=== PATIENT | male | born 1945 | race Caucasian/White ===

== ENCOUNTER 2020-02-12 07:00 | Outpatient (REF) | payer MEDICARE, SELFPAY ==
[2020-02-12 11:37] LABS: Estimated Average Glucose 108 mg/dL; Hemoglobin A1c % 5.4 %
[2020-02-12 11:41] LABS: Alanine Aminotransferase 19 U/L (0-40); Albumin Level 4.2 g/dL (3.5-5.0); Alkaline Phosphatase 66 U/L (39-117); Anion Gap 13 (12-20); Aspartate Amino Transferase 17 U/L (5-37); Bilirubin Total 0.4 mg/dL (0.0-1.0); Blood Urea Nitrogen 24 mg/dL (9-16); Calcium 8.8 mg/dL (8.4-10.2); Carbon Dioxide 25 mmol/L (22-29); Chloride 106 mmol/L (96-108); Cholesterol 184 mg/dL; Estimated Glomerular Filt Rate > 60; Glucose Fasting 106 mg/dL (60-99); HDL Cholesterol 49 mg/dL; LDL Cholesterol Calculated 112 mg/dl; Potassium 4.5 mmol/l (3.3-5.1); Sodium 139 mmol/L (135-145); Total Protein 6.6 g/dL (6.5-8.0); Triglycerides 117 mg/dL
== END 2020-02-12 07:01 | disposition home or self-care (01) ==
LOC: HO.HMGCLDS 07:00
PROVIDERS: PCP Internal Medicine; Visit Provider Internal Medicine
DX: E78.9 Disorder of lipoprotein metabolism, unspecified (principal); R73.09 Other abnormal glucose; I10 Essential (primary) hypertension
CPT/HCPCS: 80053; 80061; 83036

== ENCOUNTER 2020-11-19 09:23 | Emergency (ER) | payer MEDICARE, SELFPAY ==
[2020-11-19] VITALS (7 sets, daily range): BP systolic 146–162; BP diastolic 51–67; PULSE 51–57; RESP 14–18; TEMP 36.5–36.6; O2SAT 97–98; BMI 32.5
--- NOTE | 2020-11-19 | ECG_ITS ---
Test Reason : ABNORMAL EKG Blood Pressure : / mmHG Vent. Rate : 055 BPM Atrial Rate : 055 BPM P-R Int : 190 ms QRS Dur : 098 ms QT Int : 462 ms P-R-T Axes : 041 -32 031 degrees QTc Int : 441 ms Sinus bradycardia Left axis deviation Abnormal ECG When compared with ECG of 18-OCT-2014 13:04, No significant change was found Referred By: Generic ED Physician Electronically Signed By:BERNARDINO LIANG
--- NOTE | ~2020-11-19 | MR_ITS ---
EXAMINATION: MRI BRAIN WITHOUT CONTRAST CLINICAL INFORMATION: Dizziness. Blurry vision. COMPARISON: CT scan of the head 11/19/2020. Brain MRI 10/05/2008. TECHNIQUE: Multiplanar MR imaging of the brain was performed without contrast. FINDINGS: There are a few scattered nonspecific foci of T2 FLAIR signal hyperintensity within the periventricular white matter. No acute territorial infarct. No pathological magnetic susceptibility artifact. Intracranial vascular flow voids are maintained. There is no intracranial mass effect or midline shift. No abnormal extra-axial collection. Lateral and third ventricles are normal. No hydrocephalus. Midline structures including the cervicomedullary junction are normal. No acute bone marrow signal changes. No mastoid or middle ear effusion. Trivial mucosal thickening within the alveolar recesses of the maxillary sinuses. Otherwise no active paranasal sinus disease. Globes and orbits are symmetric. MR/MR head/brain wo con IMPRESSION: Unremarkable examination. No evidence of acute territorial infarct or hemorrhage.
--- NOTE | ~2020-11-19 | XR_ITS ---
EXAMINATION: XR CHEST CLINICAL INFORMATION: Chest pain COMPARISON: Previous chest x-ray September 2014 TECHNIQUE: Frontal view of the chest was obtained. FINDINGS: The cardiac and mediastinal contours are stable. The lung volumes are low. There is subsegmental atelectasis at the left lung base. The lungs are otherwise clear. There is no pleural effusion or pneumothorax. There are degenerative changes of the spine. XR/XR chest 1V IMPRESSION: Low lung volumes and subsegmental atelectasis at the left lung base.
--- NOTE | ~2020-11-19 | CT_ITS ---
EXAMINATION: CT HEAD WITHOUT CONTRAST CLINICAL INFORMATION: Dizziness. COMPARISON: None TECHNIQUE: Contiguous axial imaging was performed from the skull base to vertex without intravenous administration of contrast. This CT examination was performed using dose optimization techniques as appropriate, variously including the following: *Automated exposure control *Adjustment of mA and/or kV according to patient size (this includes techniques or standardized protocols for targeted exams where dose is matched to indication/reason for exam; i.e. extremities or head) *Use of iterative reconstruction technique DLP: 631 mGy-cm FINDINGS: There is no evidence of acute intracranial hemorrhage or territorial infarction. No abnormal mass effect or midline shift is seen. Waters to white matter differentiation is well preserved. No extra-axial fluid collections are identified. The ventricles are normal in size. There is no abnormal attenuation within the brain parenchyma. The osseous structures and soft tissues are normal. The mastoid air cells and visualized portions of the paranasal sinuses are well aerated. CT/CT head/brain wo con IMPRESSION: No acute intracranial process seen.
[2020-11-19 13:07] LABS: MANUAL DIFF FLAG NO
--- NOTE | 2020-11-19 13:07 | ED_ITS ---
HPI - Dizziness General Chief Complaint: Dizziness Stated Complaint: abormal ekg Time Seen by Provider: 11/19/20 09:40 Source: patient and family ( at bedside ) Mode of arrival: ambulatory Limitations: no limitations History of Present Illness HPI Narrative: 75-year-old male with a past medical history of hypertension, migraine headaches, prostate cancer in remission and head injury over [address] scan of brain which was normal per patient being followed by Dr. Clark who denies being on any blood thinners presenting to the ED with complaints of dizziness since Wednesday when he got out of bed too quickly. He reports the dizziness is worse when he lays down flat or when he stands up quickly. He reports he has associated nausea. He also reports blurry vision when the dizziness comes on. Patient reports he took some of his ex-'s meclizine which made his symptoms worse on Wednesday. Reports that he took his son's Dramamine on Wednesday and he felt mild improvement although did not taken any longer. He reports he did not take any medications today. Otherwise denies any recent falls or head injury, headaches at this time, changes of vision at this time, any episodes of vomiting, chest pain, shortness of breath, dyspnea on exertion, orthopnea, abdominal pain, dysuria, hematuria, black or bloody stools, palpitations or lower extremity edema or any other symptoms complaints or kwadwo rns at this time. MD elicited complaint: dizziness Onset (ago): day(s) (4 days) Timing: sudden onset and intermittent Severity: moderate Description: other (Feels like his whole body is upside down and his head on the floor) Context: change in body position History of similar symptoms: No Exacerbating factors: movement/ambulation, change in body position and position/lying down Relieving factors: nothing Associated symptoms: nausea and other (Blurry vision) Related Data Home Medications Medication Instructions Recorded Confirmed amitriptyline 10 mg tablet 10 mg PO BEDTIME 02/19/20 solifenacin 10 mg tablet 10 mg PO DAILY 02/19/20 Previous Rx's Medication Instructions Recorded ezetimibe 10 mg tablet 10 mg PO DAILY #90 tab 07/07/20 lisinopril 40 mg tablet 40 mg PO DAILY #90 tab 08/07/20 hydrochlorothiazide 12.5 mg PO DAILY #30 tab 11/19/20 Allergies Allergy/AdvReac Type Severity Reaction Status Date / Time sertraline AdvReac Unknown facial Verified 11/19/20 09:37 numbness simvastatin AdvReac Unknown sore Verified 11/19/20 09:37 muscles Review of Systems Review of Systems: Constitutional : No Fever, No Chills, No Night Sweats, No Fatigue, No Malaise ENT/Mouth : No Ear Pain, No Nasal Congestion, No Sinus Pain, No sore throat, No Rhinorrhea Eyes: No Eye Pain, No Swelling, No Redness, No Foreign Body, No Discharge, No Vision Changes Cardiovascular : No Chest Pain, No SOB, No Dyspnea on Exertion, No Orthopnea, No Palpitations Respiratory : No Cough, No Sputum, No Wheezing, No Dyspnea Gastrointestinal : Positive intermittent nausea with the blurry vision and dizziness, No Vomiting, No Diarrhea, No Constipation, No abdominal Pain, No Hematochezia, No Melena Genitourinary : No Dysuria, No Urinary Frequency, No Urinary Incontinence, No Urgency, No Flank Pain Musculoskeletal : No joint pain, No Myalgias Skin : No lacerations Neuro : Positive intermittent dizziness with blurry vision, No Focal weakness, no general weakness, No Numbness, No Paresthesias, No Loss of Consciousness, No Headache Yes all other systems are reviewed and are negative [facility] Past Medical History Attestation statement: The following information was validated with the patient. Surgical History H/O prostatectomy History of umbilical hernia repair Hx of cholecystectomy Family History Family History Father Skin cancer Lymphoma Mother No problems noted. Daughter Migraine Maternal Grandfather No problems noted. Maternal Grandmother No problems noted. Paternal Grandfather No problems noted. Paternal Grandmother No problems noted. Brother No problems noted. Son No problems noted. Son No problems noted. Social History Social History Patient Tobacco Use Status: Current someday Tobacco user Use of substances other than those prescribed or required for medical reasons: No Advance Directives: No Advance Directives Information Provided: Yes Physical Exam Vital Signs: Vital Signs: Last Vital Signs Temp 97.9 F 11/19/20 14:37 Pulse 55 11/19/20 16:16 Resp 18 11/19/20 16:16 BP 146/51 H 11/19/20 16:16 Pulse Ox 97 11/19/20 16:16 Body Mass Index 32.5 Vital signs have been reviewed as normal and appeared to be correct. Blood pressure normal. Heart rate normal. Respiration rate normal. Temperature normal. Oxygen saturation normal. Appearance: Alert. Oriented X3. No acute distress. Head: Normal external exam. Normocephalic. Atraumatic. Able to rotate head bilaterally. Eyes: PERRLA. EOMI. No nystagmus noted. Conjunctiva and sclera normal. Eyelids normal. Corneal reflex normal. ENT: EAC normal. TM's Normal. Hearing normal. Pharynx normal. Uvula midline. tongue midline. Moist mucous membranes. No trismus noted. No drooling noted. No muffled voice noted. No nystagmus noted. Neck: Normal inspection. Neck supple. FROM. No adenopathy. Trachea midline. Thyroid Normal. No meningeal signs. No neck mass noted. CVS: Normal heart rate and rhythm. Heart sound normal. No murmurs noted. Pulses normal throughout. Respiratory: No respiratory distress. Painless inspiration. Breath sounds normal. No wheezes/rales/rhonchi noted. Chest nontender. No accessory muscle usage noted or decreased air movement noted. Abdomen: Soft and nontender. Bowel sounds normal in all 4 quadrants. No distention noted. No organomegaly noted. No visible injury noted. Back: No CVA tenderness. Full range of motion noted. Skin: Skin warm and dry. Normal skin color. Normal skin turgor. No rashes/lesions/lacerations noted. Extremities: No lower extremity edema. Extremities exhibit normal range of motion. Extremities nontender. Able to shrug shoulders bilaterally and keep up against resistance. Neuro: Oriented X 3. No motor deficit. No sensory deficit. Reflexes normal. Moving all extremities. No focal motor deficits. Cranial nerves II-XI intact bilaterally. Facial strength normal. Normal cognition. Speech normal. Gait normal. Strength 5/5 throughout. No pronator drift. No tremor noted. No fasciculations noted. No rigidity noted. Muscle tone normal throughout. No asterixis noted. Fgpyro-pd-paee test normal. Heel to white test normal. Tandem gait normal. Does not sway with eyes open. Romberg test negative. Rapid alternating movement upper extremity normal. Rapid alternating movement lower extremity normal. Hand drop from overhead Misses face. NIHSS score 0. NIH Stroke Scale Internal: Initial- Upon Arrival Time: 12:00 Level of Consciousness: Alert Level of Consciousness Questions: Answers both questions correctly Level of Consciousness Commands: Performs both tasks correctly Best Gaze: Normal Visual: No visual loss Facial Palsy: Normal Motor Arm (Right): No drift Motor Arm (Left): No drift Motor Leg (Right): No drift Motor Leg (Left): No drift Limb Ataxia: Absent Sensory: Normal Best Language: No aphasia Dysarthia: Normal Extinction and Inattention: No abnormality Score: 0 Course Course Course Narrative: 12pm - 75-year-old male presenting to the ED with complaints of dizziness since Wednesday when he got out of bed too quickly. He reports the dizziness is worse when he lays down flat or when he stands up quickly. He reports he has associated nausea. He also reports blurry vision when the dizziness comes on. Patient not on any blood thinners. No recent head injury or falls. On exam patient is alert and oriented x3. Not in any acute distress. Patient has a normal neuro exam and normal steady gait. NIH SS score 0. Patient has non disabling symptoms therefore not a tPA candidate and symptoms started 4 days ago. CV RRR. Lungs clear to auscultation. Abdomen is soft and nontender. No lower extremity edema or calf tenderness is noted. Plan: Labs, chest x-ray, EKG, CT scan of brain, orthostatic vitals then re- evaluate. Reevaluation(s) Reevaluation #1: - labs reviewed and all within normal limits. UA within normal limits no evidence of UTI. EKG within normal limits no acute processes were noted. CT scan of brain within normal limits no acute processes were noted. Chest x-ray within normal limits no acute processes are noted. MRI of brain without contrast negative for stroke or any acute processes. Will DC home with a short course of hydrochlorothiazide 12.5 mg for vertigo and instructions follow-up with primary care provider. Patient and at bedside understand and agree to this plan. Time: 16:37 [facility] - Dizziness Medical Records Attestation: I reviewed the patient's medical records. Lab Data Attestation: I reviewed the patient's lab results. Result diagrams: 11/19/20 13:00 11/19/20 13:00 Labs: Lab Results 11/19/20 11/19/20 11/19/20 Range/Units 13:00 13:00 13:00 WBC 9.3 (4.8-10.8) X10*3/uL RBC 4.96 (4.60-5.80) X10*6/uL Hgb 14.5 (14.0-18.0) g/dl Hct 42.4 (42-52) % MCV 85.5 (80-98) fL MCH 29.2 (27.0-33.0) pg MCHC 34.2 (31.0-36.0) g/dl RDW 14.8 (11.0-16.0) % Plt Count 259 (160-400) X10*3/uL MPV 9.4 (9.4-12.4) fL Immature Gran % (Auto) 0.6 H (0.0-0.4) % Neut % (Auto) 63.0 (45-73) % Lymph % (Auto) 22.6 (20-40) % [place] % (Auto) 6.4 (2-11) % Eos % (Auto) 6.8 H (0-4) % Baso % (Auto) 0.6 (0-2) % Lymph # (Auto) 2.1 (1.2-4.9) X10*3/uL [place] # (Auto) 0.6 (0.1-1.2) X10*3/uL Eos # (Auto) 0.6 H (0.0-0.4) X10*3/uL Baso # (Auto) 0.1 (0.0-0.2) X10*3/uL Abs Immat Gran (auto) 0.06 H (0.00-0.03) X10*3/uL Absolute Neuts (auto) 5.9 (2.0-8.3) X10*3/uL Absolute Nucleated RBC 0.000 (0.0-0.012) X10*3/uL Nucleated RBC % (auto) 0.0 (0.0-0.2) /100WBC Sodium 141 (135-145) mmol/L Potassium 4.3 (3.3-5.1) mmol/L Chloride 108 (96-108) mmol/L Carbon Dioxide 24 (22-29) mmol/L Anion Gap 13 (12-20) BUN 16 (9-16) mg/dL Creatinine 0.95 (0.5-1.4) mg/dL Estim Creat Clear Calc 64.4 Estimated GFR > 60 Random Glucose 93 (60-115) mg/dL Calcium 9.1 (8.4-10.2) mg/dL Magnesium (1.6-2.6) mg/dL Total Bilirubin (0.0-1.0) mg/dL AST (5-37) U/L ALT (0-40) U/L Alkaline Phosphatase (39-117) U/L Troponin I High Sens < 3.5 (<3.5-35.0) ng/L B-Natriuretic Peptide (<100) pg/mL Total Protein (6.5-8.0) g/dL Albumin (3.5-5.0) g/dL Urine Color Urine Appearance Urine pH (5.0-8.0) Ur Specific [place] (1.005-1.025) Urine Protein (NEG-TRACE) MG/DL Urine Glucose (UA) (NEG) MG/DL Urine Ketones (NEG) MG/DL Urine Blood (NEG) Urine Nitrite (NEG) Ur Leukocyte Esterase (NEG) 11/19/20 11/19/20 11/19/20 Range/Units 13:00 13:00 14:03 WBC (4.8-10.8) X10*3/uL RBC (4.60-5.80) X10*6/uL Hgb (14.0-18.0) g/dl Hct (42-52) % MCV (80-98) fL MCH (27.0-33.0) pg MCHC (31.0-36.0) g/dl RDW (11.0-16.0) % Plt Count (160-400) X10*3/uL MPV (9.4-12.4) fL Immature Gran % (Auto) (0.0-0.4) % Neut % (Auto) (45-73) % Lymph % (Auto) (20-40) % [place] % (Auto) (2-11) % Eos % (Auto) (0-4) % Baso % (Auto) (0-2) % Lymph # (Auto) (1.2-4.9) X10*3/uL [place] # (Auto) (0.1-1.2) X10*3/uL Eos # (Auto) (0.0-0.4) X10*3/uL Baso # (Auto) (0.0-0.2) X10*3/uL Abs Immat Gran (auto) (0.00-0.03) X10*3/uL Absolute Neuts (auto) (2.0-8.3) X10*3/uL Absolute Nucleated RBC (0.0-0.012) X10*3/uL Nucleated RBC % (auto) (0.0-0.2) /100WBC Sodium 139 (135-145) mmol/L Potassium 4.7 (3.3-5.1) mmol/L Chloride 107 (96-108) mmol/L Carbon Dioxide 22 (22-29) mmol/L Anion Gap 15 (12-20) BUN 16 (9-16) mg/dL Creatinine 0.92 (0.5-1.4) mg/dL Estim Creat Clear Calc 66.5 Estimated GFR > 60 Random Glucose 94 (60-115) mg/dL Calcium 9.1 (8.4-10.2) mg/dL Magnesium 2.1 (1.6-2.6) mg/dL Total Bilirubin 0.4 (0.0-1.0) mg/dL AST 19 (5-37) U/L ALT 19 (0-40) U/L Alkaline Phosphatase 75 (39-117) U/L Troponin I High Sens (<3.5-35.0) ng/L B-Natriuretic Peptide 43 (<100) pg/mL Total Protein 7.3 (6.5-8.0) g/dL Albumin 4.5 (3.5-5.0) g/dL Urine Color STRAW Urine Appearance CLEAR Urine pH 6.0 (5.0-8.0) Ur Specific [place] <= 1.005 (1.005-1.025) Urine Protein NEG (NEG-TRACE) MG/DL Urine Glucose (UA) NEG (NEG) MG/DL Urine Ketones NEG (NEG) MG/DL Urine Blood NEG (NEG) Urine Nitrite NEG (NEG) Ur Leukocyte Esterase NEG (NEG) Imaging Data Chest x-ray: Attestation: I personally reviewed and interpreted this imaging study as follows: Radiologist's impression: FINDINGS: The cardiac and mediastinal contours are stable. The lung volumes are low. There is subsegmental atelectasis at the left lung base. The lungs are otherwise clear. There is no pleural effusion or pneumothorax. There are degenerative changes of the spine. XR/XR chest 1V IMPRESSION: Low lung volumes and subsegmental atelectasis at the left lung base. CT scan - head: Attestation: I personally reviewed and interpreted this imaging study as follows: Radiologist's impression: FINDINGS: There is no evidence of acute intracranial hemorrhage or territorial infarction. No abnormal mass effect or midline shift is seen. Waters to white matter differentiation is well preserved. No extra-axial fluid collections are identified. The ventricles are normal in size. There is no abnormal attenuation within the brain parenchyma. The osseous structures and soft tissues are normal. The mastoid air cells and visualized portions of the paranasal sinuses are well aerated. CT/CT head/brain wo con IMPRESSION: No acute intracranial process seen. MRI of brain: Attestation: I personally reviewed and interpreted this imaging study as follows: Radiologist's impression: FINDINGS: There is no evidence of acute intracranial hemorrhage or territorial infarction. No abnormal mass effect or midline shift is seen. Waters to white matter differentiation is well preserved. No extra-axial fluid collections are identified. The ventricles are normal in size. There is no abnormal attenuation within the brain parenchyma. The osseous structures and soft tissues are normal. The mastoid air cells and visualized portions of the paranasal sinuses are well aerated. CT/CT head/brain wo con IMPRESSION: No acute intracranial process seen. ECG Data Attestation: I personally reviewed and interpreted this ECG as follows: ECG interpretation date: 11/19/20 ECG interpretation time: 09:36 Interpretation: Sinus bradycardia with ventricular rate of 55 with left axis deviation no acute ischemic change noted. Similar when compared to prior EKG on 03/20/2015. Critical Care Time Critical Care Time Critical Care Time: Yes Total Critical Care Time: 60 Attestation: I personally attest to this time spent taking care of the patient Discharge Plan Discharge Clinical Impression: Benign paroxysmal positional vertigo Patient Disposition: Home, Self-Care Instructions: Benign Paroxysmal Positional Vertigo (ED) Prescriptions: New hydrochlorothiazide 12.5 mg tablet 12.5 mg PO DAILY Qty: 30 RF: 0 No Action ezetimibe 10 mg tablet 10 mg PO DAILY Qty: 90 RF: 0 lisinopril 40 mg tablet 40 mg PO DAILY Qty: 90 RF: 0 amitriptyline 10 mg tablet 10 mg PO BEDTIME RF: 0 solifenacin 10 mg tablet 10 mg PO DAILY RF: 0 Referrals: Jessica Clark MD [Primary Care Provider] - 2 days Print Language: Chinese
[2020-11-19 13:09] LABS: Basophils Absolute Auto 0.1 X10*3/uL (0.0-0.2); Basophils Percent Auto 0.6 % (0-2); Eosinophils Absolute Auto 0.6 X10*3/uL (0.0-0.4); Eosinophils Percent Auto 6.8 % (0-4); Hematocrit 42.4 % (42-52); Hemoglobin 14.5 g/dl (14.0-18.0); Imm Gran Abs Auto 0.06 X10*3/uL (0.00-0.03); Imm Gran Pct Auto 0.6 % (0.0-0.4); Lymphocytes Absolute Auto 2.1 X10*3/uL (1.2-4.9); Lymphocytes Percent Auto 22.6 % (20-40); Mean Corpuscular HGB Conc 34.2 g/dl (31.0-36.0); Mean Corpuscular Hemoglobin 29.2 pg (27.0-33.0); Mean Corpuscular Volume 85.5 fL (80-98); Mean Platelet Volume 9.4 fL (9.4-12.4); Monocytes Absolute Auto 0.6 X10*3/uL (0.1-1.2); Monocytes Percent Auto 6.4 % (2-11); Neutrophils Absolute Auto 5.9 X10*3/uL (2.0-8.3); Platelet Count 259 X10*3/uL (160-400); Red Blood Count 4.96 X10*6/uL (4.60-5.80); Red Cell Distribution Width 14.8 % (11.0-16.0); White Blood Count 9.3 X10*3/uL (4.8-10.8)
[2020-11-19 13:31] LABS: Anion Gap 13 (12-20); Blood Urea Nitrogen 16 mg/dL (9-16); Calcium 9.1 mg/dL (8.4-10.2); Carbon Dioxide 24 mmol/L (22-29); Chloride 108 mmol/L (96-108); Creatinine Clr Calc Pharmacy 64.4; Estimated Glomerular Filt Rate > 60; Glucose Random 93 mg/dL (60-115); Potassium 4.3 mmol/L (3.3-5.1); Sodium 141 mmol/L (135-145)
[2020-11-19 13:32] LABS: Alanine Aminotransferase 19 U/L (0-40); Albumin Level 4.5 g/dL (3.5-5.0); Alkaline Phosphatase 75 U/L (39-117); Anion Gap 15 (12-20); Aspartate Amino Transferase 19 U/L (5-37); Bilirubin Total 0.4 mg/dL (0.0-1.0); Blood Urea Nitrogen 16 mg/dL (9-16); Calcium 9.1 mg/dL (8.4-10.2); Carbon Dioxide 22 mmol/L (22-29); Chloride 107 mmol/L (96-108); Creatinine Clr Calc Pharmacy 66.5; Estimated Glomerular Filt Rate > 60; Glucose Random 94 mg/dL (60-115); Magnesium 2.1 mg/dL (1.6-2.6); Potassium 4.7 mmol/L (3.3-5.1); Sodium 139 mmol/L (135-145); Total Protein 7.3 g/dL (6.5-8.0)
[2020-11-19 13:40] LABS: B Type Natriuretic Peptide 43 pg/mL (<100); Troponin-I High Sensitivity < 3.5 ng/L (<3.5-35.0)
[2020-11-19 14:16] LABS: Glucose Urine UA NEG (NEG); Leukocyte Esterase Urine NEG (NEG); Nitrite Urine NEG (NEG); Specific Gravity - Urine <= 1.005 (1.005-1.025); Urine Blood NEG (NEG); Urine Ketones NEG (NEG); Urine Protein NEG (NEG-TRACE)
[2020-11-19 14:19] LABS: Appearance Urine CLEAR; Color Urine STRAW
--- NOTE | 2020-11-19 16:19 | PC.NURSE ---
Pt reports feeling less dizzy and lightheaded since arriving to the ed. Pt returned from MRI, results pending He states that he felt slightly dizzy when he got up from the MRI bed. No apparent distress noted. Pt resting quietly, at bedside.
== END 2020-11-19 17:10 | disposition home or self-care (01) ==
PROVIDERS: Physician Assistant Medical; Emergency Provider Emergency Medicine Emergency Medical Services; PCP Internal Medicine
DX: H81.10 Benign paroxysmal vertigo, unspecified ear (principal); I10 Essential (primary) hypertension; F17.210 Nicotine dependence, cigarettes, uncomplicated; Z85.46 Personal history of malignant neoplasm of prostate
CPT/HCPCS: 36415; 70450; 70551; 71045; 80048; 80053; 81003; 83735; 83880; 84484; 85025; 93005; 99284; 99291

== ENCOUNTER 2021-05-14 06:02 | Outpatient (REF) | payer MEDICARE, SELFPAY ==
[2021-05-14 11:54] LABS: Alanine Aminotransferase 19 U/L (0-40); Albumin Level 4.1 g/dL (3.5-5.0); Alkaline Phosphatase 65 U/L (39-117); Anion Gap 11 (12-20); Aspartate Amino Transferase 17 U/L (5-37); Bilirubin Total 0.4 mg/dL (0.0-1.0); Blood Urea Nitrogen 23 mg/dL (9-16); Calcium 9.2 mg/dL (8.4-10.2); Carbon Dioxide 28 mmol/L (22-29); Chloride 108 mmol/L (96-108); Estimated Glomerular Filt Rate > 60; Glucose Random 107 mg/dL (60-115); Potassium 4.6 mmol/L (3.3-5.1); Sodium 142 mmol/L (135-145); Total Protein 6.7 g/dL (6.5-8.0)
== END 2021-05-14 06:03 | disposition home or self-care (01) ==
LOC: HO.HMGCLDS 06:02
PROVIDERS: Visit Provider Internal Medicine
DX: E78.9 Disorder of lipoprotein metabolism, unspecified (principal); G43.909 Migraine, unspecified, not intractable, without status migrainosus; I10 Essential (primary) hypertension; N32.9 Bladder disorder, unspecified; E66.09 Other obesity due to excess calories
CPT/HCPCS: 36415; 80053

== ENCOUNTER 2021-09-09 09:47 | Outpatient (REF) | payer MEDICARE, SELFPAY ==
[2021-09-09 11:43] LABS: Alanine Aminotransferase 20 U/L (0-40); Albumin Level 4.1 g/dL (3.5-5.0); Alkaline Phosphatase 69 U/L (39-117); Anion Gap 10 (12-20); Aspartate Amino Transferase 16 U/L (5-37); Bilirubin Total 0.7 mg/dL (0.0-1.0); Blood Urea Nitrogen 23 mg/dL (9-16); Calcium 9.2 mg/dL (8.4-10.2); Carbon Dioxide 26 mmol/L (22-29); Chloride 109 mmol/L (96-108); Estimated Glomerular Filt Rate > 60; Glucose Random 111 mg/dL (60-115); Potassium 4.4 mmol/L (3.3-5.1); Sodium 141 mmol/L (135-145); Total Protein 6.6 g/dL (6.5-8.0)
[2021-09-11 00:52] LABS: LDL Cholesterol Direct 153 mg/dL (<100)
== END 2021-09-09 09:48 | disposition home or self-care (01) ==
LOC: HO.HMGCLDS 09:47
PROVIDERS: Visit Provider Internal Medicine
DX: E78.9 Disorder of lipoprotein metabolism, unspecified (principal); G43.909 Migraine, unspecified, not intractable, without status migrainosus; H91.93 Unspecified hearing loss, bilateral; I10 Essential (primary) hypertension; N32.9 Bladder disorder, unspecified; E66.09 Other obesity due to excess calories
CPT/HCPCS: 36415; 80053; 83721

== ENCOUNTER 2021-11-22 07:44 | Emergency (ER) | payer MEDICARE, SELFPAY ==
--- NOTE | ~2021-11-22 | XR_ITS ---
EXAMINATION: XR CHEST CLINICAL INFORMATION: Chest pain COMPARISON: Chest 11/19/2020 TECHNIQUE: Frontal view of the chest was obtained. FINDINGS: The lungs are hyperinflated with no acute pneumonic process seen. Heart size and pulmonary vascularity is normal. No gross bony abnormality seen. XR/XR chest 1V IMPRESSION: Hypoexpanded lungs without acute process.
--- NOTE | 2021-11-22 07:51 | ECG_ITS ---
Test Reason : cp Blood Pressure : / mmHG Vent. Rate : 065 BPM Atrial Rate : 065 BPM P-R Int : 192 ms QRS Dur : 104 ms QT Int : 440 ms P-R-T Axes : 037 -35 038 degrees QTc Int : 457 ms Normal sinus rhythm Left axis deviation Nonspecific ST abnormality Abnormal ECG When compared with ECG of 19-NOV-2020 09:36, Nonspecific T wave abnormality no longer evident in Anterior leads Referred By: Phyllis Mcdaniel Electronically Signed By:WALLACE RAMON MD
[2021-11-22 07:53] VITALS: BP 160/82; BP 172/67; PULSE 63; PULSE 70; RESP 16; TEMP 36.6; O2SAT 96; O2SAT 97; BMI 31.1
[2021-11-22 08:01] VITALS: BP 163/63; PULSE 62; RESP 16; O2SAT 96
[2021-11-22 08:18] LABS: MANUAL DIFF FLAG NO
[2021-11-22 08:21] LABS: Basophils Absolute Auto 0.1 X10*3/uL (0.0-0.2); Basophils Percent Auto 0.7 % (0-2); Eosinophils Absolute Auto 0.4 X10*3/uL (0.0-0.4); Eosinophils Percent Auto 4.6 % (0-4); Hematocrit 40.6 % (42.0-52.0); Hemoglobin 13.9 g/dl (14.0-18.0); Imm Gran Abs Auto 0.07 X10*3/uL (0.00-0.03); Imm Gran Pct Auto 0.9 % (0.0-0.4); Mean Corpuscular HGB Conc 34.2 g/dl (31.0-36.0); Mean Corpuscular Hemoglobin 29.6 pg (27.0-33.0); Mean Corpuscular Volume 86.4 fL (80.0-98.0); Mean Platelet Volume 9.4 fL (9.4-12.4); Monocytes Absolute Auto 0.7 X10*3/uL (0.1-1.2); Monocytes Percent Auto 8.4 % (2-11); Neutrophils Absolute Auto 4.9 x10*3/uL (2.0-8.3); Neutrophils Percent Auto 60.4 % (45-73); Platelet Count 291 X10*3/uL (160-400); Red Cell Distribution Width 14.7 % (11.0-16.0); White Blood Count 8.1 X10*3/uL (4.8-10.8)
[2021-11-22 08:27] LABS: INTERNATIONAL NORM RATIO 0.9 (0.9-1.1); Prothrombin Time 10.6 SEC (10.0-13.1)
[2021-11-22 08:34] LABS: D Dimer High Sensitivity < 150 NG/ML
[2021-11-22 08:38] LABS: Alanine Aminotransferase 18 U/L (0-40); Albumin Level 4.1 g/dL (3.5-5.0); Alkaline Phosphatase 66 U/L (39-117); Anion Gap 14 (12-20); Aspartate Amino Transferase 17 U/L (5-37); Bilirubin Total 0.6 mg/dL (0.0-1.0); Blood Urea Nitrogen 24 mg/dL (9-16); Calcium 8.9 mg/dL (8.4-10.2); Carbon Dioxide 24 mmol/L (22-29); Chloride 109 mmol/L (96-108); Creatinine Clr Calc Pharmacy 58.1; Estimated Glomerular Filt Rate > 60; Glucose Random 131 mg/dL (60-115); Potassium 4.6 mmol/L (3.3-5.1); Sodium 142 mmol/L (135-145); Total Protein 6.7 g/dL (6.5-8.0)
[2021-11-22 08:42] LABS: Troponin-I High Sensitivity 60.1 ng/L (<3.5-35.0)
[2021-11-22 09:10] LABS: IDNOW Serial# 16C4AD1C
--- NOTE | 2021-11-22 09:10 | ED_ITS ---
HPI - Chest Pain General Chief Complaint: Chest Pain Stated Complaint: heavy/chest discomfort Time Seen by Provider: 11/22/21 07:55 Source: patient Mode of arrival: EMS History of Present Illness HPI narrative: 76-year-old male with history of hypertension denies any diabetes states that for the past 3 days he has been having intermittent and transient chest pressure on exertion that is relieved by rest. He denies any associated dizziness, shortness of breath, nausea, diaphoresis and states that this morning he began having the same chest pressure that seemed to stay longer and again was not associated with any additional symptoms, EMS provided aspirin in route. Patient states is Watson subsided at this time. Related Data Home Medications Medication Instructions Recorded Confirmed solifenacin 10 mg tablet 10 mg PO DAILY 02/19/20 09/09/21 aspirin 81 mg tablet,delayed 81 mg PO DAILY 09/09/21 09/09/21 release (Adult Aspirin Regimen) omega-3 fatty acids-fish oil 360 1 cap PO DAILY 09/09/21 09/09/21 mg-1,200 mg capsule (Fish Oil) Previous Rx's Medication Instructions Recorded ezetimibe 10 mg tablet 10 mg PO DAILY #90 tabs 01/07/21 cyclobenzaprine 5 mg tablet 5 mg PO BEDTIME 30 days #30 tabs 05/13/21 amitriptyline 10 mg tablet 10 mg PO BEDTIME 90 days #90 tabs 06/30/21 lisinopril 40 mg tablet 40 mg PO DAILY 90 days #90 tabs 09/09/21 Allergies Allergy/AdvReac Type Severity Reaction Status Date / Time sertraline AdvReac Unknown facial Verified 11/22/21 07:59 numbness simvastatin AdvReac Unknown sore Verified 11/22/21 07:59 muscles Review of Systems Review of Systems: Pertinent positives and negatives as stated in HPI 10 point review of systems is otherwise negative. [facility] Past Medical History Source: nursing notes reviewed Surgical History H/O prostatectomy History of umbilical hernia repair Hx of cholecystectomy Family History Family History Father Skin cancer Lymphoma Mother No problems noted. Daughter Migraine Maternal Grandfather No problems noted. Maternal Grandmother No problems noted. Paternal Grandfather No problems noted. Paternal Grandmother No problems noted. Brother No problems noted. Son No problems noted. Son No problems noted. Social History Social History Housing: House Patient Tobacco Use Status: Current someday Tobacco user Tobacco use type: Cigar e-Cigarette/Vaping Use: Never Used Advance Directives: Yes Advance Directives Information Provided: Yes Advance Directives on File: No Current occupational status: retired Cognitive needs: No Hearing needs: No Vision needs: No Physical Exam Vital Signs: Vital Signs: Last Vital Signs Temp 98 F 11/22/21 07:53 Pulse 56 11/22/21 10:16 Resp 14 11/22/21 10:16 BP 136/57 L 11/22/21 10:16 Pulse Ox 97 11/22/21 10:16 O2 Del Method 11/22/21 10:16 BMI result Body Mass Index 31.7 VITAL SIGNS: Reviewed. GENERAL: Elevated BMI,Well developed, well nourished, in no acute distress. HEAD: Normocephalic/atraumatic EYES: PERRLA, EOMI EARS: Ext canals without abnormality OROPHARYNX: no oral lesions noted, posterior pharynx clear NECK: Supple, no adenopathy LUNGS: Normal breath sounds. No adventitious sounds or accessory muscle use. SpO2<96> CARDIOVASCULAR: Regular rate and rhythm without noted murmurs, no JVD or lower extremity edema. ABDOMEN: Soft, non-tender, non-distended with bowel sounds. MUSCULOSKELETAL: No tenderness, deformities, or effusions noted on gross ins pection. EXTREMITIES: No cyanosis, clubbing or edema. SKIN: Inspection of the skin reveals no rashes NEUROLOGIC: Alert and oriented x 4. Strength and sensation to light touch were grossly intact x 4. Course Course Course Narrative: 76-year-old male with history and clinical presentation concerning for unstable angina, he did receive aspirin, initial troponin was noted to be 60.1 and follow-up troponin within 1 hour is noted to be flat, there are no ST elevations on the EKG but patient has continued to have intermittent squeezing chest and discussed case with Cardiology. Reevaluation(s) Reevaluation #1: Troponin noted to be elevated at 60.1, repeat is being ordered as well as repeat EKG. Patient received 324 of aspirin already. Time: 09:12 Reevaluation #2: Dr Kelley to see patient. Recommends Hep, Tx to [facility] for cath. Time: 09:56 Reevaluation #3: Spoke with [facility]. Time: 10:27 Additional Reevaluation(s): 1045: I discussed the case with Dr. Mcclure who recommends telemetry floor as well as nitropaste, but patient is pain free at this time and will provide 0.4SL MDM - Chest Pain Lab Data Result diagrams: 11/22/21 08:10 11/22/21 08:10 Labs: Lab Results 11/22/21 11/22/21 11/22/21 Range/Units 08:10 08:10 08:10 WBC 8.1 (4.8-10.8) X10*3/uL RBC 4.70 (4.60-5.80) X10*6/uL Hgb 13.9 L (14.0-18.0) g/dl Hct 40.6 L (42.0-52.0) % MCV 86.4 (80.0-98.0) fL MCH 29.6 (27.0-33.0) pg MCHC 34.2 (31.0-36.0) g/dl RDW 14.7 (11.0-16.0) % Plt Count 291 (160-400) X10*3/uL MPV 9.4 (9.4-12.4) fL Immature Gran % (Auto) 0.9 H (0.0-0.4) % Neut % (Auto) 60.4 (45-73) % Lymph % (Auto) 25.0 (20-40) % [place] % (Auto) 8.4 (2-11) % Eos % (Auto) 4.6 H (0-4) % Baso % (Auto) 0.7 (0-2) % Lymph # (Auto) 2.0 (1.2-4.9) X10*3/uL [place] # (Auto) 0.7 (0.1-1.2) X10*3/uL Eos # (Auto) 0.4 (0.0-0.4) X10*3/uL Baso # (Auto) 0.1 (0.0-0.2) X10*3/uL Abs Immat Gran (auto) 0.07 H (0.00-0.03) X10*3/uL Absolute Neuts (auto) 4.9 (2.0-8.3) x10*3/uL Absolute Nucleated RBC 0.000 (0.0-0.012) X10*3/uL Nucleated RBC % (auto) 0.0 (0.0-0.2) /100WBC PT 10.6 (10.0-13.1) SEC INR 0.9 (0.9-1.1) APTT 28.0 (26.0-36.4) SEC D-Dimer High Sensitivty NG/ML Sodium 142 (135-145) mmol/L Potassium 4.6 (3.3-5.1) mmol/L Chloride 109 H (96-108) mmol/L Carbon Dioxide 24 (22-29) mmol/L Anion Gap 14 (12-20) BUN 24 H (9-16) mg/dL Creatinine 1.05 (0.5-1.4) mg/dL Estim Creat Clear Calc 58.1 Estimated GFR > 60 Random Glucose 131 H (60-115) mg/dL Calcium 8.9 (8.4-10.2) mg/dL Magnesium 2.0 (1.6-2.6) mg/dL Total Bilirubin 0.6 (0.0-1.0) mg/dL AST 17 (5-37) U/L ALT 18 (0-40) U/L Alkaline Phosphatase 66 (39-117) U/L Troponin I High Sens (<3.5-35.0) ng/L B-Natriuretic Peptide (<100) pg/mL Total Protein 6.7 (6.5-8.0) g/dL Albumin 4.1 (3.5-5.0) g/dL COVID-19 (VEE) (Negative) COVID-19 Clin Com 11/22/21 11/22/21 11/22/21 Range/Units 08:10 08:10 08:49 WBC (4.8-10.8) X10*3/uL RBC (4.60-5.80) X10*6/uL Hgb (14.0-18.0) g/dl Hct (42.0-52.0) % MCV (80.0-98.0) fL MCH (27.0-33.0) pg MCHC (31.0-36.0) g/dl RDW (11.0-16.0) % Plt Count (160-400) X10*3/uL MPV (9.4-12.4) fL Immature Gran % (Auto) (0.0-0.4) % Neut % (Auto) (45-73) % Lymph % (Auto) (20-40) % Mower % (Auto) (2-11) % Eos % (Auto) (0-4) % Baso % (Auto) (0-2) % Lymph # (Auto) (1.2-4.9) X10*3/uL Mower # (Auto) (0.1-1.2) X10*3/uL Eos # (Auto) (0.0-0.4) X10*3/uL Baso # (Auto) (0.0-0.2) X10*3/uL Abs Immat Gran (auto) (0.00-0.03) X10*3/uL Absolute Neuts (auto) (2.0-8.3) x10*3/uL Absolute Nucleated RBC (0.0-0.012) X10*3/uL Nucleated RBC % (auto) (0.0-0.2) /100WBC PT (10.0-13.1) SEC INR (0.9-1.1) APTT (26.0-36.4) SEC D-Dimer High Sensitivty < 150 NG/ML Sodium (135-145) mmol/L Potassium (3.3-5.1) mmol/L Chloride (96-108) mmol/L Carbon Dioxide (22-29) mmol/L Anion Gap (12-20) BUN (9-16) mg/dL Creatinine (0.5-1.4) mg/dL Estim Creat Clear Calc Estimated GFR Random Glucose (60-115) mg/dL Calcium (8.4-10.2) mg/dL Magnesium (1.6-2.6) mg/dL Total Bilirubin (0.0-1.0) mg/dL AST (5-37) U/L ALT (0-40) U/L Alkaline Phosphatase (39-117) U/L Troponin I High Sens 60.1 H (<3.5-35.0) ng/L B-Natriuretic Peptide (<100) pg/mL Total Protein (6.5-8.0) g/dL Albumin (3.5-5.0) g/dL COVID-19 (VEE) Negative (Negative) COVID-19 Clin Com See Note 11/22/21 Range/Units 09:19 WBC (4.8-10.8) X10*3/uL RBC (4.60-5.80) X10*6/uL Hgb (14.0-18.0) g/dl Hct (42.0-52.0) % MCV (80.0-98.0) fL MCH (27.0-33.0) pg MCHC (31.0-36.0) g/dl RDW (11.0-16.0) % Plt Count (160-400) X10*3/uL MPV (9.4-12.4) fL Immature Gran % (Auto) (0.0-0.4) % Neut % (Auto) (45-73) % Lymph % (Auto) (20-40) % Mower % (Auto) (2-11) % Eos % (Auto) (0-4) % Baso % (Auto) (0-2) % Lymph # (Auto) (1.2-4.9) X10*3/uL Mower # (Auto) (0.1-1.2) X10*3/uL Eos # (Auto) (0.0-0.4) X10*3/uL Baso # (Auto) (0.0-0.2) X10*3/uL Abs Immat Gran (auto) (0.00-0.03) X10*3/uL Absolute Neuts (auto) (2.0-8.3) x10*3/uL Absolute Nucleated RBC (0.0-0.012) X10*3/uL Nucleated RBC % (auto) (0.0-0.2) /100WBC PT (10.0-13.1) SEC INR (0.9-1.1) APTT (26.0-36.4) SEC D-Dimer High Sensitivty NG/ML Sodium (135-145) mmol/L Potassium (3.3-5.1) mmol/L Chloride (96-108) mmol/L Carbon Dioxide (22-29) mmol/L Anion Gap (12-20) BUN (9-16) mg/dL Creatinine (0.5-1.4) mg/dL Estim Creat Clear Calc Estimated GFR Random Glucose (60-115) mg/dL Calcium (8.4-10.2) mg/dL Magnesium (1.6-2.6) mg/dL Total Bilirubin (0.0-1.0) mg/dL AST (5-37) U/L ALT (0-40) U/L Alkaline Phosphatase (39-117) U/L Troponin I High Sens 59.4 H (<3.5-35.0) ng/L B-Natriuretic Peptide 44 (<100) pg/mL Total Protein (6.5-8.0) g/dL Albumin (3.5-5.0) g/dL COVID-19 (VEE) (Negative) COVID-19 Clin Com ECG Data ECG #1: Attestation: I personally reviewed and interpreted this ECG as follows: Prior ECG tracings: available for review Interpretation: Normal sinus rhythm, HR -65, no STEMI, NE /QRS /QTC are within limits. 0934: SB, HR-52, no STEMI, NE/QRS /QTC are within normal limits. Critical Care Time Critical Care Time Critical Care Time: Yes Total Critical Care Time: 30 Attestation: I personally attest to this time spent taking care of the patient. Discharge Plan Discharge Clinical Impression: Non-ST elevation MD (NSTEMI), Hypertension, essential Patient Disposition: [facility] Transfer Details: Cardiology, possible cath Prescriptions: No Action amitriptyline 10 mg tablet 10 mg PO BEDTIME 90 Days Qty: 90 0RF solifenacin 10 mg tablet 10 mg PO DAILY ezetimibe 10 mg tablet 10 mg PO DAILY Qty: 90 0RF cyclobenzaprine 5 mg tablet 5 mg PO BEDTIME 30 Days Qty: 30 0RF omega-3 fatty acids-fish oil [Fish Oil] 360-1,200 mg capsule 1 cap PO DAILY aspirin [Adult Aspirin Regimen] 81 mg tablet,delayed release (DR/EC) 81 mg PO DAILY lisinopril 40 mg tablet 40 mg PO DAILY 90 Days Qty: 90 1RF
[2021-11-22 09:11] LABS: COVID-19 Test Negative (Negative)
--- NOTE | 2021-11-22 09:12 | ECG_ITS ---
Test Reason : REPEAT Blood Pressure : / mmHG Vent. Rate : 052 BPM Atrial Rate : 052 BPM P-R Int : 198 ms QRS Dur : 102 ms QT Int : 478 ms P-R-T Axes : 035 -32 014 degrees QTc Int : 444 ms Sinus bradycardia Left axis deviation Abnormal ECG When compared with ECG of 19-NOV-2020 09:36, No significant change was found Referred By: Phyllis Mcdaniel Electronically Signed By:BERNARDINO LIAGN
[2021-11-22 09:44] LABS: Troponin-I High Sensitivity 59.4 ng/L (<3.5-35.0)
--- NOTE | 2021-11-22 10:11 | PM.CNCAR ---
History of Present Illness History of Present Illness Date of Service: 11/22/21 Chief complaint: heavy/chest discomfort Narrative: This is a cardiology consultation regarding chest pain and elevated troponins. Patient denies any history of coronary disease or myocardial infarction or cardiomyopathy or in fact any cardiac issues whatsoever in the past. He states that couple days ago, he was working on his car and at that time he was developing right-sided chest pain and also had right arm discomfort. Since that time, it has been often on. He is not getting any symptoms with walking but whenever he is doing anything more physical he is feeling symptoms. Then he also noticed discomfort in the substernal area where it felt like a pressure. That prompted him to come to the hospital. Troponins were checked and they were high. Subsequently, we have been asked to see him. Currently he is pain free. Resting in bed comfortably. Review of Systems Review of Systems: Yes all other systems are reviewed and are negative Constitutional: Constitutional: Reports as per HPI Eyes: Eyes: Reports as per HPI ENT: Reports as per HPI Cardiovascular: Cardiovascular: Reports as per HPI, Denies acrocyanosis, Denies cool extremities, Reports chest pain, Denies leg edema, Denies lightheadedness, Denies palpitations and Denies dyspnea Respiratory: Respiratory: Reports as per HPI, Reports no additional respiratory complaints and Denies dyspnea Gastrointestinal: Gastrointestinal: Reports as per HPI and Reports no additional gastrointestinal complaints Genitourinary: Genitourinary: Reports no additional male genitourinary complaints and Reports as per HPI Musculoskeletal: Musculoskeletal: Reports no additional musculoskeletal complaints and Reports as per HPI Integumentary/Breasts: Skin/Breast: Reports system reviewed and no additional complaints, except as docu Neurologic: Reports system reviewed and no additional complaints, except as documented and Reports as per HPI Psychiatric: Psychiatric: Reports no additional psychiatric complaints and Reports as per HPI Endocrine: Endocrine: Reports no additional endocrine complaints, Reports as per HPI and Denies palpitations Hematologic/Lymphatic: Hematologic/Lymphatic: Reports no additional hematologic/lymphatic complaints and Reports as per HPI Allergic/Immunologic: Allergic/Immunologic: Reports no additional allergic/immunologic complaints and Reports as per HPI [facility] Past Medical History Medical History (Updated 11/22/21 @ 11:09 by Percy Kelley MD) Hypertension, essential Lipid disorder Migraine headache Family History Family History Father Skin cancer Lymphoma Mother No problems noted. Daughter Migraine Maternal Grandfather No problems noted. Maternal Grandmother No problems noted. Paternal Grandfather No problems noted. Paternal Grandmother No problems noted. Brother No problems noted. Son No problems noted. Son No problems noted. Surgical History Surgical History H/O prostatectomy History of umbilical hernia repair Hx of cholecystectomy Social History Social History Housing: House Patient Tobacco Use Status: Current someday Tobacco user Tobacco use type: Cigar e-Cigarette/Vaping Use: Never Used Advance Directives: Yes Advance Directives Information Provided: Yes Advance Directives on File: No Current occupational status: retired Cognitive needs: No Hearing needs: No Vision needs: No Meds Allergies Allergy/AdvReac Type Severity Reaction Status Date / Time sertraline AdvReac Unknown facial Verified 11/22/21 07:59 numbness simvastatin AdvReac Unknown sore Verified 11/22/21 07:59 muscles Home Medications Medication Instructions Recorded Confirmed Last Taken Type solifenacin 10 mg tablet 10 mg PO DAILY 02/19/20 09/09/21 Unknown History aspirin 81 mg tablet,delayed 81 mg PO DAILY 09/09/21 09/09/21 Unknown History release (Adult Aspirin Regimen) omega-3 fatty acids-fish oil 360 1 cap PO DAILY 09/09/21 09/09/21 Unknown History mg-1,200 mg capsule (Fish Oil) Physical Exam Vital Signs: Vital Signs: Last Vital Signs Temp 98 F 11/22/21 07:53 Pulse 62 11/22/21 08:01 Resp 16 11/22/21 08:01 BP 163/63 H 11/22/21 08:01 Pulse Ox 96 11/22/21 08:01 O2 Del Method 11/22/21 08:01 BMI result Body Mass Index 31.1 Const: General: comfortable and no acute distress Orientation/consciousness: patient oriented x3 HEENT: Other: Unremarkable Head: Yes normal to inspection Neck: Neck: Yes normal visual inspection Chest: Chest palpation & inspection: normal inspection of the chest Resp: Auscultation: clear to auscultation bilaterally Cardio: Palpation: normal PMI Heart sounds: S1 normal heart sound present, S2 normal heart sound present, no gallops, no murmurs and no rubs GI: Palpation (GI): Soft to palpation Back/Spine/Pelvis: Other: unremarkable Skin: General skin exam: no rashes or lesions noted Neuro: General: patient oriented x3 Extrem: General: Yes normal to inspection Psych: Mental Status: mental status grossly normal Objective Labs and Meds Result diagrams: 11/22/21 08:10 11/22/21 08:10 Lab results: Laboratory Results - last 24 hr 11/22/21 11/22/21 11/22/21 08:10 08:10 08:10 WBC 8.1 RBC 4.70 Hgb 13.9 L Hct 40.6 L MCV 86.4 MCH 29.6 MCHC 34.2 RDW 14.7 Plt Count 291 MPV 9.4 Immature Gran % (Auto) 0.9 H Neut % (Auto) 60.4 Lymph % (Auto) 25.0 [place] % (Auto) 8.4 Eos % (Auto) 4.6 H Baso % (Auto) 0.7 Lymph # (Auto) 2.0 [place] # (Auto) 0.7 Eos # (Auto) 0.4 Baso # (Auto) 0.1 Abs Immat Gran (auto) 0.07 H Absolute Neuts (auto) 4.9 Absolute Nucleated RBC 0.000 Nucleated RBC % (auto) 0.0 PT 10.6 INR 0.9 APTT 28.0 D-Dimer High Sensitivty Sodium 142 Potassium 4.6 Chloride 109 H Carbon Dioxide 24 Anion Gap 14 BUN 24 H Creatinine 1.05 Estim Creat Clear Calc 58.1 Estimated GFR > 60 Random Glucose 131 H Calcium 8.9 Magnesium 2.0 Total Bilirubin 0.6 AST 17 ALT 18 Alkaline Phosphatase 66 Troponin I High Sens Total Protein 6.7 Albumin 4.1 COVID-19 (VEE) COVID-19 Clin Com 11/22/21 11/22/21 11/22/21 08:10 08:10 08:49 WBC RBC Hgb Hct MCV MCH MCHC RDW Plt Count MPV Immature Gran % (Auto) Neut % (Auto) Lymph % (Auto) [place] % (Auto) Eos % (Auto) Baso % (Auto) Lymph # (Auto) [place] # (Auto) Eos # (Auto) Baso # (Auto) Abs Immat Gran (auto) Absolute Neuts (auto) Absolute Nucleated RBC Nucleated RBC % (auto) PT INR APTT D-Dimer High Sensitivty < 150 Sodium Potassium Chloride Carbon Dioxide Anion Gap BUN Creatinine Estim Creat Clear Calc Estimated GFR Random Glucose Calcium Magnesium Total Bilirubin AST ALT Alkaline Phosphatase Troponin I High Sens 60.1 H Total Protein Albumin COVID-19 (VEE) Negative COVID-19 Clin Com See Note 11/22/21 09:19 WBC RBC Hgb Hct MCV MCH MCHC RDW Plt Count MPV Immature Gran % (Auto) Neut % (Auto) Lymph % (Auto) [place] % (Auto) Eos % (Auto) Baso % (Auto) Lymph # (Auto) [place] # (Auto) Eos # (Auto) Baso # (Auto) Abs Immat Gran (auto) Absolute Neuts (auto) Absolute Nucleated RBC Nucleated RBC % (auto) PT INR APTT D-Dimer High Sensitivty Sodium Potassium Chloride Carbon Dioxide Anion Gap BUN Creatinine Estim Creat Clear Calc Estimated GFR Random Glucose Calcium Magnesium Total Bilirubin AST ALT Alkaline Phosphatase Troponin I High Sens 59.4 H Total Protein Albumin COVID-19 (VEE) COVID-19 Clin Com ECG Interpretation: EKG with sinus bradycardia, 52/Min; leftward axis; nonspecific ST-T changes. Imaging Radiologist's impression: Impressions Chest X-Ray 11/22/21 08:35 IMPRESSION: Hypoexpanded lungs without acute process. Assessment and Plan (1) Non-ST elevation [place] (NSTEMI): Status: Acute Plan High sensitivity troponins are 60.1 followed by 59.4. Symptoms are concerning for non ST elevation myocardial infarction. Currently, he is pain free. Will treat as NSTEMI. IV heparin drip. Aspirin. As he already has sinus bradycardia, no need for beta-blockers. Otherwise pain free. Transfer to [facility] for cardiac catheterization. Discussed with ER physician. Procedures Date of Service Date of Service: 11/22/21
[2021-11-22 10:13] VITALS: BMI 31.7
[2021-11-22 10:16] VITALS: BP 136/57; PULSE 56; RESP 14; O2SAT 97
[2021-11-22 10:18] LABS: B Type Natriuretic Peptide 44 pg/mL (<100)
--- NOTE | 2021-11-22 10:26 | PC.NURSE ---
@1020 Jonas req a call to [facility] transfer line. I called right away and spoke to Sondra. Sondra reg to speak to the provider. Jonas picked up right away.
[2021-11-22] MEDS: Heparin Sodium,Porcine 5,000 UNIT/ML VIAL 4000 UNIT IVPUSH (10:52)
[2021-11-22] MEDS: Heparin Sodium,Porcine/1/2NS 25,000 UNIT/250 ML IV.SOLN 10 UNIT IVCONT (10:52)
[2021-11-22 10:55] VITALS: BP 135/56; PULSE 56
[2021-11-22] MEDS: Nitroglycerin 0.4 MG TAB.SUBL SUBLINGUAL (10:55)
[2021-11-22 11:15] LABS: Hematocrit 39.9 % (42.0-52.0); Hemoglobin 13.9 g/dl (14.0-18.0); Mean Corpuscular HGB Conc 34.8 g/dl (31.0-36.0); Mean Corpuscular Hemoglobin 29.9 pg (27.0-33.0); Mean Corpuscular Volume 85.8 fL (80.0-98.0); Mean Platelet Volume 9.2 fL (9.4-12.4); Platelet Count 297 X10*3/uL (160-400); Red Blood Count 4.65 X10*6/uL (4.60-5.80); Red Cell Distribution Width 14.6 % (11.0-16.0); White Blood Count 10.2 X10*3/uL (4.8-10.8)
[2021-11-22 11:22] LABS: Prothrombin Time 11.2 SEC (10.0-13.1)
[2021-11-22 11:44] LABS: PTT Heparin Drip > 200.0 SEC (53-77.9)
--- NOTE | 2021-11-22 12:15 | PC.NURSE ---
@ 1210 SPOKE TO GILL AT [facility] TRANSFER LINE AND WAS GIVEN A BED ASSIGNMENT [employer] [phone]. ACCEPTING PHYSICIAN IS KEVYN. NURSE TO NURSE [phone].
[2021-11-22 12:26] VITALS: BP 127/55; PULSE 60; RESP 14; O2SAT 96
--- NOTE | 2021-11-22 13:00 | PC.NURSE ---
@ 1252pm [facility] called for [facility] transport of this pt zaid answers and says she may have to pass this off and would get back to us with more info shortly @ 1259pm return call from zaid of [facility] saying that she was unable to pass this transport and that their [facility] crew should be available in about a half hour
== END 2021-11-22 13:53 | disposition short-term general hospital (02) ==
PROVIDERS: Emergency Provider Student in an Organized Health Care Education/Training Program; PCP Internal Medicine
DX: I21.4 Non-ST elevation (NSTEMI) myocardial infarction (principal); Z20.822 Contact with and (suspected) exposure to COVID-19; E78.9 Disorder of lipoprotein metabolism, unspecified; I10 Essential (primary) hypertension; F17.200 Nicotine dependence, unspecified, uncomplicated; E66.9 Obesity, unspecified; Z68.31 Body mass index [BMI] 31.0-31.9, adult
CPT/HCPCS: 36415; 71045; 80053; 83735; 83880; 84484; 85025; 85027; 85379; 85610; 85730; 87635; 93005; 96374; 99285

== ENCOUNTER 2022-04-14 09:35 | Outpatient (REF) | payer MEDICARE, SELFPAY ==
[2022-04-14 11:28] LABS: MANUAL DIFF FLAG NO
[2022-04-14 11:34] LABS: Basophils Absolute Auto 0.1 X10*3/uL (0.0-0.2); Basophils Percent Auto 0.5 % (0-2); Eosinophils Absolute Auto 0.5 X10*3/uL (0.0-0.4); Eosinophils Percent Auto 5.4 % (0-4); Hematocrit 42.3 % (42.0-52.0); Hemoglobin 14.2 g/dl (14.0-18.0); Imm Gran Abs Auto 0.03 X10*3/uL (0.00-0.03); Imm Gran Pct Auto 0.3 % (0.0-0.4); Lymphocytes Absolute Auto 2.1 X10*3/uL (1.2-4.9); Lymphocytes Percent Auto 21.9 % (20-40); Mean Corpuscular HGB Conc 33.6 g/dl (31.0-36.0); Mean Corpuscular Hemoglobin 29.2 pg (27.0-33.0); Mean Corpuscular Volume 86.9 fL (80.0-98.0); Monocytes Absolute Auto 0.9 X10*3/uL (0.1-1.2); Monocytes Percent Auto 8.9 % (2-11); Platelet Count 274 X10*3/uL (160-400); Red Blood Count 4.87 X10*6/uL (4.60-5.80); Red Cell Distribution Width 15.3 % (11.0-16.0); White Blood Count 9.5 X10*3/uL (4.8-10.8)
[2022-04-14 13:56] LABS: Alanine Aminotransferase 22 U/L (0-40); Albumin Level 4.4 g/dL (3.5-5.0); Alkaline Phosphatase 80 U/L (39-117); Anion Gap 13 (12-20); Aspartate Amino Transferase 20 U/L (5-37); Bilirubin Total 0.6 mg/dL (0.0-1.0); Blood Urea Nitrogen 19 mg/dL (9-16); Calcium 9.3 mg/dL (8.4-10.2); Carbon Dioxide 25 mmol/L (22-29); Chloride 106 mmol/L (96-108); Cholesterol 133 mg/dL; Estimated Glomerular Filt Rate > 60; Glucose Fasting 112 mg/dL (60-99); HDL Cholesterol 46 mg/dL; LDL Cholesterol Calculated 55 mg/dl; Potassium 4.4 mmol/L (3.3-5.1); Sodium 140 mmol/L (135-145); Total Protein 6.9 g/dL (6.5-8.0); Triglycerides 162 mg/dL
== END 2022-04-14 09:36 | disposition home or self-care (01) ==
LOC: HO.HMGCLDS 09:35
PROVIDERS: PCP Internal Medicine; Visit Provider Internal Medicine
DX: I10 Essential (primary) hypertension (principal); E78.9 Disorder of lipoprotein metabolism, unspecified; G43.909 Migraine, unspecified, not intractable, without status migrainosus; N32.9 Bladder disorder, unspecified; E66.09 Other obesity due to excess calories; H91.93 Unspecified hearing loss, bilateral; I25.10 Atherosclerotic heart disease of native coronary artery without angina pectoris; Z95.9 Presence of cardiac and vascular implant and graft, unspecified
CPT/HCPCS: 36415; 80053; 80061; 85025

== ENCOUNTER 2022-10-09 08:43 | Outpatient (REF) | payer MEDICARE, SELFPAY ==
[2022-10-09 11:24] LABS: MANUAL DIFF FLAG NO
[2022-10-09 11:39] LABS: Basophils Absolute Auto 0.1 X10*3/uL (0.0-0.2); Basophils Percent Auto 0.8 % (0-2); Eosinophils Absolute Auto 0.7 X10*3/uL (0.0-0.4); Eosinophils Percent Auto 7.7 % (0-4); Hemoglobin 13.3 g/dl (14.0-18.0); Imm Gran Abs Auto 0.04 X10*3/uL (0.00-0.03); Imm Gran Pct Auto 0.5 % (0.0-0.4); Lymphocytes Percent Auto 23.2 % (20-40); Mean Corpuscular HGB Conc 34.1 g/dl (31.0-36.0); Mean Corpuscular Hemoglobin 29.8 pg (27.0-33.0); Mean Corpuscular Volume 87.4 fL (80.0-98.0); Mean Platelet Volume 9.8 fL (9.4-12.4); Monocytes Absolute Auto 0.9 X10*3/uL (0.1-1.2); Monocytes Percent Auto 9.8 % (2-11); Platelet Count 248 X10*3/uL (160-400); Red Blood Count 4.46 X10*6/uL (4.60-5.80); Red Cell Distribution Width 15.5 % (11.0-16.0); White Blood Count 8.7 X10*3/uL (4.8-10.8)
[2022-10-09 11:51] LABS: Alanine Aminotransferase 14 U/L (0-40); Albumin Level 3.9 g/dL (3.5-5.0); Alkaline Phosphatase 75 U/L (39-117); Anion Gap 13 (12-20); Aspartate Amino Transferase 16 U/L (5-37); Bilirubin Total 0.4 mg/dL (0.0-1.0); Blood Urea Nitrogen 21 mg/dL (9-16); Calcium 9.5 mg/dL (8.4-10.2); Carbon Dioxide 23 mmol/L (22-29); Chloride 106 mmol/L (96-108); Estimated Glomerular Filt Rate 43; Glucose Random 115 mg/dL (60-115); Potassium 4.2 mmol/L (3.3-5.1); Sodium 138 mmol/L (135-145); Total Protein 6.7 g/dL (6.5-8.0)
== END 2022-10-09 08:44 | disposition home or self-care (01) ==
LOC: HO.HMGCLDS 08:43
PROVIDERS: PCP Internal Medicine; Visit Provider Internal Medicine
DX: E78.9 Disorder of lipoprotein metabolism, unspecified (principal); G43.909 Migraine, unspecified, not intractable, without status migrainosus; I10 Essential (primary) hypertension; I25.10 Atherosclerotic heart disease of native coronary artery without angina pectoris; N32.9 Bladder disorder, unspecified
CPT/HCPCS: 36415; 80053; 85025

== ENCOUNTER 2022-10-12 10:01 | Outpatient (REF) | payer MEDICARE, SELFPAY ==
[2022-10-12 11:39] LABS: Blood Urea Nitrogen 19 mg/dL (9-16); Estimated Glomerular Filt Rate 43
== END 2022-10-12 10:02 | disposition home or self-care (01) ==
LOC: HO.HMGCLDS 10:01
PROVIDERS: PCP Internal Medicine; Visit Provider Internal Medicine
DX: R79.89 Other specified abnormal findings of blood chemistry (principal)
CPT/HCPCS: 36415; 82565; 84520

== ENCOUNTER 2023-04-06 09:06 | Outpatient (AMB) | payer MEDICARE, OTHER, SELFPAY ==
[2023-04-06 09:08] VITALS: BP 120/60; PULSE 71; O2SAT 95; BMI 31.6
--- NOTE | 2023-04-06 09:08 | A.OFFPC_ITS ---
Vital Signs 04/06/23 09:08 Height 5 ft 5 in Weight 190 lb BMI 31.6 BP 120/60 Blood Pressure Location Lt brachial Position Sitting Pulse 71 Pulse Source Pulse Oximeter Pulse Oximetry (%) 95 Oxygen Delivery Method Room Air Intake Visit Reasons: LT Eye cataract~ Allergies sertraline Adverse Reaction (Unknown, Verified 04/06/23 09:11) facial numbness simvastatin Adverse Reaction (Unknown, Verified 04/06/23 09:11) sore muscles Medication List - Last Reconciled 04/06/23 by Jessica Clark MD amitriptyline 10 mg PO BEDTIME 90 days aspirin (Adult Aspirin Regimen) 81 mg PO DAILY lisinopril 20 mg PO DAILY omega-3 fatty acids-fish oil 360-1,200 mg (Fish Oil) 1 cap PO DAILY solifenacin 10 mg PO DAILY Tobacco use date assessed: 04/06/23 Fall risk assessment: No Falls in past year Last assessed Fall Risk: 04/06/23 Dental Screening Dental Screen Date: 04/06/23 Did you have a dental visit in the last 12 months?: No Did you have a dental problem in the last 6 months where you did not have access to dental care?: No Was dental information given to patient?: No HPI LT Eye cataract~ HPI Details Patient is a 77-year-old gentleman came in today for preop visit for cataract surgery left eye April 26 and right eye June 03 at [facility] by Dr. Bryan in [place] Patient is doing well he is in his usual state of health He does go to a [facility] for chronic nephropathy Last set of lab was in September his creatinine was 1.5, he will be having new set of lab today. Other than that patient is doing well His blood pressure is stable He is seeing urologist because he has a history of bladder cancer. Which is in remission. Patient is stable for cataract surgery [facility] Medical History Hypertension, essential Lipid disorder Migraine headache Surgical History S/P right coronary artery (RCA) stent placement H/O prostatectomy History of umbilical hernia repair Hx of cholecystectomy Family History Father Skin cancer Lymphoma Mother No problems noted. Daughter Migraine Maternal Grandfather No problems noted. Maternal Grandmother No problems noted. Paternal Grandfather No problems noted. Paternal Grandmother No problems noted. Brother No problems noted. Son No problems noted. Son No problems noted. Social History Housing: House Patient Tobacco Use Status: Former Tobacco user Tobacco use type: Cigar e-Cigarette/Vaping Use: Never Used Current occupational status: retired Cognitive needs: No Hearing needs: Yes Vision needs: Yes Questionnaire PHQ-9 Over the last 2 weeks, how often have you been bothered by any of the following problems? 1. Little interest or pleasure in doing things: not at all 2. Feeling down, depressed, or hopeless: not at all 3. Trouble falling or staying asleep, or sleeping too much: several days 4. Feeling tired or having little energy: not at all 5. Poor appetite or overeating: not at all 6. Feeling bad about yourself - or that you are a failure or have let yourself or your family down: not at all 7. Trouble concentrating on things, such as reading the newspaper or watching television: not at all 8. Moving or speaking so slowly that other people could have noticed. Or the opposite - being so fidgety or restless that you have been moving around a lot more than usual: not at all 9. Thoughts that you would be better off or of hurting yourself in some way: not at all Total score: 1 Depression Screening Interpretation: Negative Depression Screening Done: Yes 80768 - PHQ-9 Billing: Yes Source: Developed by Drs. Stu Hurt, Jaquelin Tse, Dhiraj Bar and colleagues, with an educational nilo from [employer]. Thrive Questionnaire Date Thrive assessed: 01/07/21 MAGY-7 AMB Questionnaire MAGY-7 Date MAGY - 7 assessed: 05/13/21 Source: Developed by Drs. Stu Hurt, Jaquelin Tse, Dhiraj Bar and colleagues, with an educational nilo from [employer]. Review of Systems Const Denies chills and Denies fever(s) ENT Denies epistaxis and Denies nasal discharge Card Denies chest pain Resp Denies chest congestion, Denies cough and Denies hemoptysis GI Denies diarrhea and Denies nausea Skin/Breast Denies rash Neuro Reports no additional complaints Psych Reports no additional complaints Endo Reports no additional complaints Physical exam (Primary Care) Vital Signs: Last Vital Signs Pulse 71 04/06/23 09:08 BP 120/60 04/06/23 09:08 Pulse Ox 95 04/06/23 09:08 Oxygen Delivery Method Room Air 04/06/23 09:08 BMI result Body Mass Index 31.6 Tobacco/Smoking Status: Tobacco use Status Tobacco use date assessed 04/06/23 04/06/23 09:17 Patient Tobacco Use Status Former Tobacco user 04/06/23 09:17 Tobacco use type Cigar 04/06/23 09:17 e-Cigarette/Vaping Use Never Used 04/06/23 09:17 Depression Screening Interpretation: Negative Thrive Assessment: Date of Thrive Assessment Date Thrive assessed 01/07/21 04/06/23 09:17 Const General: cooperative, comfortable and no acute distress Orientation/consciousness: patient oriented x3 HENMT Head: Yes normocephalic Eyes General: appearance normal, both eyes and all related structures Neck Neck: Yes supple Resp Effort & Inspection: normal respiratory effort, no cough and no stridor Cardio Rhythm: regular rhythm Heart sounds: S1 normal heart sound present and S2 normal heart sound present Skin General skin exam: turgor normal Neuro General: patient oriented x3, tone normal and moves all extremities Extrem Right lower extremity: no edema Left lower extremity: no edema Assessment and Plan Assessment & Plan (1) Pre-op evaluation: Code(s): Z01.818 - Encounter for other preprocedural examination (2) Cataract: Code(s): H26.9 - Unspecified cataract Qualifiers: Cataract type: other Laterality: bilateral Qualified Code(s): H26.8 - Other specified cataract (3) Nephropathy: Code(s): N28.9 - Disorder of kidney and ureter, unspecified (4) Elevated serum creatinine: Code(s): R79.89 - Other specified abnormal findings of blood chemistry (5) Hypertension, essential: Code(s): I10 - Essential (primary) hypertension (6) Lipid disorder: Code(s): E78.9 - Disorder of lipoprotein metabolism, unspecified (7) Obesity due to excess calories: Code(s): E66.09 - Other obesity due to excess calories Qualifiers: Body mass index: BMI 31.0-31.9 Obesity classification: adult class 1 (BMI 30 - 34.9) Serious obesity comorbidity presence: with serious comorbidity Qualified Code(s): E66.09 - Other obesity due to excess calories; Z68.31 - Body mass index [BMI] 31.0-31.9, adult (8) History of bladder cancer: Code(s): Z85.51 - Personal history of malignant neoplasm of bladder Plan Patient is a 77-year-old gentleman came in today for preop visit for cataract surgery left eye April 26 and right eye June 03 at [facility] by Dr. Bryan in [place] Patient is doing well he is in his usual state of health He does go to a [facility] demonstr[facility] for chronic nephropathy Last set of lab was in September his creatinine was 1.5, he will be having new set of lab today. Other than that patient is doing well His blood pressure is stable He is seeing urologist because he has a history of bladder cancer. Which is in remission. his BMI is elevated, patient is trying to lose weight Patient is stable for cataract surgery Orders: Orders Complete Blood Count Auto Diff Today E66.09 - Other obesity due to excess calories, E78.9 - Disorder of lipoprotein metabolism, unspecified, H26.9 - Unspecified cataract, I10 - Essential (primary) hypertension, N28.9 - Disorder of kidney and ureter, unspecified, R79.89 - Other specified abnormal findings of blood chemistry, Z01.818 - Encounter for other preprocedural examination, Z85.51 - Personal history of malignant neoplasm of bladder Comprehensive Met. Panel Today E66.09 - Other obesity due to excess calories, E78.9 - Disorder of lipoprotein metabolism, unspecified, H26.9 - Unspecified cataract, I10 - Essential (primary) hypertension, N28.9 - Disorder of kidney and ureter, unspecified, R79.89 - Other specified abnormal findings of blood chemistry, Z01.818 - Encounter for other preprocedural examination, Z85.51 - Personal history of malignant neoplasm of bladder Coding Level of Care Code Est Pt Level 4 (70721) Diagnoses Pre-op evaluation Z.818 Other cataract of both eyes H26.8 Cataract type: other Laterality: bilateral Nephropathy N28.9 Elevated serum creatinine R79.89 Hypertension, essential I10 Lipid disorder E78.9 Class 1 obesity due to excess calories with serious comorbidity and body mass index (BMI) of 31.0 to 31.9 in adult E66.09; Z68.31 Body mass index: BMI 31.0-31.9 Obesity classification: adult class 1 (BMI 30 - 34.9) Serious obesity comorbidity presence: with serious comorbidity History of bladder cancer Z85.51
== END 2023-04-06 12:37 | disposition home or self-care (01) ==
PROVIDERS: PCP Internal Medicine; Visit Provider Internal Medicine
DX: Z01.818 Encounter for other preprocedural examination (principal); H26.8 Other specified cataract; N28.9 Disorder of kidney and ureter, unspecified; R79.89 Other specified abnormal findings of blood chemistry; I10 Essential (primary) hypertension; E78.9 Disorder of lipoprotein metabolism, unspecified; E66.09 Other obesity due to excess calories; Z68.31 Body mass index [BMI] 31.0-31.9, adult; Z85.51 Personal history of malignant neoplasm of bladder
CPT/HCPCS: 99214

== ENCOUNTER 2023-04-06 09:38 | Outpatient (REF) | payer MEDICARE, OTHER, SELFPAY ==
[2023-04-06 11:19] LABS: MANUAL DIFF FLAG NO
[2023-04-06 11:20] LABS: Basophils Absolute Auto 0.1 X10*3/uL (0.0-0.2); Basophils Percent Auto 0.7 % (0-2); Eosinophils Percent Auto 10.1 % (0-4); Hemoglobin 13.9 g/dl (14.0-18.0); Imm Gran Abs Auto 0.04 X10*3/uL (0.00-0.03); Imm Gran Pct Auto 0.4 % (0.0-0.4); Lymphocytes Percent Auto 31.1 % (20-40); Mean Corpuscular HGB Conc 33.9 g/dl (31.0-36.0); Mean Corpuscular Hemoglobin 29.3 pg (27.0-33.0); Mean Corpuscular Volume 86.3 fL (80.0-98.0); Mean Platelet Volume 9.7 fL (9.4-12.4); Monocytes Absolute Auto 0.8 X10*3/uL (0.1-1.2); Monocytes Percent Auto 8.5 % (2-11); Neutrophils Absolute Auto 4.7 x10*3/uL (2.0-8.3); Neutrophils Percent Auto 49.2 % (45-73); Platelet Count 317 X10*3/uL (160-400); Red Blood Count 4.75 X10*6/uL (4.60-5.80); White Blood Count 9.6 X10*3/uL (4.8-10.8)
[2023-04-06 12:08] LABS: Alanine Aminotransferase 13 U/L (0-40); Albumin Level 4.1 g/dL (3.5-5.0); Alkaline Phosphatase 86 U/L (39-117); Anion Gap 12 (12-20); Aspartate Amino Transferase 15 U/L (5-37); Bilirubin Total 0.4 mg/dL (0.0-1.0); Blood Urea Nitrogen 23 mg/dL (9-16); Calcium 9.1 mg/dL (8.4-10.2); Carbon Dioxide 26 mmol/L (22-29); Chloride 105 mmol/L (96-108); Estimated Glomerular Filt Rate > 60; Glucose Random 109 mg/dL (60-115); Potassium 4.1 mmol/L (3.3-5.1); Sodium 139 mmol/L (135-145); Total Protein 6.3 g/dL (6.5-8.0)
== END 2023-04-06 09:39 | disposition home or self-care (01) ==
LOC: HO.HMGCLDS 09:38
PROVIDERS: PCP Internal Medicine; Visit Provider Internal Medicine
DX: Z01.818 Encounter for other preprocedural examination (principal); H26.9 Unspecified cataract; N28.9 Disorder of kidney and ureter, unspecified; R79.89 Other specified abnormal findings of blood chemistry; I10 Essential (primary) hypertension; E78.9 Disorder of lipoprotein metabolism, unspecified; E66.09 Other obesity due to excess calories; Z85.51 Personal history of malignant neoplasm of bladder
CPT/HCPCS: 36415; 80053; 85025

== ENCOUNTER 2023-07-08 08:44 | Outpatient (AMB) | payer MEDICARE, OTHER, SELFPAY ==
--- NOTE | 2023-07-08 08:42 | A.OFFPC_ITS ---
Intake Visit Reasons: Medication Rq follow up [phone] Intake Note: [phone] Allergies sertraline Adverse Reaction (Unknown, Verified 07/08/23 08:43) facial numbness simvastatin Adverse Reaction (Unknown, Verified 07/08/23 08:43) sore muscles Medication List - Last Reconciled 07/08/23 by Jessica Clark MD amitriptyline 10 mg PO BEDTIME 90 days aspirin (Adult Aspirin Regimen) 81 mg PO DAILY lisinopril 20 mg PO DAILY omega-3 fatty acids-fish oil 360-1,200 mg (Fish Oil) 1 cap PO DAILY solifenacin 10 mg PO DAILY Tobacco use date assessed: 07/08/23 Last assessed Fall Risk: 07/08/23 Dental Screening Dental Screen Date: 07/08/23 Did you have a dental visit in the last 12 months?: No Did you have a dental problem in the last 6 months where you did not have access to dental care?: No Was dental information given to patient?: Patient declined HPI Medication Rq follow up [phone] HPI Details Patient is 78-year-old gentleman with history of bladder cancer doing well Blood pressure is controlled, he is taking lisinopril 20 mg Readings are around 120 systolic patient is monitoring it at home. Migraine headaches are stable with amitriptyline 10 mg patient is requesting a refill, sent Labs were done in March reviewed again New set of lab order placed to be done before next visit early October. Patient have a history of coronary artery disease, there is no chest pain no shortness of breath no swelling of ankles His BMI is elevated patient is trying to lose weight. PENDING SALE TO [facility] Medical History Hypertension, essential Lipid disorder Migraine headache Surgical History S/P right coronary artery (RCA) stent placement H/O prostatectomy History of umbilical hernia repair Hx of cholecystectomy Family History Father Skin cancer Lymphoma Mother No problems noted. Daughter Migraine Maternal Grandfather No problems noted. Maternal Grandmother No problems noted. Paternal Grandfather No problems noted. Paternal Grandmother No problems noted. Brother No problems noted. Son No problems noted. Son No problems noted. Social History Housing: House Patient Tobacco Use Status: Former Tobacco user Tobacco use type: Cigar e-Cigarette/Vaping Use: Never Used Current occupational status: retired Cognitive needs: No Hearing needs: Yes Vision needs: Yes Questionnaire Thrive Questionnaire Date Thrive assessed: 01/07/21 AUDIT C Alcohol Use Questionnaire (AUDIT-C) 1. How often do you have a drink containing alcohol?: Never 3. How often do you have six or more drinks on one occasion?: Never Total Score: 0 MAGY-7 AMB Questionnaire MAGY-7 Date MAGY - 7 assessed: 05/13/21 Source: Developed by Drs. Stu Hurt, Jaquelin Tse, Dhiraj Bar and colleagues, with an educational nilo from [employer]. Review of Systems Const Denies chills and Denies fever(s) ENT Denies epistaxis and Denies nasal discharge Card Denies chest pain Resp Denies chest congestion, Denies cough and Denies hemoptysis GI Denies diarrhea and Denies nausea Skin/Breast Denies rash Neuro Reports no additional complaints Psych Reports no additional complaints Endo Reports no additional complaints Physical exam (Primary Care) Tobacco/Smoking Status: Tobacco use Status Tobacco use date assessed 07/08/23 07/08/23 08:44 Patient Tobacco Use Status Former Tobacco user 07/08/23 08:44 Tobacco use type Cigar 07/08/23 08:44 e-Cigarette/Vaping Use Never Used 07/08/23 08:44 Thrive Assessment: Date of Thrive Assessment Date Thrive assessed 01/07/21 07/08/23 08:44 Telehealth Telehealth Location of provider rendering services: practice address Location of patient: address on file Patient Identification confirmed using: Name, : Yes Telehealth method: voice only Patient verbally consented to treatment: Yes Patient verbally consented to billing insurance company: Yes Patient informed of any privacy concerns related to visit: Yes Assessment and Plan Assessment & Plan (1) Hypertension, essential: Code(s): I10 - Essential (primary) hypertension (2) Migraine headache: Code(s): G43.909 - Migraine, unspecified, not intractable, without status migrainosus Qualifiers: Intractability: intractable Migraine type: unspecified Status migrainosus presence: without status migrainosus Qualified Code(s): G43.919 - Migraine, unspecified, intractable, without status migrainosus (3) Lipid disorder: Code(s): E78.9 - Disorder of lipoprotein metabolism, unspecified (4) Cervicalgia: Code(s): M54.2 - Cervicalgia (5) Coronary artery disease: Code(s): I25.10 - Atherosclerotic heart disease of [place] coronary artery without angina pectoris Qualifiers: Associated angina: without angina Coronary Disease-Associated Artery/Lesion type: [place] artery [place] vs. transplanted heart: [place] heart Qualified Code(s): I25.10 - Atherosclerotic heart disease of [place] coronary artery without angina pectoris (6) Nephropathy: Code(s): N28.9 - Disorder of kidney and ureter, unspecified (7) History of bladder cancer: Code(s): Z85.51 - Personal history of malignant neoplasm of bladder Plan Patient is 78-year-old gentleman with history of bladder cancer doing well Blood pressure is controlled, he is taking lisinopril 20 mg Readings are around 120 systolic patient is monitoring it at home. Migraine headaches are stable with amitriptyline 10 mg patient is requesting a refill, sent Labs were done in March reviewed again New set of lab order placed to be done before next visit early October. Patient have a history of coronary artery disease, there is no chest pain no shortness of breath no swelling of ankles His BMI is elevated patient is trying to lose weight. His creatinine leveled does fluctuate, last time it was within normal range Neck pain is stable Orders: Orders Complete Blood Count Auto Diff Today E78.9 - Disorder of lipoprotein metabolism, unspecified, G43.909 - Migraine, unspecified, not intractable, without status migrainosus, I10 - Essential (primary) hypertension, I25.10 - Atherosclerotic heart disease of [place] coronary artery without angina pectoris, M54.2 - Cervicalgia, N28.9 - Disorder of kidney and ureter, unspecified, Z85.51 - Personal history of malignant neoplasm of bladder LDL Cholesterol Direct Today E78.9 - Disorder of lipoprotein metabolism, unspecified, G43.909 - Migraine, unspecified, not intractable, without status migrainosus, I10 - Essential (primary) hypertension, I25.10 - Atherosclerotic heart disease of [place] coronary artery without angina pectoris, M54.2 - Cervicalgia, N28.9 - Disorder of kidney and ureter, unspecified, Z85.51 - Personal history of malignant neoplasm of bladder Prostate Specific Antigen Today E78.9 - Disorder of lipoprotein metabolism, unspecified, G43.909 - Migraine, unspecified, not intractable, without status migrainosus, I10 - Essential (primary) hypertension, I25.10 - Atherosclerotic heart disease of [place] coronary artery without angina pectoris, M54.2 - Cervicalgia, N28.9 - Disorder of kidney and ureter, unspecified, Z85.51 - Personal history of malignant neoplasm of bladder Comprehensive Met. Panel Today E78.9 - Disorder of lipoprotein metabolism, unspecified, G43.909 - Migraine, unspecified, not intractable, without status migrainosus, I10 - Essential (primary) hypertension, I25.10 - Atherosclerotic heart disease of [place] coronary artery without angina pectoris, M54.2 - Cervicalgia, N28.9 - Disorder of kidney and ureter, unspecified, Z85.51 - Personal history of malignant neoplasm of bladder Medications: Refilled amitriptyline 10 mg PO BEDTIME 90 tabs 0RF 90 days Coding Level of Care Code Tele Est Pt Level 3 (59806) Diagnoses Hypertension, essential I10 Intractable migraine without status migrainosus, unspecified migraine type G43.919 Intractability: intractable Migraine type: unspecified Status migrainosus presence: without status migrainosus Lipid disorder E78.9 Cervicalgia M54.2 Coronary artery disease involving [place] coronary artery of [place] heart without angina pectoris I25.10 Associated angina: without angina Coronary Disease-Associated Artery/Lesion type: [place] artery [place] vs. transplanted heart: [place] heart Nephropathy N28.9 History of bladder cancer Z85.51 Time Spent (min) 20
== END 2023-07-08 15:13 | disposition home or self-care (01) ==
LOC: HO.HMGC 08:44
PROVIDERS: PCP Internal Medicine; Visit Provider Internal Medicine
DX: I10 Essential (primary) hypertension (principal); G43.919 Migraine, unspecified, intractable, without status migrainosus; E78.9 Disorder of lipoprotein metabolism, unspecified; M54.2 Cervicalgia; I25.10 Atherosclerotic heart disease of native coronary artery without angina pectoris; N28.9 Disorder of kidney and ureter, unspecified; Z85.51 Personal history of malignant neoplasm of bladder
CPT/HCPCS: 99442

== ENCOUNTER 2023-12-17 13:30 | Outpatient (AMB) | payer MEDICARE, OTHER, SELFPAY ==
[2023-12-17 13:31] VITALS: BP 130/60; PULSE 71; O2SAT 96; BMI 31.9
--- NOTE | 2023-12-17 13:31 | MHC.PC.OV ---
Vital Signs 12/17/23 13:31 Height 5 ft 5 in Weight 192 lb BMI 31.9 BP 130/60 Blood Pressure Location Lt brachial Position Sitting Pulse 71 Pulse Source Pulse Oximeter Pulse Oximetry (%) 96 Oxygen Delivery Method Room Air Intake Visit Reasons: Urgent care f/u Rib fracture Allergies sertraline Adverse Reaction (Unknown, Verified 12/17/23 13:31) facial numbness simvastatin Adverse Reaction (Unknown, Verified 12/17/23 13:31) sore muscles Medication List - Last Reconciled 12/17/23 by Jessica Clark MD amitriptyline 10 mg PO BEDTIME 90 days aspirin (Adult Aspirin Regimen) 81 mg PO DAILY atorvastatin 40 mg PO DAILY lisinopril 20 mg PO DAILY omega-3 fatty acids-fish oil 360-1,200 mg (Fish Oil) 1 cap PO DAILY prednisolone 5 mg PO DAILY solifenacin 10 mg PO DAILY Tobacco use date assessed: 12/17/23 Fall risk assessment: No Falls in past year Last assessed Fall Risk: 12/17/23 Dental Screening Dental Screen Date: 12/17/23 Did you have a dental visit in the last 12 months?: No Did you have a dental problem in the last 6 months where you did not have access to dental care?: No Was dental information given to patient?: No HPI Urgent care f/u Rib fracture HPI Details Patient is 78-year-old gentleman came in today to be evaluated for rib fracture and abnormality seen in neck Patient presented to urgent Care on of this month with a chief complaint of pain right sided chest for the past 2 weeks. He verbalize that pain is worse when he is laying down He had an injury on 28 of November due to heavy lifting Pain was sharp ache and worsened with movement X-ray of chest showed Nondisplaced fracture in the anterior 6 rib There is mass effect on the trachea causing deviation towards the right Soft tissue thickening along the right paratracheal stripe CT scan could be obtained for further evaluation Patient came in today for follow-up on that Patient has seen design cell engineer after that who has already ordered CT scan with contrast Today on examination I feel a lump close to his thyroid gland left side I have ordered some labs for him and gave him a printout When he will go for his kidney functions before CT scan patient is to have the labs I ordered as well Further management after the report Patient is asymptomatic, there is no problem swallowing or talking And right-sided rib pain is getting better [facility] Medical History Hypertension, essential Lipid disorder Migraine headache Surgical History S/P right coronary artery (RCA) stent placement H/O prostatectomy History of umbilical hernia repair Hx of cholecystectomy Family History Father Skin cancer Lymphoma Mother No problems noted. Daughter Migraine Maternal Grandfather No problems noted. Maternal Grandmother No problems noted. Paternal Grandfather No problems noted. Paternal Grandmother No problems noted. Brother No problems noted. Son No problems noted. Son No problems noted. Social History Housing: House Patient Tobacco Use Status: Former Tobacco user Tobacco use type: Cigar e-Cigarette/Vaping Use: Never Used service: No Current occupational status: retired Cognitive needs: No Hearing needs: Yes Vision needs: Yes Questionnaire PHQ-9 Over the last 2 weeks, how often have you been bothered by any of the following problems? 1. Little interest or pleasure in doing things: not at all 2. Feeling down, depressed, or hopeless: not at all 3. Trouble falling or staying asleep, or sleeping too much: several days 4. Feeling tired or having little energy: not at all 5. Poor appetite or overeating: not at all 6. Feeling bad about yourself - or that you are a failure or have let yourself or your family down: not at all 7. Trouble concentrating on things, such as reading the newspaper or watching television: not at all 8. Moving or speaking so slowly that other people could have noticed. Or the opposite - being so fidgety or restless that you have been moving around a lot more than usual: not at all 9. Thoughts that you would be better off or of hurting yourself in some way: not at all Total score: 1 Depression Screening Interpretation: Negative Depression Screening Done: Yes 47828 - PHQ-9 Billing: Yes Source: Developed by Drs. Stu Hurt, Jaquelin BDhiraj Navas and colleagues, with an educational nilo from [employer]. Thrive Questionnaire Date Thrive assessed: 12/17/23 I am a: Patient What is your living situation today?: I have a steady place to live Within the past 12 months, did the food you bought not last and you didn't have the money to get more?: Never true Within the past 12 months, did you worry whether your food would run out before you got money to buy more?: Never true Do you have trouble paying for medicines?: No Do you have trouble getting transportation to medical appointments?: No Do you have trouble paying your heating and electricity bill?: No Do you have trouble taking care of your child, family member or friend?: No Do you have trouble with day-to-day activities such as bathing, preparing meals, shopping, managing finances, etc.?: No Are you currently unemployed and looking for a job?: No Are you interested in more education?: No Please select the resources that you would like help with: None Currently or been in a relationship where the following occur: No concerns reported THRIVE Score: 0 AUDIT C Alcohol Use Questionnaire (AUDIT-C) 1. How often do you have a drink containing alcohol?: Never 3. How often do you have six or more drinks on one occasion?: Never Total Score: 0 Score Reviewed/Action Taken: Yes MAGY-7 AMB Questionnaire MAGY-7 Date MAGY - 7 assessed: 12/17/23 Feeling nervous, anxious, or on edge: 0 = Not at all Not being able to stop or control worryin = Not at all Worrying too much about different things: 0 = Not at all Trouble relaxin = Not at all Being so restless that it is hard to sit still: 0 = Not at all Becoming easily annoyed or irritable: 0 = Not at all Feeling afraid as if something awful might happen: 0 = Not at all Total MAGY-7 score (0-4 normal; 5-9 mild; 10-14 moderate; 15-21 severe): 0 Source: Developed by Drs. Stu Hurt, Dhiraj Pereira and colleagues, with an educational nilo from [employer]. MAGY-7 Assessment Billing MAGY-7 Assessment Tool: MAGY-7 Assessment 96899 Review of Systems Const Denies chills and Denies fever(s) ENT Denies epistaxis and Denies nasal discharge Resp Denies chest congestion, Denies cough and Denies hemoptysis GI Denies diarrhea and Denies nausea Skin/Breast Denies rash Neuro Reports no additional complaints Psych Reports no additional complaints Endo Reports no additional complaints Physical exam (Primary Care) Vital Signs: Last Vital Signs Pulse 71 12/17/23 13:31 BP 130/60 12/17/23 13:31 Pulse Ox 96 12/17/23 13:31 Oxygen Delivery Method Room Air 12/17/23 13:31 BMI result Body Mass Index 31.9 Tobacco/Smoking Status: Tobacco use Status Tobacco use date assessed 12/17/23 12/17/23 13:34 Patient Tobacco Use Status Former Tobacco user 12/17/23 13:34 Tobacco use type Cigar 12/17/23 13:34 e-Cigarette/Vaping Use Never Used 12/17/23 13:34 PHQ-9: PHQ-9 Score PHQ-9: Total score 1 12/17/23 13:34 Depression Screening Interpretation: Negative Thrive Assessment: Date of Thrive Assessment Date Thrive assessed 12/17/23 12/17/23 13:34 Currently or been in a relationship where the following occur: No concerns reported Const General: cooperative, comfortable and no acute distress Orientation/consciousness: patient oriented x3 HENNC Head: Yes normocephalic Head images: 1. Soft lump felt nontender size of Pea on left side neck, neck is supple Eyes General: appearance normal, both eyes and all related structures Neck Neck: Yes supple Resp Effort & Inspection: normal respiratory effort, no cough and no stridor Cardio Rhythm: regular rhythm Heart sounds: S1 normal heart sound present and S2 normal heart sound present Skin General skin exam: turgor normal Neuro General: patient oriented x3, tone normal and moves all extremities Extrem Right lower extremity: no edema Left lower extremity: no edema Assessment and Plan Assessment & Plan (1) Neck mass: Code(s): R22.1 - Localized swelling, mass and lump, neck (2) Right rib fracture: Code(s): S22.31XA - Fracture of one rib, right side, initial encounter for closed fracture Qualifiers: Encounter type: subsequent encounter Rib fracture type: single rib Fracture healing: with routine healing Fracture type: closed Qualified Code(s): S22.31XD - Fracture of one rib, right side, subsequent encounter for fracture with routine healing Plan Patient is 78-year-old gentleman came in today to be evaluated for rib fracture and abnormality seen in neck Patient presented to urgent Care on of this month with a chief complaint of pain right sided chest for the past 2 weeks. He verbalize that pain is worse when he is laying down He had an injury on 28 of November due to heavy lifting Pain was sharp ache and worsened with movement X-ray of chest showed Nondisplaced fracture in the anterior 6 rib There is mass effect on the trachea causing deviation towards the right Soft tissue thickening along the right paratracheal stripe CT scan could be obtained for further evaluation Patient came in today for follow-up on that Patient has seen design cell engineer after that who has already ordered CT scan with contrast Today on examination I feel a lump close to his thyroid gland left side I have ordered some labs for him and gave him a printout When he will go for his kidney functions before CT scan patient is to have the labs I ordered as well Further management after the report Patient is asymptomatic, there is no problem swallowing or talking And right-sided rib pain is getting better Orders: Orders Comprehensive Met. Panel Today R22.1 - Localized swelling, mass and lump, neck Complete Blood Count Auto Diff Today R22.1 - Localized swelling, mass and lump, neck TSH reflex Free T4 Today R22.1 - Localized swelling, mass and lump, neck Coding Level of Care Code Est Pt Level 4 (47814) Diagnoses Neck mass R22.1 Closed fracture of one rib of right side with routine healing, subsequent encounter S22.31XD Encounter type: subsequent encounter Rib fracture type: single rib Fracture healing: with routine healing Fracture type: closed Additional Codes MAGY-7 Assessment Billing - MAGY-7 Assessment Tool: MAGY-7 Assessment [id number] ([id number])
== END 2023-12-17 14:00 | disposition home or self-care (01) ==
PROVIDERS: PCP Internal Medicine; Visit Provider Internal Medicine
DX: R22.1 Localized swelling, mass and lump, neck (principal); S22.31XA Fracture of one rib, right side, initial encounter for closed fracture
CPT/HCPCS: 99214

== ENCOUNTER 2024-01-06 09:07 | Outpatient (REF) | payer MEDICARE, OTHER, SELFPAY ==
[2024-01-06 13:24] LABS: MANUAL DIFF FLAG NO
[2024-01-06 13:53] LABS: Alanine Aminotransferase 20 U/L (0-40); Albumin Level 3.9 g/dL (3.5-5.0); Alkaline Phosphatase 93 U/L (39-117); Anion Gap 13 (12-20); Aspartate Amino Transferase 18 U/L (5-37); Bilirubin Total 0.5 mg/dL (0.0-1.0); Blood Urea Nitrogen 18 mg/dL (9-16); Calcium 9.2 mg/dL (8.4-10.2); Carbon Dioxide 24 mmol/L (22-29); Chloride 108 mmol/L (96-108); Estimated Glomerular Filt Rate > 60; Glucose Random 120 mg/dL (60-115); Potassium 4.4 mmol/L (3.3-5.1); Sodium 141 mmol/L (135-145); Total Protein 6.5 g/dL (6.5-8.0)
[2024-01-06 14:00] LABS: Basophils Absolute Auto 0.1 X10*3/uL (0.0-0.2); Basophils Percent Auto 0.9 % (0-2); Eosinophils Absolute Auto 0.9 X10*3/uL (0.0-0.4); Hematocrit 40.9 % (42.0-52.0); Hemoglobin 13.8 g/dl (14.0-18.0); Imm Gran Abs Auto 0.04 X10*3/uL (0.00-0.03); Imm Gran Pct Auto 0.5 % (0.0-0.4); Lymphocytes Absolute Auto 2.3 X10*3/uL (1.2-4.9); Lymphocytes Percent Auto 27.3 % (20-40); Mean Corpuscular HGB Conc 33.7 g/dl (31.0-36.0); Mean Corpuscular Hemoglobin 28.8 pg (27.0-33.0); Mean Corpuscular Volume 85.4 fL (80.0-98.0); Mean Platelet Volume 9.4 fL (9.4-12.4); Monocytes Absolute Auto 0.7 X10*3/uL (0.1-1.2); Monocytes Percent Auto 7.7 % (2-11); Neutrophils Absolute Auto 4.5 x10*3/uL (2.0-8.3); Neutrophils Percent Auto 52.6 % (45-73); Platelet Count 293 X10*3/uL (160-400); Red Blood Count 4.79 X10*6/uL (4.60-5.80); Red Cell Distribution Width 15.4 % (11.0-16.0); TSH reflex Free T4 3.92 uIU/mL (0.32-4.0); White Blood Count 8.5 X10*3/uL (4.8-10.8)
== END 2024-01-06 09:08 | disposition home or self-care (01) ==
LOC: HO.HMGCLDS 09:07
PROVIDERS: Internal Medicine; PCP Internal Medicine; Visit Provider Internal Medicine
DX: R22.1 Localized swelling, mass and lump, neck (principal)
CPT/HCPCS: 36415; 80053; 84443; 85025

== ENCOUNTER 2024-01-13 08:46 | Outpatient (AMB) | payer MEDICARE, OTHER, SELFPAY ==
--- NOTE | 2024-01-13 08:43 | MHC.PC.OV ---
Intake Visit Reasons: Ct chest scan Allergies sertraline Adverse Reaction (Unknown, Verified 01/13/24 08:44) facial numbness simvastatin Adverse Reaction (Unknown, Verified 01/13/24 08:44) sore muscles Medication List - Last Reconciled 01/13/24 by Jessica Clark MD amitriptyline 10 mg PO BEDTIME 90 days aspirin (Adult Aspirin Regimen) 81 mg PO DAILY atorvastatin 40 mg PO DAILY lisinopril 20 mg PO DAILY omega-3 fatty acids-fish oil 360-1,200 mg (Fish Oil) 1 cap PO DAILY prednisolone 5 mg PO DAILY solifenacin 10 mg PO DAILY Tobacco use date assessed: 12/17/23 Dental Screening Dental Screen Date: 12/17/[address] chest scan HPI Details Patient had repeat CT chest, which showed small granuloma and healing rib fracture part of trachea was seen and that came back normal how ever the lump i felt was almost in the middle of neck right side i am ordering US soft tissue of neck to further evaluate that explained to patient and he agree [facility] Medical History Hypertension, essential Lipid disorder Migraine headache Surgical History S/P right coronary artery (RCA) stent placement H/O prostatectomy History of umbilical hernia repair Hx of cholecystectomy Family History Father Skin cancer Lymphoma Mother No problems noted. Daughter Migraine Maternal Grandfather No problems noted. Maternal Grandmother No problems noted. Paternal Grandfather No problems noted. Paternal Grandmother No problems noted. Brother No problems noted. Son No problems noted. Son No problems noted. Social History Housing: House Patient Tobacco Use Status: Former Tobacco user Tobacco use type: Cigar e-Cigarette/Vaping Use: Never Used service: No Current occupational status: retired Cognitive needs: No Hearing needs: Yes Vision needs: Yes Questionnaire Thrive Questionnaire Date Thrive assessed: 12/17/23 MAGY-7 AMB Questionnaire MAGY-7 Date MAGY - 7 assessed: 12/17/23 Source: Developed by Drs. Stu Hurt, Jaquelin Dhiraj De La Cruz and colleagues, with an educational nilo from [employer]. Review of Systems Const Denies chills and Denies fever(s) ENT Denies epistaxis and Denies nasal discharge Resp Denies chest congestion and Denies hemoptysis GI Denies diarrhea and Denies nausea Skin/Breast Denies rash Neuro Reports no additional complaints Psych Reports no additional complaints Endo Reports no additional complaints Physical exam (Primary Care) Tobacco/Smoking Status: Tobacco use Status Tobacco use date assessed 12/17/23 01/13/24 08:43 Patient Tobacco Use Status Former Tobacco user 01/13/24 08:43 Tobacco use type Cigar 01/13/24 08:43 e-Cigarette/Vaping Use Never Used 01/13/24 08:43 Thrive Assessment: Date of Thrive Assessment Date Thrive assessed 12/17/23 01/13/24 08:43 Telehealth Telehealth Telehealth Platform: [employer] Location of provider rendering services: practice address Location of patient: address on file Patient Identification confirmed using: Name, : Yes Telehealth method: voice only Patient verbally consented to treatment: Yes Patient verbally consented to billing insurance company: Yes Patient informed of any privacy concerns related to visit: Yes Minutes spent on Phone/Video with Pt.: 12 Assessment and Plan Assessment & Plan (1) Neck mass: Code(s): R22.1 - Localized swelling, mass and lump, neck Plan Patient had repeat CT chest, which showed small granuloma and healing rib fracture part of trachea was seen and that came back normal how ever the lump i felt was almost in the middle of neck right side i am ordering US soft tissue of neck to further evaluate that explained to patient and he agree Orders: Orders US soft tiss head and/or neck Today R22.1 - Localized swelling, mass and lump, neck Coding Level of Care Code Tele Est Pt Level 3 (86583) Diagnoses Neck mass R22.1
== END 2024-01-13 13:37 | disposition home or self-care (01) ==
LOC: HO.HMCC 08:46
PROVIDERS: PCP Internal Medicine; Visit Provider Internal Medicine
DX: R22.1 Localized swelling, mass and lump, neck (principal)

== ENCOUNTER → 2024-01-13 08:46 | Outpatient (BNVA) | payer MEDICARE, OTHER, SELFPAY | PROVIDERS: PCP Internal Medicine; Visit Provider Internal Medicine ==

== ENCOUNTER → 2024-01-18 15:09 | Outpatient (BNVA) | payer MEDICARE, OTHER, SELFPAY | PROVIDERS: PCP Internal Medicine; Visit Provider Internal Medicine ==

== ENCOUNTER 2024-01-20 13:48 | Outpatient (REF) | payer MEDICARE, OTHER, SELFPAY ==
--- NOTE | ~2024-01-20 | US_ITS ---
EXAMINATION: US SOFT TISSUE HEAD/NECK CLINICAL INFORMATION: Localized swelling, mass or lump, neck. Soft lump felt, nontender, size of a pea on left side of neck. Patient unable to palpate lump. COMPARISON: None available. TECHNIQUE: Linear transducer grayscale and color Doppler examination of the left neck, all zones. FINDINGS: Patient was unable to indicate precise area of concern. No bulky adenopathy or fluid collection identified in the general area of concern in the left neck. Radiologist was not in attendance. Images were later provided for interpretation. US/US soft tiss head and/or neck IMPRESSION: No bulky adenopathy or fluid collection identified in the area general area of concern in the left neck. Please note that per history provided, patient was unable to palpate lump and therefore only generalized ultrasound of the left neck was performed. Decisions regarding further imaging, treatment or biopsy should be based on the clinical exam, as not all abnormalities are detectable on ultrasound studies. Electronically signed by: Yelitza Mendoza MD 02/14/2024 11:04 AM EDT
== END 2024-01-20 13:49 | disposition home or self-care (01) ==
LOC: HO.HMGCX 13:48
PROVIDERS: PCP Internal Medicine; Visit Provider Internal Medicine
DX: R22.1 Localized swelling, mass and lump, neck (principal)
CPT/HCPCS: 76536

== ENCOUNTER 2024-05-17 08:38 | Outpatient (REF) | payer MEDICARE, OTHER, SELFPAY ==
[2024-05-17 10:48] LABS: MANUAL DIFF FLAG NO
[2024-05-17 10:52] LABS: Basophils Absolute Auto 0.1 X10*3/uL (0.0-0.2); Basophils Percent Auto 0.6 % (0-2); Eosinophils Absolute Auto 0.7 X10*3/uL (0.0-0.4); Eosinophils Percent Auto 8.7 % (0-4); Hematocrit 38.7 % (42.0-52.0); Hemoglobin 13.6 g/dl (14.0-18.0); Imm Gran Abs Auto 0.04 X10*3/uL (0.00-0.03); Imm Gran Pct Auto 0.5 % (0.0-0.4); Lymphocytes Absolute Auto 2.4 X10*3/uL (1.2-4.9); Lymphocytes Percent Auto 28.3 % (20-40); Mean Corpuscular HGB Conc 35.1 g/dl (31.0-36.0); Mean Corpuscular Hemoglobin 29.6 pg (27.0-33.0); Mean Corpuscular Volume 84.3 fL (80.0-98.0); Mean Platelet Volume 9.6 fL (9.4-12.4); Monocytes Absolute Auto 0.7 X10*3/uL (0.1-1.2); Monocytes Percent Auto 8.6 % (2-11); Neutrophils Absolute Auto 4.6 x10*3/uL (2.0-8.3); Neutrophils Percent Auto 53.3 % (45-73); Platelet Count 286 X10*3/uL (160-400); Red Blood Count 4.59 X10*6/uL (4.60-5.80); Red Cell Distribution Width 14.7 % (11.0-16.0); White Blood Count 8.5 X10*3/uL (4.8-10.8)
[2024-05-17 11:46] LABS: Alanine Aminotransferase 21 U/L (0-40); Albumin Level 4.1 g/dL (3.5-5.0); Alkaline Phosphatase 89 U/L (39-117); Anion Gap 11 (12-20); Aspartate Amino Transferase 26 U/L (5-37); Bilirubin Total 0.5 mg/dL (0.0-1.0); Blood Urea Nitrogen 24 mg/dL (9-16); Calcium 9.5 mg/dL (8.4-10.2); Carbon Dioxide 29 mmol/L (22-29); Chloride 103 mmol/L (96-108); Estimated Glomerular Filt Rate > 60; Glucose Random 140 mg/dL (60-115); Potassium 3.9 mmol/L (3.3-5.1); Sodium 139 mmol/L (135-145); Total Protein 7.1 g/dL (6.5-8.0)
[2024-05-17 11:55] LABS: Ferritin 300 ng/mL (20-250)
[2024-05-17 12:01] LABS: Vitamin B12 197 pg/mL (200-900)
[2024-05-18 18:28] LABS: LDL Cholesterol Direct 88 mg/dL (<100)
[2024-05-21 15:49] LABS: Vitamin D 25-OH, D2 <4 ng/mL; Vitamin D 25-OH, D3 20 ng/mL; Vitamin D 25-OH, Total 20 ng/mL (30-100)
== END 2024-05-17 08:39 | disposition home or self-care (01) ==
LOC: HO.HMGCLDS 08:38
PROVIDERS: PCP Internal Medicine; Visit Provider Internal Medicine
DX: I10 Essential (primary) hypertension (principal); E78.9 Disorder of lipoprotein metabolism, unspecified; G43.919 Migraine, unspecified, intractable, without status migrainosus; I25.10 Atherosclerotic heart disease of native coronary artery without angina pectoris; H91.93 Unspecified hearing loss, bilateral; E66.09 Other obesity due to excess calories; Z68.31 Body mass index [BMI] 31.0-31.9, adult; N28.9 Disorder of kidney and ureter, unspecified; D63.8 Anemia in other chronic diseases classified elsewhere; Z79.899 Other long term (current) drug therapy
CPT/HCPCS: 36415; 80053; 82306; 82607; 82728; 83721; 84443; 85025; 96127; 99212

== ENCOUNTER 2024-05-17 08:38 | Outpatient (AMB) | payer MEDICARE, OTHER, SELFPAY ==
[2024-05-17 08:40] VITALS: BP 136/68; PULSE 74; O2SAT 92; BMI 33.0
--- NOTE | 2024-05-17 08:40 | A.OFFPC_ITS ---
Vital Signs 05/17/24 08:40 Height 5 ft 5 in Weight 198 lb 4 oz BMI 33.0 BP 136/68 Blood Pressure Location Lt brachial Position Sitting Pulse 74 Pulse Source Pulse Oximeter Pulse Oximetry (%) 92 Oxygen Delivery Method Room Air Intake Visit Reasons: Medication follow up Allergies sertraline Adverse Reaction (Unknown, Verified 05/17/24 08:40) facial numbness simvastatin Adverse Reaction (Unknown, Verified 05/17/24 08:40) sore muscles Medication List - Last Reconciled 05/17/24 by Jessica Clark MD amitriptyline 10 mg PO BEDTIME 90 days aspirin (Adult Aspirin Regimen) 81 mg PO DAILY atorvastatin 40 mg PO DAILY lisinopril 20 mg PO DAILY omega-3 fatty acids-fish oil 360-1,200 mg (Fish Oil) 1 cap PO DAILY solifenacin 10 mg PO DAILY Tobacco use date assessed: 05/17/24 Fall risk assessment: 1 Fall in past year Last assessed Fall Risk: 05/17/24 Dental Screening Dental Screen Date: 05/17/24 Did you have a dental visit in the last 12 months?: No Did you have a dental problem in the last 6 months where you did not have access to dental care?: No Was dental information given to patient?: No HPI Medication follow up HPI Details - The patient is an 79-year-old male, pr esenting for regular follow-up appointment - Essential Hypertension: Previously man aged with medication. Blood pressure at cardiology visit in March was 157 systolic, leading to a prescription adjustment. Current medication includes Lisinopril 20 mg and Hydrochlorothiazide. - Hyperlipidemia: Monitoring and managem ent include Atorvastatin 40 mg. Recent cardiology report indicated adequate cholesterol control. - Anemia: Slight anemia noted, requires updated laboratory evaluation. Blood work planned for today since the last labs were completed in December. - History of stent placement: Patient roblero s coronary artery stents placed two years ago. Continued follow-up with cardiology scheduled for September. - migraine headaches stable Medications - Atorvastatin 40 mg for hyperlipidemia - Lisinopril 20 mg for hypertension - Hydrochlorothiazide for hypertension - Amitriptyline for migraine prevention Diagnostic results - Labs: Anemia noted in previous lab wor k, new labs ordered today. - Tests: Previous cardiology monitoring showed increased systolic blood pressure at last visit. Habematolel of Care - Extension Service Supervisor[facility] every six months, next appointment in September. - Urologist: Dr. Chavarria, no recent issues reported. - Mechanical Engineering Officer: Kidney care consultation with records from August, next follow-up in July with [facility]. Patient Instructions - Complete laboratory tests today. - Schedule an Medicare wellness visit in 6 months - Continue current medications as prescr ibed. - Follow up with cardiology and nephrolo gy as scheduled. - Stay warm and take care of your health during the cold weather. Review of Systems - General: Reports well-being, denies an y acute problems. - Cardiovascular: Denies current hyperte nsion issues; reports previous high blood pressure readings. - Musculoskeletal: Denies swelling, curr ent comfort in shoulders. neurological: No headaches no dizziness ear nose throat: No sore throat no hearing difficulty no ear pain gastrointestinal: No nausea vomiting or diarrhea endocrine: No polyuria polydipsia no heat intolerance genitourinary: No dysuria skin: No new complaints Physical Exam general: No acute distress HEENT: No acute findings neck: Supple respiratory system: Able to talk in full sentences, no audible wheeze no stridor cardiovascular: S1-S2, blood pressure 136 systolic gastrointestinal: No pain extremities: No new findings DIRECTOR OF GRANTS: Alert awake oriented x3 motor sensory intact skin: Normal turgor, no swelling PFSH Medical History Hypertension, essential Lipid disorder Migraine headache Surgical History S/P right coronary artery (RCA) stent placement H/O prostatectomy History of umbilical hernia repair Hx of cholecystectomy Family History Father Skin cancer Lymphoma Mother No problems noted. Daughter Migraine Maternal Grandfather No problems noted. Maternal Grandmother No problems noted. Paternal Grandfather No problems noted. Paternal Grandmother No problems noted. Brother No problems noted. Son No problems noted. Son No problems noted. Social History Housing: House Patient Tobacco Use Status: Former Tobacco user Tobacco use type: Cigar e-Cigarette/Vaping Use: Never Used service: No Current occupational status: retired Cognitive needs: No Hearing needs: Yes Vision needs: Yes Questionnaire PHQ-9 Over the last 2 weeks, how often have you been bothered by any of the following problems? 1. Little interest or pleasure in doing things: not at all 2. Feeling down, depressed, or hopeless: not at all 3. Trouble falling or staying asleep, or sleeping too much: several days 4. Feeling tired or having little energy: not at all 5. Poor appetite or overeating: several days 6. Feeling bad about yourself - or that you are a failure or have let yourself or your family down: not at all 7. Trouble concentrating on things, such as reading the newspaper or watching television: not at all 8. Moving or speaking so slowly that other people could have noticed. Or the opposite - being so fidgety or restless that you have been moving around a lot more than usual: not at all 9. Thoughts that you would be better off or of hurting yourself in some way: not at all Total score: 2 Depression Screening Interpretation: Negative Depression Screening Done: Yes 05241 - PHQ-9 Billing: Yes Source: Developed by Drs. Stu Hurt, Jaquelin Tse, Dhiraj Bar and colleagues, with an educational nilo from [employer]. Thrive Questionnaire Date Thrive assessed: 05/17/24 I am a: Patient What is your living situation today?: I have a steady place to live Within the past 12 months, did the food you bought not last and you didn't have the money to get more?: Never true Within the past 12 months, did you worry whether your food would run out before you got money to buy more?: Never true Do you have trouble paying for medicines?: No Do you have trouble getting transportation to medical appointments?: No Do you have trouble paying your heating and electricity bill?: No Do you have trouble taking care of your child, family member or friend?: No Do you have trouble with day-to-day activities such as bathing, preparing meals, shopping, managing finances, etc.?: No Are you currently unemployed and looking for a job?: No Are you interested in more education?: No Please select the resources that you would like help with: None Currently or been in a relationship where the following occur: I choose not to answer THRIVE Score: 0 AUDIT C Alcohol Use Questionnaire (AUDIT-C) 1. How often do you have a drink containing alcohol?: Never 3. How often do you have six or more drinks on one occasion?: Never Total Score: 0 Score Reviewed/Action Taken: Yes MAGY-7 AMB Questionnaire MAGY-7 Date MAGY - 7 assessed: 05/17/24 Feeling nervous, anxious, or on edge: 0 = Not at all Not being able to stop or control worryin = Not at all Worrying too much about different things: 0 = Not at all Trouble relaxin = Not at all Being so restless that it is hard to sit still: 0 = Not at all Becoming easily annoyed or irritable: 0 = Not at all Feeling afraid as if something awful might happen: 0 = Not at all Total MAGY-7 score (0-4 normal; 5-9 mild; 10-14 moderate; 15-21 severe): 0 Source: Developed by Drs. Stu Hurt, Jaquelin Tse, Dhiraj Bar and colleagues, with an educational nilo from [employer]. MAGY-7 Assessment Billing MAGY-7 Assessment Tool: MAGY-7 Assessment 33296 Physical exam (Primary Care) Vital Signs: Last Vital Signs Pulse 74 05/17/24 08:40 BP 136/68 05/17/24 08:40 Pulse Ox 92 05/17/24 08:40 Oxygen Delivery Method Room Air 05/17/24 08:40 BMI result Body Mass Index 33.0 Tobacco/Smoking Status: Tobacco use Status Tobacco use date assessed 05/17/24 05/17/24 08:42 Patient Tobacco Use Status Former Tobacco user 05/17/24 08:42 Tobacco use type Cigar 05/17/24 08:42 e-Cigarette/Vaping Use Never Used 05/17/24 08:42 PHQ-9: PHQ-9 Score PHQ-9: Total score 2 05/17/24 13:03 Depression Screening Interpretation: Negative Thrive Assessment: Date of Thrive Assessment Date Thrive assessed 05/17/24 05/17/24 08:42 Currently or been in a relationship where the following occur: I choose not to answer Coding Level of Care Code Est Pt Level 4 (04478) Complex EM visit Add On G2211 Diagnoses Hypertension, essential I10 Lipid disorder E78.9 Intractable migraine without status migrainosus, unspecified migraine type G43.919 Intractability: intractable Migraine type: unspecified Status migrainosus presence: without status migrainosus Coronary artery disease involving [place] coronary artery of [place] heart without angina pectoris I25.10 Associated angina: without angina Coronary Disease-Associated Artery/Lesion type: [place] artery [place] vs. transplanted heart: tan[place]ross heart Hearing difficulty of both ears H91.93 Class 1 obesity due to excess calories with serious comorbidity and body mass index (BMI) of 31.0 to 31.9 in adult E66.09; Z68.31 Body mass index: BMI 31.0-31.9 Obesity classification: adult class 1 (BMI 30 - 34.9) Serious obesity comorbidity presence: with serious comorbidity Nephropathy N28.9 Anemia of chronic disease D63.8 Additional Codes MAGY-7 Assessment Billing - MAGY-7 Assessment Tool: MAGY-7 Assessment 56395 ([id number]) PHQ-9 - 16947 - PHQ-9 Billing: Yes ([id number]) Assessment & Plan Assessment & Plan (1) Hypertension, essential: Code(s): I10 - Essential (primary) hypertension Category: Medical (2) Lipid disorder: Code(s): E78.9 - Disorder of lipoprotein metabolism, unspecified Category: Medical (3) Migraine headache: Code(s): G43.909 - Migraine, unspecified, not intractable, without status migrainosus Category: Medical Qualifiers: Intractability: intractable Migraine type: unspecified Status migrainosus presence: without status migrainosus Qualified Code(s): G43.919 - Migraine, unspecified, intractable, without status migrainosus (4) Coronary artery disease: Code(s): I25.10 - Atherosclerotic heart disease of [place] coronary artery without angina pectoris Category: Medical Qualifiers: Associated angina: without angina Coronary Disease-Associated Artery/Lesion type: [place] artery [place] vs. transplanted heart: [place]ross heart Qualified Code(s): I25.10 - Atherosclerotic heart disease of [place] coronary artery without angina pectoris (5) Hearing difficulty of both ears: Code(s): H91.93 - Unspecified hearing loss, bilateral Category: Medical (6) Obesity due to excess calories: Code(s): E66.09 - Other obesity due to excess calories Category: Medical Qualifiers: Body mass index: BMI 31.0-31.9 Obesity classification: adult class 1 (BMI 30 - 34.9) Serious obesity comorbidity presence: with serious comorbidity Qualified Code(s): E66.09 - Other obesity due to excess calories; Z68.31 - Body mass index [BMI] 31.0-31.9, adult (7) Nephropathy: Code(s): N28.9 - Disorder of kidney and ureter, unspecified Category: Medical (8) Anemia of chronic disease: Code(s): D63.8 - Anemia in other chronic diseases classified elsewhere Category: Medical Plan - The patient is an 79-year-old male, presenting for an annual physical exam - Essential Hypertension: Previously managed with medication. Blood pressure at cardiology visit in March was 157 systolic, leading to a prescription adjustment. Current medication includes Lisinopril 20 mg and Hydrochlorothiazide. - Hyperlipidemia: Monitoring and management include Atorvastatin 40 mg. Recent cardiology report indicated adequate cholesterol control. - Anemia: Slight anemia noted, requires updated laboratory evaluation. Blood work planned for today since the last labs were completed in December. - History of stent placement: Patient has coronary artery stents placed two years ago. Continued follow-up with cardiology scheduled for September. - migraine headaches stable Medications - Atorvastatin 40 mg for hyperlipidemia - Lisinopril 20 mg for hypertension - Hydrochlorothiazide for hypertension - Amitriptyline for migraine prevention Diagnostic results - Labs: Anemia noted in previous lab work, new labs ordered today. - Tests: Previous cardiology monitoring showed increased systolic blood pressure at last visit. Habematolel of Care - Extension Service Supervisor: [facility], routine follow-up every six months, next appointment in September. - Urologist: Dr. Chavarria, no recent issues reported. - Mechanical Engineering Officer: Kidney care consultation with records from August, next follow-up in July with [facility]. Patient Instructions - Complete laboratory tests today. - Schedule an annual physical exam for next year . - Continue current medications as prescribed. - Follow up with cardiology and nephrology as scheduled. - Stay warm and take care of your health during the cold weather. Orders: Orders Complete Blood Count Auto Diff Today D63.8 - Anemia in other chronic diseases classified elsewhere, E66.09 - Other obesity due to excess calories, E78.9 - Disorder of lipoprotein metabolism, unspecified, G43.919 - Migraine, unspecified, intractable, without status migrainosus, H91.93 - Unspecified hearing loss, bilateral, I10 - Essential (primary) hypertension, I25.10 - Atherosclerotic heart disease of tan[place] coronary artery without angina pectoris, N28.9 - Disorder of kidney and ureter, unspecified, Z68.31 - Body mass index [BMI] 31.0-31.9, adult Ferritin Today D63.8 - Anemia in other chronic diseases classified elsewhere, E66.09 - Other obesity due to excess calories, E78.9 - Disorder of lipoprotein metabolism, unspecified, G43.919 - Migraine, unspecified, intractable, without status migrainosus, H91.93 - Unspecified hearing loss, bilateral, I10 - Essential (primary) hypertension, I25.10 - Atherosclerotic heart disease of [place] coronary artery without angina pectoris, N28.9 - Disorder of kidney and ureter, unspecified, Z68.31 - Body mass index [BMI] 31.0-31.9, adult Vitamin B12 Today D63.8 - Anemia in other chronic diseases classified elsewhere, E66.09 - Other obesity due to excess calories, E78.9 - Disorder of lipoprotein metabolism, unspecified, G43.919 - Migraine, unspecified, intractable, without status migrainosus, H91.93 - Unspecified hearing loss, bilateral, I10 - Essential (primary) hypertension, I25.10 - Atherosclerotic heart disease of [place] coronary artery without angina pectoris, N28.9 - Disorder of kidney and ureter, unspecified, Z68.31 - Body mass index [BMI] 31.0- 31.9, adult TSH reflex Free T4 Today D63.8 - Anemia in other chronic diseases classified elsewhere, E66.09 - Other obesity due to excess calories, E78.9 - Disorder of lipoprotein metabolism, unspecified, G43.919 - Migraine, unspecified, intractabl e, without status migrainosus, H91.93 - Unspecified hearing loss, bilateral, I10 - Essential (primary) hypertension, I25.10 - Atherosclerotic heart disease of [place] coronary artery without angina pectoris, N28.9 - Disorder of kidney and ureter, unspecified, Z68.31 - Body mass index [BMI] 31.0-31.9, adult Comprehensive Met. Panel Today D63.8 - Anemia in other chronic diseases classified elsewhere, E66.09 - Other obesity due to excess calories, E78.9 - Disorder of lipoprotein metabolism, unspecified, G43.919 - Migraine, unspecified, intractable, without status migrainosus, H91.93 - Unspecified hearing loss, bilateral, I10 - Essential (primary) hypertension, I25.10 - Atherosclerotic heart disease of [place] coronary artery without angina pectoris, N28.9 - Disorder of kidney and ureter, unspecified, Z68.31 - Body mass index [BMI] 31.0-31.9, adult LDL Cholesterol Direct Today D63.8 - Anemia in other chronic diseases classified elsewhere, E66.09 - Other obesity due to excess calories, E78.9 - Disorder of lipoprotein metabolism, unspecified, G43.919 - Migraine, unspecified, intractable, without status migrainosus, H91.93 - Unspecified hearing loss, bilateral, I10 - Essential (primary) hypertension, I25.10 - Atherosclerotic heart disease of [place] coronary artery without angina pectoris, N28.9 - Disorder of kidney and ureter, unspecified, Z68.31 - Body mass index [BMI] 31.0-31.9, adult Vitamin D 25-OH (D2 and D3) Today D63.8 - Anemia in other chronic diseases classified elsewhere, E66.09 - Other obesity due to excess calories, E78.9 - Disorder of lipoprotein metabolism, unspecified, G43.919 - Migraine, unspecified, intractable, without status migrainosus, H91.93 - Unspecified hearing loss, bilateral, I10 - Essential (primary) hypertension, I25.10 - Atherosclerotic heart disease of [place] coronary artery without angina pectoris, N28.9 - Disorder of kidney and ureter, unspecified, Z68.31 - Body mass index [BMI] 31.0-31.9, adult
--- OUTSIDE RECORDS SUMMARY | 2024-05-17 08:55 | XMS_ITS | Encounter Summary ---
Author Organization [facility] Address [address] [place] [address] Phone Care Team Providers Care Poultry Farmer Meat Name Role Phone Jessica Calrk MD Primary Care Provider [phone] Encounter Details Date Type Department Care Team (Late st Contact Info) Description 10/21/2022 Documentation Only [facility] [address] [place] [address] Jessica Clark MD [address] [place] [address] Social History Tobacco Use Types Packs/Day Years Used Date Smoking Tobacco: Never Assessed Sex and Gender Information Value Date Recorded Sex Assigned at Not on file Legal Sex Male 10:07 AM EDT Gender Identity Not on file Sexual Orientation Not on file documented as of this encounter Plan of Treatment Upcoming Encounters Date Type Department Care Team (Late st Contact Info) Description 08/09/2024 10:00 AM EDT Office Visit [facility] [address] [place] [address] Viraj Rogers MD [address] [place] [address] [place] [address] documented as of this encounter Visit Diagnoses Not on filedocumented in this encounter Care Teams Poultry Farmer Meat Relationship Specialty Start Date End Date Jessica Clark MD [address] [place] [address] PCP - General Internal Medicine 10/21/22 documented as of this encounter
--- OUTSIDE RECORDS SUMMARY | 2024-05-17 08:55 | XMS_ITS | Clinical Summary ---
Author Organization [facility], Address [address] [place] [address] Phone Care Team Providers Care Glass Forming Crew Member Name Role Phone Jessica Clark MD Primary Care Provider [phone] Allergies No known active allergies Medications amitriptyline (ELAVIL) 10 MG tablet TAKE 1 TABLET BY MOUTH AT BEDTIME FOR 90 DAYS 01/05/2023 Active atorvastatin (LIPITOR) 40 MG tablet Take 40 mg by mouth 1 (one) time each day 01/25/2023 Active lisinopril 20 MG tablet Take 20 mg by mouth 1 (one) time each day 12/15/2022 Active nitroglycerin (NITROSTAT) 0.[address] 0.4 mg under the tongue 11/25/2021 Active rosuvastatin (CRESTOR) 40 MG tablet Take 40 mg by mouth 1 (one) time each day in the evening 01/04/2023 Active solifenacin (VESICARE) 10 MG tablet Take 10 mg by mouth 1 (one) time each day 02/02/2023 Active ticagrelor (BRILINTA) 90 MG tablet Take 90 mg by mouth 08/05/2022 Active Active Problems Problem Noted Date Diagnosed Date Coronary arteriosclerosis 11/28/20222022 Hyperlipidemia 11/28/2022 11/28/2022 Hypertensive disorder 11/28/2022 11/28/2022 Stage 3b chronic kidney disease 11/28/2022 Encounters Date Type Department Care Team Description 04/12/2024 9:30 AM EST Office Visit [facility], [address] [place] [address] Viraj Rogers MD Stage 3b chronic kidney disease (HCC) (Primary Dx) from Last 3 Months Social History Tobacco Use Types Packs/Day Years Used Date Smoking Tobacco: Unknown Sex and Gender Information Value Date Recorded Sex Assigned at Not on file Legal Sex Male 10:07 AM EDT Gender Identity Not on file Sexual Orientation Not on file Last Filed Vital Signs Vital Sign Reading Time Taken Comments Blood Pressure 122/52 11/28/2022 7:44 AM EDT Pulse - - Temperature - - Respiratory Rate - - Oxygen Saturation - - Inhaled Oxygen Concentration - - Weight 84.7 kg (186 lb 12.8 oz) 11/28/2022 7:44 AM EDT Height - - Body Mass Index - - Plan of Treatment Upcoming Encounters Date Type Department Care Team (Late st Contact Info) Description 08/09/2024 10:00 AM EDT Office Visit [facility] [address] [place] [id number] Viraj Rogers MD [address] [place] [address] [place] [address] Health Maintenance Due Date Last Done Comments Pneumococcal Vaccine: 65+ Ye ars (1 of 2 - PCV) 1949 Influenza Vaccine (#1) 2023 Hepatitis B Vaccine Aged Out No longe r eligible based on patient's age to complete this topic Insurance MEDICARE [facility] [place] [address] Care Teams Glass Forming Crew Member Relationship Specialty Start Date End Date Jessica Clark MD [address] [place] [address] PCP - General Internal Medicine 10/21/22
--- OUTSIDE RECORDS SUMMARY | 2024-05-17 08:55 | XMS_ITS | Clinical Summary ---
Author Organization [facility] Address [address] [place] [address] Care Team Providers Care Jig Mill Operator Name Role Phone Unavailable Primary Care Provider Unavailabl e Source Comments PLEASE NOTE, if this patient is a minor, it may be UNLAWFUL to discuss sensitive information that is contained in these records (such as FAMILY PLANNING, MENTAL HEALTH or SUBSTANCE ABUSE) with the minor patient's parent or other person without the patient's specific authorization.[facility] Immunizations Name Administration Dates Next Due Moderna COVID-19 Vaccine, re d cap blue label, 12+ Primary Series 08/07/2020,07/10/2020 Social History Tobacco Use Types Packs/Day Years Used Date Smoking Tobacco: Never Assessed Social Connections Answer Date Recorded Social Connections and Isolation 0 07/10/2020 Financial Resource Strain Answer Date R ecorded Financial Resource Strain 0 2020 Stress Answer Date Recorded Stress 0 07/10/2020 Physical Activity Answer Date Recorded Physical Activity 0 07/10/2020 Food Insecurity Answer Date Recorded Food 0 07/10/2020 Transportation Needs Answer Date Record ed Transportation 0 07/10/2020 Housing Stability Answer Date Recorded Housing 0 07/10/2020 Safety and Environment Answer Date Wayne rded Safety 0 07/10/2020 Utilities Answer Date Recorded Utilities 0 07/10/2020 Employment Answer Date Recorded Employment 0 07/10/2020 Sex and Gender Information Value Date Recorded Sex Assigned at Not on file Legal Sex Male 10:05 AM PDT Gender Identity Not on file Sexual Orientation Not on file Plan of Treatment Health Maintenance Due Date Last Done Comments Tobacco Screening 1945 Advanced Care Planning 1945 Hypertension Screening (#1) 1961 Medicare Annual Wellness Visit 1961 Imm-DTaP/Tdap/Td (1 - Tdap) 1962 Imm-Zoster, Recombinant (1 of 2) 1993 Falls Prevention 2008 Imm-Pneumococcal 65+ (1 of 1 - PCV) 2008 Alcohol and Drug Screen 04/26/2023 Depression Annual Screen 04/26/2023 [id number] (2023- season) 2023//2 021, 07/10/2020 Imm-Influenza (#1) 2023 Insurance [place]ARE - [place]
--- OUTSIDE RECORDS SUMMARY | 2024-05-17 08:55 | XMS_ITS | Encounter Summary ---
Author Organization [facility] Address [address] [place] [address] Phone Care Team Providers Care Rfid Manager Name Role Phone Jessica Clark MD Primary Care Provider [phone] Encounter Details Date Type Department Care Team (Late st Contact Info) Description 10/22/2022 Documentation Only [facility] [address] [place] [address] Jessica Clark MD [address] [place] [address] Social History Tobacco Use Types Packs/Day Years [...] Visit [facility] [address] [place] [address] Viraj Rogers MD [address] [place] [address] [place] [address] documented as of this encounter Visit Diagnoses Not on filedocumented in this encounter Care Teams Rfid Manager Relationship Specialty Start Date End Date Jessica Clark MD [address] [place] [address] PCP - General Internal Medicine 10/21/22 documented as of this encounter
--- OUTSIDE RECORDS SUMMARY | 2024-05-17 08:55 | XMS_ITS | Encounter Summary ---
Author Organization [facility] Address [address] [place] [address] Phone Care Team Providers Care Pole Peeling Machine Operator Helper Name Role Phone Jessica Clark MD Primary Care Provider Encounter Details Date Type Department Care Team (Late st Contact Info) Description 12/28/2023 Documentation Only [facility] [address] [place] [address] Tere Shearer [address] [place] [id number] Social History Tobacco Use Types Packs/Day Years [...] Visit [facility] [address] [place] [address] Viraj Rogers MD [address] [place] [address] [place] [address] documented as of this encounter Visit Diagnoses Not on filedocumented in this encounter Care Teams Pole Peeling Machine Operator Helper Relationship Specialty Start Date End Date Jessica Clark MD 1963 [place], [place] [id number] PCP - General Internal Medicine 10/21/22 documented as of this encounter
== END 2024-05-17 09:08 | disposition home or self-care (01) ==
PROVIDERS: PCP Internal Medicine; Visit Provider Internal Medicine
DX: I10 Essential (primary) hypertension (principal); E78.9 Disorder of lipoprotein metabolism, unspecified; G43.919 Migraine, unspecified, intractable, without status migrainosus; I25.10 Atherosclerotic heart disease of native coronary artery without angina pectoris; H91.93 Unspecified hearing loss, bilateral; E66.09 Other obesity due to excess calories; Z68.31 Body mass index [BMI] 31.0-31.9, adult; N28.9 Disorder of kidney and ureter, unspecified; D63.8 Anemia in other chronic diseases classified elsewhere

== ENCOUNTER 2025-01-03 11:40 | Outpatient (AMB) | payer MEDICARE, OTHER, SELFPAY ==
--- NOTE | 2025-01-03 11:44 | AM.OFFVISMDC ---
Intake Vital Signs 01/03/25 11:46 Height 5 ft 5 in Weight 194 lb BMI 32.3 BP 122/70 Blood Pressure Location Lt brachial Position Sitting Pulse 71 Pulse Source Pulse Oximeter Pulse Oximetry (%) 97 Intake Visit Reasons: AWV G0438 Accompanied by: Spouse Allergies sertraline Adverse Reaction (Unknown, Verified 01/03/25 11:46) facial numbness simvastatin Adverse Reaction (Unknown, Verified 01/03/25 11:46) sore muscles Medication List - Last Reconciled 01/03/25 by Jessica Clark MD amitriptyline 10 mg PO BEDTIME 90 days aspirin (Adult Aspirin Regimen) 81 mg PO DAILY atorvastatin 40 mg PO DAILY cyanocobalamin (vitamin B-12) 1,000 mcg PO DAILY 90 days cyanocobalamin (vitamin B-12) 1,000 mcg PO DAILY 90 days hydrochlorothiazide 25 mg PO DAILY lisinopril 20 mg PO DAILY omega-3 fatty acids-fish oil 360-1,200 mg (Fish Oil) 1 cap PO DAILY solifenacin 10 mg PO DAILY Do you need a note to return to daycare/school/sports/work: No HPI AWV G0438 HPI Details History The patient is an 79-year-old male presenting with follow-up and monitoring of existing medical conditions. Hypertension: - Currently managed with lisinopril and hydrochlorothiazide. Managed by Nephrology Hyperlipidemia: - Currently managed with atorvastatin 40 mg. - Last seen by implementation engineer in September of this year, managed by Cardiology. Bladder dysfunction: - Managed with Vesicare. - No recent exacerbations or urinary issues reported. Patient is established with Urology Headaches: - History of headaches following a head injury, managed with amitriptyline; still taking medication. - No recent changes or cessation in medication reported. Headaches are stable Medical History: - obesity - Hypertension - Hyperlipidemia - Bladder dysfunction - Headaches Surgical History: - Cataract surgery and lens implant Medications: - Amitriptyline for headaches - Atorvastatin 40 mg for hyperlipidemia - Vitamin B12 supplementation - Hydrochlorothiazide for hypertension - Lisinopril for hypertension - Vesicare for bladder dysfunction Social History: - Reports being active and continues to drive - Reports mother's history of dementia - Father lived to [facility], with minimal issues Problem List - Essential Hypertension - Hyperlipidemia - Bladder dysfunction - History of headaches - nephropathy - history of NSTEMI - obesity - elevated iron - B12 deficiency [place] of Care - Kidney doctor follow-up in March - Aquatics Assistant Department Head seen in September 2021 Patient Instructions - Proceed with the recommended laboratory tests - Consider scheduling and receiving tetanus, flu, pneumonia, and shingles vaccines - Follow-up on vitamin B12 levels as needed - Monitor blood pressure regularly - Attend upcoming medical appointments as scheduled Telemedicine in 2 weeks to go over labs, Medicare wellness in 1 year Review of Systems General: No fever no chills neurological: No headaches no dizziness ear nose throat: No sore throat no hearing difficulty no ear pain cardiovascular: No syncope, no chest pain, no palpitations gastrointestinal: No nausea vomiting or diarrhea skin: No new complaints Physical Exam general: No acute distress HEENT: No acute findings neck: Supple respiratory system: Able to talk in full sentences, no audible wheeze no stridor cardiovascular: S1-S2 RRR gastrointestinal: No pain extremities: No new findings SEATING AND MOBILITY TECHNOLOGIST: Alert awake oriented x3 motor intact, able to get up without touching anything from chair, balance intact tandem pass skin: Normal turgor HPI Comments History of Present Illness Details AWV Medical/social history reviewed Past medical history reviewed [place] of care / care team list updated Surgical/ hospitalization history reviewed Current medications including OTC and supplements reviewed Family history reviewed Tobacco controlled form updated Alcohol use form updated Illicit drug use in social history reviewed Current diagnosis of depression ?screening updated Appropriate PHQ 2/PHQ-9 completed . Vital signs reviewed Alcohol tobacco drug use reviewed and discussed . MMSE completed . ? Fall risk: ?Assessed Fall history: ?None Have you had any falls with injury in the past year?? No Have you had 2 or more falls in the past year?? No Fall risk assessment completed Home safety discussed with the patient Functional ability assessed and discussed and documented Activities of daily living reviewed and appropriate actions taken . HRA filled out by the patient and reviewed by provider and scanned . Appropriate written screening schedule established . Any health advise needed provided . Advance care planning discussed with the patient , necessary paperwork filled Examination IPPE/AWE: Balance intact Romberg intact Tandem walk failed walk-in turn intact rise from sit to stand intact . ?Hearing ?whisper test failed . Medication list reviewed, patient is stable on medications All other providers patient is seeing discussed and noted . [facility] Medical History Hypertension, essential Lipid disorder Migraine headache Surgical History S/P right coronary artery (RCA) stent placement H/O prostatectomy History of umbilical hernia repair Hx of cholecystectomy Family History Father Skin cancer Lymphoma Mother No problems noted. Daughter Migraine Maternal Grandfather No problems noted. Maternal Grandmother No problems noted. Paternal Grandfather No problems noted. Paternal Grandmother No problems noted. Brother No problems noted. Son No problems noted. Son No problems noted. Social History Housing: House Patient Tobacco Use Status: Former Tobacco user Tobacco use type: Cigar e-Cigarette/Vaping Use: Never Used service: No Current occupational status: retired Cognitive needs: No Hearing needs: Yes Vision needs: Yes Questionnaire Medicare Wellness Checkup What is your age?: 78 or older What gender do you identify with?: male During the past 4 weeks, how much have you been bothered by emotional problems such as feeling anxious, depressed, irritable, sad or downhearted, and blue?: not at all During the past 4 weeks, has your physical & emotional health limited your social activities with family, friends, neighbors, or groups?: not at all During the past 4 weeks, how much bodily pain have you generally had?: very mild pain During the past 4 weeks, was someone available to help you if you needed & wanted help?: no, not at all During the past 4 weeks, what was the hardest physical activity you could do for at least 2 minutes?: heavy Can you get to places out of walking distance without help? (For eg., can you travel alone on buses, taxis or drive your car?): Yes Can you go shopping for groceries or clothes without someone's help?: Yes Can you prepare your own meals?: Yes Can you do your housework without help?: Yes Because of any health problems, do you need the help of another person with your personal care needs such as eating, bathing, dressing or getting around the house?: No Can you handle your own money without help?: Yes During the past 4 weeks, how would you rate your health in general?: very good During the past 4 weeks how have things been going for you?: pretty well Are you having difficulties driving your car?: no Do you always fasten your seat belt when you are in a car?: no During past 4 weeks, have you been bothered by the following: never: Falling or dizzy when standing up, Sexual problems?, Trouble eating well?, Teeth or denture problems? and Problems using the telephone? and seldom: Tiredness or fatigue? Have you fallen 2 or more times in the past year?: No Are you afraid of falling?: No Are you a smoker?: no During the past 4 weeks, how many drinks of wine, beer, or other alcoholic beverages did you have?: no alcohol at all Do you exercise for about 20 minutes 3 or more times a week?: yes, some of the time Have you been given information to help with the following?: no: Hazards in your house that might hurt you? and no: Keeping track of your medications? How often do you have trouble taking medicines the way you have been told to take them?: I always take medicine as prescribed How confident are you that you can control & manage most of your health problems?: very confident What is your race?: White Mini Mental State Exam (MMSE) Orientation What is the (year) (season) (date) (day) (month)?: year, season, date, day and month Where are we (state) (county) (town or city) (hospital) (floor)?: state, county, town or city, hospital/clinic and floor Score Score: 10 Activity of Daily Living Bathing - sponge bath, tub bath or shower: receives no assistance (gets in/out by self, if usual bathing means Dressing - getting clothes from closets & drawers, including inner/outer garments & fasteners.: gets clothes & gets completely dressed without help Toileting - going to the 'toilet room' for urine/bowel elimination & cleaning self/arranging clothes: goes to toilet room, cleans self, arranges clothes without help Transfer: moves in & out of bed and chair without help (may use support object) Continence: controls urination/bowel movements completely by self Feeding: feeds self without help Total Score: 0 Information obtained from: patient Using telephone: independent Traveling: independent Shopping: independent Preparing meals: needs assistance Housework: independent Taking medicine: independent Managing money: independent PHQ-9 Over the last 2 weeks, how often have you been bothered by any of the following problems? 1. Little interest or pleasure in doing things: not at all 2. Feeling down, depressed, or hopeless: not at all 3. Trouble falling or staying asleep, or sleeping too much: several days 4. Feeling tired or having little energy: several days 5. Poor appetite or overeating: not at all 6. Feeling bad about yourself - or that you are a failure or have let yourself or your family down: not at all 7. Trouble concentrating on things, such as reading the newspaper or watching television: not at all 8. Moving or speaking so slowly that other people could have noticed. Or the opposite - being so fidgety or restless that you have been moving around a lot more than usual: not at all 9. Thoughts that you would be better off or of hurting yourself in some way: not at all Total score: 2 Depression Screening Interpretation: Negative Depression Screening Done: Yes 60478 - PHQ-9 Billing: Yes Source: Developed by Drs. Stu Hurt, Jaquelin Tse, Dhiraj Bar and colleagues, with an educational nilo from [employer]. Physical Exam Vital Signs: Last Vital Signs Pulse 71 01/03/25 11:46 BP 122/70 01/03/25 11:46 Pulse Ox 97 01/03/25 11:46 BMI result Body Mass Index 32.3 Assessment & Plan Assessment & Plan (1) Medicare annual wellness visit, initial: Code(s): Z00.00 - Encounter for general adult medical examination without abnormal findings (2) Hypertension, essential: Code(s): I10 - Essential (primary) hypertension (3) Coronary artery disease: Code(s): I25.10 - Atherosclerotic heart disease of [place] coronary artery without angina pectoris Qualifiers: Associated angina: without angina Coronary Disease-Associated Artery/Lesion type: [place] artery [place] vs. transplanted heart: [place] heart Qualified Code(s): I25.10 - Atherosclerotic heart disease of [place] coronary artery without angina pectoris (4) Lipid disorder: Code(s): E78.9 - Disorder of lipoprotein metabolism, unspecified (5) Obesity due to excess calories: Code(s): E66.09 - Other obesity due to excess calories Qualifiers: Body mass index: BMI 31.0-31.9 Obesity classification: adult class 1 (BMI 30 - 34.9) Serious obesity comorbidity presence: with serious comorbidity Qualified Code(s): E66.09 - Other obesity due to excess calories; Z68.31 - Body mass index [BMI] 31.0-31.9, adult (6) Nephropathy: Code(s): N28.9 - Disorder of kidney and ureter, unspecified (7) Anemia of chronic disease: Code(s): D63.8 - Anemia in other chronic diseases classified elsewhere (8) Migraine headache: Code(s): G43.909 - Migraine, unspecified, not intractable, without status migrainosus Qualifiers: Intractability: intractable Migraine type: unspecified Status migrainosus presence: without status migrainosus Qualified Code(s): G43.919 - Migraine, unspecified, intractable, without status migrainosus (9) Elevated ferritin: Code(s): R79.89 - Other specified abnormal findings of blood chemistry (10) B12 deficiency: Code(s): E53.8 - Deficiency of other specified B group vitamins Plan History The patient is an 79-year-old male presenting with follow-up and monitoring of existing medical conditions. Hypertension: - Currently managed with lisinopril and hydrochlorothiazide. Managed by Nephrology Hyperlipidemia: - Currently managed with atorvastatin 40 mg. - Last seen by implementation engineer in September of this year, managed by Cardiology. Bladder dysfunction: - Managed with [facility]icare. - No recent exacerbations or urinary issues reported. Patient is established with Urology Headaches: - History of headaches following a head injury, managed with amitriptyline; still taking medication. - No recent changes or cessation in medication reported. Headaches are stable Medical History: - obesity - Hypertension - Hyperlipidemia - Bladder dysfunction - Headaches Surgical History: - Cataract surgery and lens implant Medications: - Amitriptyline for headaches - Atorvastatin 40 mg for hyperlipidemia - Vitamin B12 supplementation - Hydrochlorothiazide for hypertension - Lisinopril for hypertension - Vesicare for bladder dysfunction Social History: - Reports being active and continues to drive - Reports mother's history of dementia - Father lived to [facility], with minimal issues Problem List - Essential Hypertension - Hyperlipidemia - Bladder dysfunction - History of headaches - nephropathy - history of NSTEMI - obesity - elevated iron - B12 deficiency [place] of Care - Kidney doctor follow-up in March - Aquatics Assistant Department Head seen in September 2021 Patient Instructions - Proceed with the recommended laboratory tests - Consider scheduling and receiving tetanus, flu, pneumonia, and shingles vaccines - Follow-up on vitamin B12 levels as needed - Monitor blood pressure regularly - Attend upcoming medical appointments as scheduled Telemedicine in 2 weeks to go over labs, Medicare wellness in 1 year Orders: Orders Comprehensive Met. Panel Today D63.8 - Anemia in other chronic diseases classified elsewhere, E66.09 - Other obesity due to excess calories, E78.9 - Disorder of lipoprotein metabolism, unspecified, G43.919 - Migraine, unspecified, intractable, without status migrainosus, I10 - Essential (primary) hypertension, I25.10 - Atherosclerotic heart disease of [place] coronary artery without angina pectoris, N28.9 - Disorder of kidney and ureter, unspecified, Z68.31 - Body mass index [BMI] 31.0-31.9, adult Ferritin Today D63.8 - Anemia in other chronic diseases classified elsewhere, E66.09 - Other obesity due to excess calories, E78.9 - Disorder of lipoprotein metabolism, unspecified, G43.919 - Migraine, unspecified, intractable, without status migrainosus, I10 - Essential (primary) hypertension, I25.10 - Atherosclerotic heart disease of [place] coronary artery without angina pectoris, N28.9 - Disorder of kidney and ureter, unspecified, Z68.31 - Body mass index [BMI] 31.0-31.9, adult Vitamin B12 Today D63.8 - Anemia in other chronic diseases classified elsewhere, E66.09 - Other obesity due to excess calories, E78.9 - Disorder of lipoprotein metabolism, unspecified, G43.919 - Migraine, unspecified, intractable, without status migrainosus, I10 - Essential (primary) hypertension, I25.10 - Atherosclerotic heart disease of [place] coronary artery without angina pectoris, N28.9 - Disorder of kidney and ureter, unspecified, Z68.31 - Body mass index [BMI] 31.0-31.9, adult Hemoglobin A1c Today D63.8 - Anemia in other chronic diseases classified elsewhere, E66.09 - Other obesity due to excess calories, E78.9 - Disorder of lipoprotein metabolism, unspecified, G43.919 - Migraine, unspecified, intractable, without status migrainosus, I10 - Essential (primary) hypertension, I25.10 - Atherosclerotic heart disease of [place] coronary artery without angina pectoris, N28.9 - Disorder of kidney and ureter, unspecified, Z68.31 - Body mass index [BMI] 31.0-31.9, adult Complete Blood Count Auto Diff Today D63.8 - Anemia in other chronic diseases classified elsewhere, E66.09 - Other obesity due to excess calories, E78.9 - Disorder of lipoprotein metabolism, unspecified, G43.919 - Migraine, unspecified, intractable, without status migrainosus, I10 - Essential (primary) hypertension, I25.10 - Atherosclerotic heart disease of [place] coronary artery without angina pectoris, N28.9 - Disorder of kidney and ureter, unspecified, Z68.31 - Body mass index [BMI] 31.0-31.9, adult LDL Cholesterol Direct Today D63.8 - Anemia in other chronic diseases classified elsewhere, E66.09 - Other obesity due to excess calories, E78.9 - Disorder of lipoprotein metabolism, unspecified, G43.919 - Migraine, unspecified, intractable, without status migrainosus, I10 - Essential (primary) hypertension, I25.10 - Atherosclerotic heart disease of [place] coronary artery without angina pectoris, N28.9 - Disorder of kidney and ureter, unspecified, Z68.31 - Body mass index [BMI] 31.0-31.9, adult Vitamin D 25-OH (D2 and D3) Today D63.8 - Anemia in other chronic diseases classified elsewhere, E66.09 - Other obesity due to excess calories, E78.9 - Disorder of lipoprotein metabolism, unspecified, G43.919 - Migraine, unspecified, intractable, without status migrainosus, I10 - Essential (primary) hypertension, I25.10 - Atherosclerotic heart disease of [place] coronary artery without angina pectoris, N28.9 - Disorder of kidney and ureter, unspecified, Z68.31 - Body mass index [BMI] 31.0-31.9, adult TSH reflex Free T4 Today D63.8 - Anemia in other chronic diseases classified elsewhere, E66.09 - Other obesity due to excess calories, E78.9 - Disorder of lipoprotein metabolism, unspecified, G43.919 - Migraine, unspecified, intractable, without status migrainosus, I10 - Essential (primary) hypertension, I25.10 - Atherosclerotic heart disease of [place] coronary artery without angina pectoris, N28.9 - Disorder of kidney and ureter, unspecified, Z68.31 - Body mass index [BMI] 31.0-31.9, adult Quality Reporting (2019) Depression/Bipolar (159/160/161/177) PHQ-9: Total score: 2 Coding Level of Care Code Medicare First (G0438) Est Pt Level 4 (77050) Diagnoses Medicare annual wellness visit, initial Z00.00 Hypertension, essential I10 Coronary artery disease involving [place] coronary artery of [place] heart without angina pectoris I25.10 Associated angina: without angina Coronary Disease-Associated Artery/Lesion type: [place] artery [place] vs. transplanted heart: [place] heart Lipid disorder E78.9 Class 1 obesity due to excess calories with serious comorbidity and body mass index (BMI) of 31.0 to 31.9 in adult E66.09; Z68.31 Body mass index: BMI 31.0-31.9 Obesity classification: adult class 1 (BMI 30 - 34.9) Serious obesity comorbidity presence: with serious comorbidity Nephropathy N28.9 Anemia of chronic disease D63.8 Intractable migraine without status migrainosus, unspecified migraine type G43.919 Intractability: intractable Migraine type: unspecified Status migrainosus presence: without status migrainosus Elevated ferritin R79.89 B12 deficiency E53.8 CPT Codes Advance Care Planning - Time spent: 16-45 minutes ([id number]) Additional Codes PHQ-9 - 45036 - PHQ-9 Billing: Yes ([id number]) Advance Care Planning Advance Care Planning discussion: Completed/Scanned Forms completed: Health Care Proxy and MOLST Time spent: 16-45 minutes
[2025-01-03 11:46] VITALS: BP 122/70; PULSE 71; O2SAT 97; BMI 32.3
--- OUTSIDE RECORDS SUMMARY | 2025-01-03 14:53 | XMS_ITS | Clinical Summary ---
Author Organization [facility] Address [address] [place] [address] Care Team Providers Care Route Vending Machine Servicer Name Role Phone Unavailable Primary Care Provider Unavailabl e Source Comments PLEASE NOTE, if this patient is a minor, it may be UNLAWFUL to discuss sensitive information that is contained in these records (such as FAMILY PLANNING, MENTAL HEALTH or SUBSTANCE ABUSE) with the minor patient's parent or other person without the patient's specific authorization.[facility] Immunizations Immunization Administration Dates Next Due Moderna COVID-19 Vaccine, [...] Visit 1963 Imm-DTaP/Tdap/Td (1 - Tdap) 1962 Imm-Pneumococcal 50+ (1 of 1 - PCV) 1993 Imm-Zoster, Recombinant (1 of 2) 1993 Falls Prevention 2008 Imm-RSV (adult) (1 - 1-dose 75+ series) 2018 Alcohol and Drug Screen 04/26/2024 Depression Annual Screen 04/26/2024 [id number] (3 2024- season) 2024 04/14/2 021, 07/10/2020 Imm-Influenza (#1) 2024 [place] - [place]
--- OUTSIDE RECORDS SUMMARY | 2025-01-03 14:53 | XMS_ITS | Encounter Summary ---
Author Organization [facility] Address [address] [place] [address] Phone Care Team Providers Care Director Television Name Role Phone Jessica Clark MD Primary Care Provider [phone] Encounter Details Date Type Department Care Team (Late st Contact Info) Description 12/28/2023 Documentation Only [facility] [address] [place] [address] Tere Shearer [address] [place] [phone] Social History Tobacco Use Types Packs/Day Years Used Date Smoking Tobacco: Unknown Sex and Gender Information Value Date Recorded Sex Assigned at Not on file Legal Sex Male 10:07 AM EDT Gender Identity Not on file Sexual Orientation Not on file documented as of this encounter Plan of Treatment Upcoming Encounters Date Type Department Care Team (Late st Contact Info) Description 2025 9:10 AM EST Office Visit [facility] [address] [place] [address] Viraj Rogers MD [address] [place] [address] [place] [address] documented as of this encounter Visit Diagnoses Not on filedocumented in this encounter Care Teams Director Television Relationship Specialty Start Date End Date Jessica Clark MD [address] [place], [place] [id number] PCP - General Internal Medicine 10/21/22 documented as of this encounter
--- OUTSIDE RECORDS SUMMARY | 2025-01-03 14:53 | XMS_ITS | Encounter Summary ---
Author Organization [facility] Address [address] [place] [address] Phone Care Team Providers Care Head Of Business Development Name Role Phone Jessica Clark MD Primary Care Provider [phone] Encounter Details Date Type Department Care Team (Late st Contact Info) Description 10/21/2022 Documentation Only [facility] [address] [place] [address] Jessica Clark MD [address] [place] [address] Social History Tobacco Use Types Packs/Day Years [...] Visit [facility] [address] [place] [address] Viraj Rogers MD [address] [place] [address] [place] [address] documented as of this encounter Visit Diagnoses Not on filedocumented in this encounter Care Teams Head Of Business Development Relationship Specialty Start Date End Date Jessica Clark MD [address] [place] [address] PCP - General Internal Medicine 10/21/22 documented as of this encounter
--- OUTSIDE RECORDS SUMMARY | 2025-01-03 14:53 | XMS_ITS | Clinical Summary ---
Author Organization [facility] Address [address] [place] [place] [address] Phone Care Team Providers Care Telepathist Name Role Phone Jessica Clark MD Primary Care Provider [phone] Allergies No known active allergies Medications amitriptyline [...] Encounters Date Type Department Care Team Description 12/06/2024 9:00 AM EDT Office Visit [facility], [address] [place] [address] Viraj Rogers MD Stage 3b chronic kidney [...] Visit [facility], [address] [place] [address] Viraj Rogers MD [address] [place] [address] [place] [address] Health Maintenance Due Date Last Done Comments Pneumococcal Vaccine: 50+ Ye ars (1 of 2 - PCV) 1964 Influenza Vaccine (#1) 2024 Hepatitis B Vaccine Aged Out No longe r eligible based on patient's age to complete this topic Procedures Procedure Name Priority Date/Time Associated Diagnosis Comments ALBUMIN Routine 12/12/2024 1:40 PM EDT PHOSPHATE ( PHOSPHORUS) Routine 12/12/2024 1:40 PM EDT URINE ALBUMIN / CREATININE RATIO Routine 12/12/2024 1:40 PM EDT BASIC METABOLIC PANEL Routine 12/12/2024 1:40 PM EDT CBC Routine 12/12/2024 1:40 PM EDT URINALYSIS WITH MICROSCOPIC Routine 12/12/2024 1:40 PM EDT MICROSCOPIC EXAMINATION - DO NOT USE Routine 12/12/2024 1:40 PM EDT from Last 3 Months Results * Microscopic Examination (12/12/2024 1:40 PM EDT) WBC, Urine 0-5 0 - 5 /hpf [facility] RBC, Urine 0-2 0 - 2 /hpf [facility] Squamous Epithelial, Urine 0-10 0 - 10 /hpf [facility] Casts None seen None seen /lpf [facility] Bacteria, Urine None seen None seen/Few [facility] 12/12/2024 1:40 PM EDT 12/12/2024 Viraj Rogers MD LAB MICROBIOLOGY - GENERAL OR DERABLES Final Result [facility] [address] [place] [phone] * Urine Albumin / Creatinine Ratio (12/12/2024 1:40 PM EDT) Creatinine, Ur 294.6 Not Estab. mg/dL [facility] Albumin, Urine 13.9 Not Estab. ug/mL [facility] Albumin/Creatin ine Ratio 5 0 - 29 mg/g creat [facility] Comment: Normal: 0 - 29 Moderately increased: 30 - 300 Severely increased: >300 12/12/2024 1:40 PM EDT 12/12/2024 Viraj Rogers MD LAB URINE ORDERABLES Final Re sult [facility] [address] [place] [address] * (ABNORMAL) Urinalysis with microscopic (12/12/2024 1:40 PM EDT) Specific [place], Urine 1.026 1.005 - 1.030 [facility] pH Urine 5.5 5.0 - 7.5 [facility] Color, Urine Yellow Yellow [facility] Appearance Urine Clear Clear [facility] [phone] WBC Esterase Urine Negative Negative [facility] [phone] Protein, Ur Trace Negative/Tra ce [facility] Glucose, Ur Negative Negative [facility] [phone] Ketones, Urine Trace(A) Negative [facility] [phone] Blood Urine Negative Negative [facility] Bilirubin Urine Negative Negative [facility] Urobilinogen Urine 1.0 0.2 - 1.0 mg/dL [facility] Nitrite, Urine Negative Negative [facility] Microscopic Examination Comment [facility] Comment:Microscopic follows if indicated. Other Microsc. Observations See below: [facility] Comment:Microscopic was justin cated and was performed. 12/12/2024 1:40 PM EDT 12/12/2024 us Viraj Rogers MD LAB URINE ORDERABLES Final Re sult [facility] [address] [place] [address] * CBC (12/12/2024 1:40 PM EDT) WBC 10.6 3.4 - 10.8 x10E3/uL [facility] RBC 4.55 4.14 - 5.80 x10E6/uL [facility] Hemoglobin 13.6 13.0 - 17.7 g/dL [facility] Hematocrit 40.9 37.5 - 51.0 % [facility] MCV 90 79 - 97 fL [facility] MCH 29.9 26.6 - 33.0 pg [facility] MCHC 33.3 31.5 - 35.7 g/dL [facility] RDW 13.9 11.6 - 15.4 % [facility] Platelets 301 150 - 450 x10E3/uL [facility] 12/12/2024 1:40 PM EDT 12/12/2024 Viraj Rogers MD LAB BLOOD ORDERABLES Final Re sult [facility] [address] [place] [address] * (ABNORMAL) Phosphorus (12/12/2024 1:40 PM EDT) Phosphorus 2.4(L) 2.8 - 4.1 mg/dL [facility] 12/12/2024 1:40 PM EDT 12/12/2024 Viraj Rogers MD LAB BLOOD ORDERABLES Final Re sult [facility] [address] [place] [address] * Albumin (12/12/2024 1:40 PM EDT) Albumin 4.1 3.7 - 4.7 g/dL [facility] 12/12/2024 1:40 PM EDT 12/12/2024 Viraj Rogers MD LAB BLOOD ORDERABLES [facility] [address] [place] [address] * (ABNORMAL) Basic Metabolic Panel (12/12/2024 1:40 PM EDT) Glucose 165(H) 70 - 99 mg/dL [facility] BUN 18 8 - 27 mg/dL [facility] Creatinine 1.09 0.76 - 1.27 mg/dL [facility] eGFR CKD-EPI CR 2020 68 >59 mL/min/1.7 3 [facility] BUN/Creatinine Ratio 17 10 - 24 [facility] Sodium 139 134 - 144 mmol/L [facility] Potassium 3.4(L) 3.5 - 5.2 mmol/L [facility] Chloride 100 96 - 106 mmol/L [facility] Bicarbonate (CO2) 21 20 - 29 mmol/L [facility] Calcium 9.0 8.6 - 10.2 mg/dL [facility] 12/12/2024 1:40 PM EDT 12/12/2024 Viraj Rogers MD LAB BLOOD ORDERABLES Final Re [facility]ult [facility] [address] [place] [address] from Last 3 Months Insurance [place] [address] Care Teams Telepathist Relationship Specialty Start Date End Date Jessica Clark MD [facility] [place] [address] PCP - General Internal Medicine 10/21/22
--- OUTSIDE RECORDS SUMMARY | 2025-01-03 14:53 | XMS_ITS | Encounter Summary ---
Author Organization [facility] Address [address] [place] [address] Phone Care Team Providers Care M1A1 Tank Crewman Name Role Phone Jessica Clark MD Primary Care Provider [phone] Encounter Details Date Type Department Care Team (Late st Contact Info) Description 10/22/2022 Documentation Only [facility] [address] [place] [address] Jessica Clark MD [address] [place] [address] Social History Tobacco Use Types Packs/Day Years [...] Visit [facility] [address] [address] Viraj Rogers MD [address] [place] [address] [place] [address] documented as of this encounter Visit Diagnoses Not on filedocumented in this encounter Care Teams M1A1 Tank Crewman Relationship Specialty Start Date End Date Jessica Clark MD [address] [place] [address] PCP - General Internal Medicine 10/21/22 documented as of this encounter
== END 2025-01-03 12:17 | disposition home or self-care (01) ==
LOC: HO.HMCC 11:41
PROVIDERS: PCP Internal Medicine; Visit Provider Internal Medicine
DX: Z00.00 Encounter for general adult medical examination without abnormal findings (principal); I10 Essential (primary) hypertension; I25.10 Atherosclerotic heart disease of native coronary artery without angina pectoris; E66.09 Other obesity due to excess calories; Z68.31 Body mass index [BMI] 31.0-31.9, adult; E78.9 Disorder of lipoprotein metabolism, unspecified; N28.9 Disorder of kidney and ureter, unspecified; D63.8 Anemia in other chronic diseases classified elsewhere; G43.919 Migraine, unspecified, intractable, without status migrainosus; R79.89 Other specified abnormal findings of blood chemistry; E53.8 Deficiency of other specified B group vitamins

== ENCOUNTER → 2025-01-03 11:40 | Outpatient (BNVA) | payer MEDICARE, OTHER, SELFPAY | PROVIDERS: PCP Internal Medicine; Visit Provider Internal Medicine | DX: Z00.00 Encounter for general adult medical examination without abnormal findings (principal); I25.10 Atherosclerotic heart disease of native coronary artery without angina pectoris; E66.09 Other obesity due to excess calories; E66.811 Obesity, class 1; I10 Essential (primary) hypertension; E78.5 Hyperlipidemia, unspecified; N28.9 Disorder of kidney and ureter, unspecified; G43.919 Migraine, unspecified, intractable, without status migrainosus; R79.89 Other specified abnormal findings of blood chemistry; E53.8 Deficiency of other specified B group vitamins; Z68.31 Body mass index [BMI] 31.0-31.9, adult | CPT/HCPCS: 96127; 99212 ==

== ENCOUNTER 2025-01-04 08:52 | Outpatient (REF) | payer MEDICARE, OTHER, SELFPAY ==
--- OUTSIDE RECORDS SUMMARY | 2025-01-04 10:01 | XMS_ITS | Clinical Summary ---
Author Organization [facility] Address [address] [place] [address] Care Team Providers Care Land Surveying Party Chief Name Role Phone Unavailable Primary Care Provider [...] Drug Screen 04/26/2024 Depression Annual Screen 04/26/2024 [id number] (3 2024- season) 2024 04/14/2 021, 07/10/2020 Imm-Influenza (#1) 2024 Insurance [place]ARE - [place]
--- OUTSIDE RECORDS SUMMARY | 2025-01-04 10:01 | XMS_ITS | Encounter Summary ---
Author Organization [facility] Address [address] [place] [address] Phone Care Team Providers Care Cold Patcher Name Role Phone Jessica Clark MD Primary Care Provider [phone] Encounter Details Date Type Department Care Team (Late st Contact Info) Description 10/21/2022 Documentation Only [facility] [address] [place] [address] Jessica Clark MD [address] [place] [address] Social History Tobacco Use Types Packs/Day Years [...] Visit [facility] [address] [place] [address] Viraj Rogers MD [address] [place] [address] [place] [address] documented as of this encounter Visit Diagnoses Not on filedocumented in this encounter Care Teams Cold Patcher Relationship Specialty Start Date End Date Jessica Clark MD [address] [place] [address] PCP - General Internal Medicine 10/21/22 documented as of this encounter
--- OUTSIDE RECORDS SUMMARY | 2025-01-04 10:01 | XMS_ITS | Encounter Summary ---
Author Organization [facility] Address [address] [place] [address] Phone Care Team Providers Care Roustabout Head Name Role Phone Jessica Clark MD Primary Care Provider [phone] Encounter Details Date Type Department Care Team (Late st Contact Info) Description 10/22/2022 Documentation Only [facility] [address] [place] [address] Jessica Clark MD [address] [place] [address] Social History Tobacco Use Types Packs/Day Years [...] [facility] [address] [place] [address] Viraj Rogers MD [address] [place] [address] [place] [address] documented as of this encounter Visit Diagnoses Not on filedocumented in this encounter Care Teams Roustabout Head Relationship Specialty Start Date End Date Jessica Clark MD [address] [place] [address] PCP - General Internal Medicine 10/21/22 documented as of this encounter
--- OUTSIDE RECORDS SUMMARY | 2025-01-04 10:01 | XMS_ITS | Clinical Summary ---
Author Organization [facility] Address [address] [place] [address] Phone Care Team Providers Care Car Tracer Name Role Phone Jessica Clark MD Primary Care Provider Allergies No known active allergies Medications amitriptyline [...] Visit [facility] [place], [address] [place] [address] Viraj Rogers MD Stage 3b chronic kidney [...] Visit [facility] [place], [address] [address] Viraj Rogers MD [address] [place] [address] [place] [address] Health Maintenance Due Date Last Done Comments [...] Urine 0-5 0 - 5 /hpf [facility] RBC, Urine 0-2 0 - 2 /hpf [facility] Squamous Epithelial, Urine 0-10 0 - 10 /hpf [facility] Casts None seen None seen /lpf [facility] Bacteria, Urine None seen None seen/Few [facility] 12/12/2024 1:40 PM EDT 12/12/2024 Viraj Rogers MD LAB MICROBIOLOGY - GENERAL OR DERABLES Final Result [facility] [address] [place] [address] * Urine Albumin / Creatinine Ratio (12/12/2024 1:40 PM EDT) Creatinine, Ur 294.6 Not Estab. mg/dL [facility] Albumin, Urine 13.9 Not Estab. ug/mL [facility] Albumin/Creatin ine Ratio 5 0 - 29 mg/g creat [facility] Comment: Normal: 0 - 29 Moderately increased: 30 - 300 Severely increased: >300 12/12/2024 1:40 PM EDT 12/12/2024 Viraj Rogers MD LAB URINE ORDERABLES Final Re sult [facility] [address] [place] [address] * (ABNORMAL) Urinalysis with microscopic (12/12/2024 1:40 PM EDT) Specific [place], Urine 1.026 1.005 - 1.030 [facility] pH Urine 5.5 5.0 - 7.5 [facility] [phone] Color, Urine Yellow Yellow [facility] Appearance Urine Clear Clear [facility] WBC Esterase Urine Negative Negative [facility] Protein, Ur Trace Negative/Tra ce [facility] Glucose, Ur Negative Negative [facility] Ketones, Urine Trace(A) Negative [facility] Blood Urine Negative Negative [facility] Bilirubin Urine Negative Negative [facility] Urobilinogen Urine 1.0 0.2 - 1.0 mg/dL [facility] Nitrite, Urine Negative Negative [facility] Microscopic Examination Comment [facility] Comment:Microscopic follows if indicated. Other Microsc. Observations See below: [facility] [phone] Comment:Microscopic was justin cated and was performed. 12/12/2024 1:40 PM EDT 12/12/2024 us Viraj Rogers MD LAB URINE ORDERABLES Final Re sult [facility] [address] [place] [address] * CBC (12/12/2024 1:40 PM EDT) WBC 10.6 3.4 - 10.8 x10E3/uL [facility] RBC 4.55 4.14 - 5.80 x10E6/uL [facility] Hemoglobin 13.6 13.0 - 17.7 g/dL [facility] Hematocrit 40.9 37.5 - 51.0 % [facility] MCV 90 79 - 97 fL [facility] MCH 29.9 26.6 - 33.0 pg [facility] MCHC 33.3 31.5 - 35.7 g/dL [facility] RDW 13.9 11.6 - 15.4 % [facility] Platelets 301 150 - 450 x10E3/uL [facility] 12/12/2024 1:40 PM EDT 12/12/2024 Viraj Rogers MD LAB BLOOD ORDERABLES Final Re sult [facility] [address] [place] [address] * (ABNORMAL) Phosphorus (12/12/2024 1:40 PM EDT) Phosphorus 2.4(L) 2.8 - 4.1 mg/dL [facility] 12/12/2024 1:40 PM EDT 12/12/2024 Viraj Rogers MD LAB BLOOD ORDERABLES Final Re sult [facility] [address] [place] [address] * Albumin (12/12/2024 1:40 PM EDT) Albumin 4.1 3.7 - 4.7 g/dL [facility] 12/12/2024 1:40 PM EDT 12/12/2024 Viraj Rogers MD LAB BLOOD ORDERABLES [facility] [address] [place] [address] * (ABNORMAL) Basic Metabolic Panel (12/12/2024 1:40 PM EDT) Glucose 165(H) 70 - 99 mg/dL [facility] BUN 18 8 - 27 mg/dL [facility] Creatinine 1.09 0.76 - 1.27 mg/dL [facility] eGFR CKD-EPI CR 2020 68 >59 mL/min/1.7 3 [facility] BUN/Creatinine Ratio 17 10 - 24 [facility] Sodium 139 134 - 144 mmol/L [facility] Potassium 3.4(L) 3.5 - 5.2 mmol/L [facility] Chloride 100 96 - 106 mmol/L [facility] Bicarbonate (CO2) 21 20 - 29 mmol/L [facility] Calcium 9.0 8.6 - 10.2 mg/dL [facility] 12/12/2024 1:40 PM EDT 12/12/2024 Viraj Rogers MD LAB BLOOD ORDERABLES Final Re sult [facility] [address] [place] [address] from Last 3 Months Insurance Medicare [facility] [place] [address] Care Teams Car Tracer Relationship Specialty Start Date End Date Jessica Clark MD [facility] [address] PCP - General Internal Medicine 10/21/22
--- OUTSIDE RECORDS SUMMARY | 2025-01-04 10:02 | XMS_ITS | Encounter Summary ---
Author Organization [facility] Address [address] [place] [address] Phone Care Team Providers Care Commercial Sheet Metal Foreman Name Role Phone Jessica Clark MD Primary Care Provider [phone] Encounter Details Date Type Department Care Team (Late st Contact Info) Description 12/28/2023 Documentation Only [facility] [address] [place] [address] Tere Shearer [address] [place] [phone] Social History Tobacco Use Types Packs/Day Years [...] Visit [facility] [address] [place] [address] Viraj Rogers MD [address] [place] [address] [place] [address] documented as of this encounter Visit Diagnoses Not on filedocumented in this encounter Care Teams Commercial Sheet Metal Foreman Relationship Specialty Start Date End Date Jessica Clark MD [address] [place], [place] [id number] PCP - General Internal Medicine 10/21/22 documented as of this encounter
[2025-01-04 10:09] LABS: MANUAL DIFF FLAG NO
[2025-01-04 10:10] LABS: Hematocrit 39.8 % (42.0-52.0); Hemoglobin 13.5 g/dl (14.0-18.0); Imm Gran Abs Auto 0.02 X10*3/uL (0.00-0.03); Imm Gran Pct Auto 0.2 % (0.0-0.4); Lymphocytes Absolute Auto 2.3 X10*3/uL (1.2-4.9); Mean Corpuscular HGB Conc 33.9 g/dl (31.0-36.0); Mean Corpuscular Hemoglobin 29.2 pg (27.0-33.0); Mean Corpuscular Volume 86.1 fL (80.0-98.0); NRBC Abs Auto 0.000 X10*3/uL (0.0-0.012); NRBC Pct Auto 0.0 /100WBC (0.0-0.2); Platelet Count 300 X10*3/uL (160-400); Red Blood Count 4.62 X10*6/uL (4.60-5.80); White Blood Count 8.0 X10*3/uL (4.8-10.8)
[2025-01-04 10:24] LABS: Hemoglobin A1C 172.4526 umol/L; Total Hemoglobin (HGBA1C) 3464.3338 umol/L
[2025-01-04 11:49] LABS: Alanine Aminotransferase 22 U/L (0-40); Albumin Level 4.2 g/dL (3.5-5.0); Alkaline Phosphatase 82 U/L (39-117); Anion Gap 14 (12-20); Aspartate Amino Transferase 21 U/L (5-37); Blood Urea Nitrogen 22 mg/dL (9-16); Calcium 8.9 mg/dL (8.4-10.2); Carbon Dioxide 28 mmol/L (22-29); Chloride 103 mmol/L (96-108); Estimated Glomerular Filt Rate > 60; Potassium 4.1 mmol/L (3.3-5.1); Sodium 141 mmol/L (135-145); Total Protein 6.5 g/dL (6.5-8.0)
[2025-01-04 12:08] LABS: Ferritin 253 ng/mL (20-250)
[2025-01-04 12:09] LABS: Vitamin B12 720 pg/mL (200-900)
[2025-01-09 16:34] LABS: Vitamin D 25-OH, D2 <4 ng/mL; Vitamin D 25-OH, D3 20 ng/mL; Vitamin D 25-OH, Total 20 ng/mL (30-100)
== END 2025-01-04 08:53 | disposition home or self-care (01) ==
LOC: HO.HMGCLDS 08:52
PROVIDERS: PCP Internal Medicine; Visit Provider Internal Medicine
DX: I10 Essential (primary) hypertension (principal); I25.10 Atherosclerotic heart disease of native coronary artery without angina pectoris; E78.9 Disorder of lipoprotein metabolism, unspecified; E66.09 Other obesity due to excess calories; Z68.31 Body mass index [BMI] 31.0-31.9, adult; N28.9 Disorder of kidney and ureter, unspecified; D63.8 Anemia in other chronic diseases classified elsewhere; G43.919 Migraine, unspecified, intractable, without status migrainosus; Z13.1 Encounter for screening for diabetes mellitus
CPT/HCPCS: 36415; 80053; 82306; 82607; 82728; 83036; 83721; 84443; 85025

== ENCOUNTER 2025-01-18 08:45 | Outpatient (AMB) | payer MEDICARE, OTHER, SELFPAY ==
--- NOTE | 2025-01-18 09:13 | A.OFFPC_ITS ---
Intake Visit Reasons: 2 weeks f/up Allergies sertraline Adverse Reaction (Unknown, Verified 01/03/25 11:46) facial numbness simvastatin Adverse Reaction (Unknown, Verified 01/03/25 11:46) sore muscles Medication List - Last Reconciled 01/18/25 by Jessica Clark MD amitriptyline 10 mg PO BEDTIME 90 days aspirin (Adult Aspirin Regimen) 81 mg PO DAILY atorvastatin 40 mg PO DAILY cyanocobalamin (vitamin B-12) 1,000 mcg PO DAILY 90 days cyanocobalamin (vitamin B-12) 1,000 mcg PO DAILY 90 days hydrochlorothiazide 25 mg PO DAILY lisinopril 20 mg PO DAILY omega-3 fatty acids-fish oil 360-1,200 mg (Fish Oil) 1 cap PO DAILY solifenacin 10 mg PO DAILY Tobacco use date assessed: 05/17/24 Dental Screening Dental Screen Date: 05/17/24 HPI 2 weeks f/up HPI Details History of Present Illness The patient is an 79-year-old male presenting with changes in diabetic status, vitamin D deficiency, and anemia. Diabetes: - Recently diagnosed as diabetic with a hemoglobin A1c level that has reached 6.7%. - Previously considered prediabetic. - No significant lifestyle changes repor jose that might have influenced the reduction in sugar levels. - Acknowledgment from the patient of con suming high sugar foods such as candy. Vitamin D Deficiency: - Vitamin D levels remain low. - The patient is aware of the deficiency and currently seems mistaken about taking a vitamin B12 supplement for it. Anemia: - Patient is slightly anemic with stable hemoglobin values of 13.5, which is below the standard normal range of 14 and above. - Past and current iron levels: previous ly recorded as 300 and currently at 253, indicating improvement. Social History: - Patient reported dietary habits that i nclude frequent consumption of candy and other high-sugar foods. - Patient acknowledged a need to modify diet autonomously and expressed intent to reduce candy intake. Diagnostic Results: - Labs: - Hemoglobin A1c: 6.7% (indicati ve of diabetes). - Iron: Previously 300, currently 253 (i ndicating improvement). - Hemoglobin: 13.5 (slightly anemic). - Vitamin D: Low (specific value not pro vided). - Other tests (kidney function, electrol ytes, blood count): Within normal limits. Problem List - Type 2 Diabetes Mellitus - Vitamin D Deficiency - Anemia Patient Instructions - Control blood sugar levels by modifyin g diet, particularly reducing intake of candy, white flour products, rice, and other high-sugar foods. - Increase fruit and vegetable consumpti on and prefer white meats over red meats. - Begin taking vitamin D supplements as prescribed. - Follow up with the next lab test in ab out four months for reevaluation. - Consider consulting with a dietitian o r nurse navigator for dietary guidance, although the patient expressed a preference for self-management. Review of Systems. - General: No fever no chills - Neurological: No headaches no dizziness - Ear nose throat: No sore throat no hearing difficulty no ear pain - Cardiovascular: No syncope, no chest pain, no palpitations - Gastrointestinal: No nausea vomiting or diarrhea PFSH Medical History Hypertension, essential Lipid disorder Migraine headache Surgical History S/P right coronary artery (RCA) stent placement H/O prostatectomy History of umbilical hernia repair Hx of cholecystectomy Family History Father Skin cancer Lymphoma Mother No problems noted. Daughter Migraine Maternal Grandfather No problems noted. Maternal Grandmother No problems noted. Paternal Grandfather No problems noted. Paternal Grandmother No problems noted. Brother No problems noted. Son No problems noted. Son No problems noted. Social History Housing: House Patient Tobacco Use Status: Former Tobacco user Tobacco use type: Cigar e-Cigarette/Vaping Use: Never Used service: No Current occupational status: retired Cognitive needs: No Hearing needs: Yes Vision needs: Yes Questionnaire Thrive Questionnaire Date Thrive assessed: 05/17/24 I am a: Patient What is your living situation today?: I have a steady place to live Within the past 12 months, did the food you bought not last and you didn't have the money to get more?: Never true Within the past 12 months, did you worry whether your food would run out before you got money to buy more?: Never true Do you have trouble paying for medicines?: No Do you have trouble getting transportation to medical appointments?: No Do you have trouble paying your heating and electricity bill?: No Do you have trouble taking care of your child, family member or friend?: No Do you have trouble with day-to-day activities such as bathing, preparing meals, shopping, managing finances, etc.?: No Are you currently unemployed and looking for a job?: No Are you interested in more education?: No Please select the resources that you would like help with: None Currently or been in a relationship where the following occur: I choose not to answer THRIVE Score: 0 MAGY-7 AMB Questionnaire MAGY-7 Date MAGY - 7 assessed: 05/17/24 Source: Developed by Drs. Stu Hurt, Jaquelin Tse, Dhiraj Bar and colleagues, with an educational nilo from [employer]. Physical exam (Primary Care) Tobacco/Smoking Status: Tobacco use Status Tobacco use date assessed 05/17/24 01/18/25 09:13 Patient Tobacco Use Status Former Tobacco user 01/18/25 09:13 Tobacco use type Cigar 01/18/25 09:13 e-Cigarette/Vaping Use Never Used 01/18/25 09:13 Thrive Assessment: Date of Thrive Assessment Date Thrive assessed 05/17/24 01/18/25 09:13 Currently or been in a relationship where the following occur: I choose not to answer Telehealth Telehealth Telehealth Platform: [facility] Location of provider rendering services: practice address Location of patient: address on file Patient Identification confirmed using: Name, : Yes Telehealth method: video (attempted) Patient verbally consented to treatment: Yes Patient verbally consented to billing insurance company: Yes Patient informed of any privacy concerns related to visit: Yes Minutes spent on Phone/Video with Pt.: 14 Coding Level of Care Code Tele Est Pt Level 3 (51794) Diagnoses Diet-controlled diabetes mellitus E11.9 B12 deficiency E53.8 Vitamin D deficiency E55.9 Assessment & Plan Assessment & Plan (1) Diet-controlled diabetes mellitus: Code(s): E11.9 - Type 2 diabetes mellitus without complications Category: Medical (2) B12 deficiency: Code(s): E53.8 - Deficiency of other specified B group vitamins Category: Medical (3) Vitamin D deficiency: Code(s): E55.9 - Vitamin D deficiency, unspecified Category: Medical Plan History of Present Illness The patient is an 79-year-old male presenting with changes in diabetic status, vitamin D deficiency, and anemia. Diabetes: - Recently diagnosed as diabetic with a hemoglobin A1c level that has reached 6.7%. - Previously considered prediabetic. - No significant lifestyle changes reported that might have influenced the reduction in sugar levels. - Acknowledgment from the patient of consuming high sugar foods such as candy. Vitamin D Deficiency: - Vitamin D levels remain low. - The patient is aware of the deficiency and currently seems mistaken about taking a vitamin B12 supplement for it. Anemia: - Patient is slightly anemic with stable hemoglobin values of 13.5, which is below the standard normal range of 14 and above. - Past and current iron levels: previously recorded as 300 and currently at 253, indicating improvement. Social History: - Patient reported dietary habits that include frequent consumption of candy and other high-sugar foods. - Patient acknowledged a need to modify diet autonomously and expressed intent to reduce candy intake. Diagnostic Results: - Labs: - Hemoglobin A1c: 6.7% (indicative of diabetes). - Iron: Previously 300, currently 253 (indicating improvement). - Hemoglobin: 13.5 (slightly anemic). - Vitamin D: Low (specific value not provided). - Other tests (kidney function, electrolytes, blood count): Within normal limits. Problem List - Type 2 Diabetes Mellitus - Vitamin D Deficiency - Anemia Patient Instructions - Control blood sugar levels by modifying diet, particularly reducing intake of candy, white flour products, rice, and other high-sugar foods. - Increase fruit and vegetable consumption and prefer white meats over red meats. - Begin taking vitamin D supplements as prescribed. - Follow up with the next lab test in about four months for reevaluation. - Consider consulting with a dietitian or nurse navigator for dietary guidance, although the patient expressed a preference for self-management. Orders: Orders Magnesium Today D63.8 - Anemia in other chronic diseases classified elsewhere, E11.9 - Type 2 diabetes mellitus without complications, E53.8 - Deficiency of other specified B group vitamins, E55.9 - Vitamin D deficiency, unspecified, R79.89 - Other specified abnormal findings of blood chemistry Hemoglobin A1c Today D63.8 - Anemia in other chronic diseases classified elsewhere, E11.9 - Type 2 diabetes mellitus without complications, E53.8 - Deficiency of other specified B group vitamins, E55.9 - Vitamin D deficiency, unspecified, R79.89 - Other specified abnormal findings of blood chemistry Microalbumin, Random (w Creat) Today D63.8 - Anemia in other chronic diseases classified elsewhere, E11.9 - Type 2 diabetes mellitus without complications, E53.8 - Deficiency of other specified B group vitamins, E55.9 - Vitamin D deficiency, unspecified, R79.89 - Other specified abnormal findings of blood chemistry Ferritin Today D63.8 - Anemia in other chronic diseases classified elsewhere, E11.9 - Type 2 diabetes mellitus without complications, E53.8 - Deficiency of other specified B group vitamins, E55.9 - Vitamin D deficiency, unspecified, R79.89 - Other specified abnormal findings of blood chemistry Vitamin D 25-OH (D2 and D3) Today D63.8 - Anemia in other chronic diseases classified elsewhere, E11.9 - Type 2 diabetes mellitus without complications, E53.8 - Deficiency of other specified B group vitamins, E55.9 - Vitamin D deficiency, unspecified, R79.89 - Other specified abnormal findings of blood chemistry Vitamin B12 Today D63.8 - Anemia in other chronic diseases classified elsewhere, E11.9 - Type 2 diabetes mellitus without complications, E53.8 - Deficiency of other specified B group vitamins, E55.9 - Vitamin D deficiency, unspecified, R79.89 - Other specified abnormal findings of blood chemistry Medications: New cholecalciferol (vitamin D3) 25 mcg PO DAILY 90 caps 1RF 90 days
--- OUTSIDE RECORDS SUMMARY | 2025-01-18 09:19 | XMS_ITS | Encounter Summary ---
Author Organization [facility] Address [address] [place] [address] Phone Care Team Providers Care Supervisor Fish Processing Name Role Phone Jessica Clark MD Primary Care Provider [phone] Encounter Details Date Type Department Care Team (Late st Contact Info) Description 10/21/2022 Documentation Only [facility] [address] [place] [address] Jessica Clark MD [address] [place] [address] Social History Tobacco Use Types Packs/Day Years [...] Visit [facility] [address] [place] [address] Viraj Rogers MD [address] [place] [address] [place] [address] documented as of this encounter Visit Diagnoses Not on filedocumented in this encounter Care Teams Supervisor Fish Processing Relationship Specialty Start Date End Date Jessica Clark MD [address] [place] [address] PCP - General Internal Medicine 10/21/22 documented as of this encounter
--- OUTSIDE RECORDS SUMMARY | 2025-01-18 09:19 | XMS_ITS | Clinical Summary ---
Author Organization [facility] Address [address] [place] [address] Care Team Providers Care Industrial Energy Engineer Name Role Phone Unavailable Primary Care Provider [...] Drug Screen 04/26/2024 Depression Annual Screen 04/26/2024 [id number] (3 2024- season) 2024 04/14/2 021, 07/10/2020 Imm-Influenza (#1) 2024 Insurance [place]ARE - [place]
--- OUTSIDE RECORDS SUMMARY | 2025-01-18 09:19 | XMS_ITS | Encounter Summary ---
Author Organization [facility] Address [address] [place] [address] Phone Care Team Providers Care Environmental Change Analyst Name Role Phone Jessica Clark MD Primary Care Provider Encounter Details Date Type Department Care Team (Late st Contact Info) Description 10/22/2022 Documentation Only [facility] [address] [place] [address] Jessica Clark MD [address] [place] [address] Social History Tobacco Use Types Packs/Day Years [...] Visit [facility] [address] [place] [address] Viraj Rogers MD [address] [place] [address] [place] [address] documented as of this encounter Visit Diagnoses Not on filedocumented in this encounter Care Teams Environmental Change Analyst Relationship Specialty Start Date End Date Jessica Clark MD [address] [place] [address] PCP - General Internal Medicine 10/21/22 documented as of this encounter
--- OUTSIDE RECORDS SUMMARY | 2025-01-18 09:19 | XMS_ITS | Encounter Summary ---
Author Organization [facility] Address [address] [place] [address] Phone Care Team Providers Care Inverter And Clipper Name Role Phone Jessica Clark MD Primary Care Provider [phone] Encounter Details Date Type Department Care Team (Late st Contact Info) Description 12/28/2023 Documentation Only [facility] [address] [place] [address] Tere Shearer [address] [place] [phone] Social History Tobacco Use Types Packs/Day Years [...] Visit [facility] [address] [place] [address] Viraj Rogers MD [address] [place] [address] [place] [address] documented as of this encounter Visit Diagnoses Not on filedocumented in this encounter Care Teams Inverter And Clipper Relationship Specialty Start Date End Date Jessica Clark MD [address] [place], [place] [id number] PCP - General Internal Medicine 10/21/22 documented as of this encounter
--- OUTSIDE RECORDS SUMMARY | 2025-01-18 09:19 | XMS_ITS | Clinical Summary ---
Author Organization [facility] Address [address] [place] [address] Phone Care Team Providers Care Deposit Clerk Name Role Phone Jessica Clark MD Primary Care Provider [phone] Allergies No known active allergies Medications amitriptyline [...] Visit [facility] [place], [address] [place] [address] Viraj Rogers MD Stage 3b chronic kidney [...] Visit [facility] [place], [address] [place] [address] Viraj Rogers MD [address] [place] [address] [place] [address] Health Maintenance Due Date Last Done Comments [...] Urine 0-5 0 - 5 /hpf [facility] RBC, Urine 0-2 0 - 2 /hpf [facility] Squamous Epithelial, Urine 0-10 0 - 10 /hpf [facility] Casts None seen None seen /lpf [facility] Bacteria, Urine None seen None seen/Few [facility] 12/12/2024 1:40 PM EDT 12/12/2024 Viraj Rogers MD LAB MICROBIOLOGY - GENERAL OR DERABLES Final Result [facility] [address] [place] [phone] * Urine Albumin / Creatinine Ratio (12/12/2024 1:40 PM EDT) Creatinine, Ur 294.6 Not Estab. mg/dL [facility] Albumin, Urine 13.9 Not Estab. ug/mL [facility] Albumin/Creatin ine Ratio 5 0 - 29 mg/g creat [facility] Comment: Normal: 0 - 29 Moderately increased: 30 - 300 Severely increased: >300 12/12/2024 1:40 PM EDT 12/12/2024 Viraj Rogers MD LAB URINE ORDERABLES Final Re sult [facility] [address] [place] [address] * (ABNORMAL) Urinalysis with microscopic (12/12/2024 1:40 PM EDT) Specific [place], Urine 1.026 1.005 - 1.030 [facility] [phone] pH Urine 5.5 5.0 - 7.5 [facility] Color, Urine Yellow Yellow [facility] [phone] Appearance Urine Clear Clear [facility] [place] WBC Esterase Urine Negative Negative [facility] Protein, Ur Trace Negative/Tra ce [facility] [phone] Glucose, Ur Negative Negative [facility] Ketones, Urine Trace(A) Negative [facility] [place] Blood Urine Negative Negative [facility] Bilirubin Urine Negative Negative [facility] Urobilinogen Urine 1.0 0.2 - 1.0 mg/dL [facility] Nitrite, Urine Negative Negative [facility] [phone] Microscopic Examination Comment [facility] Comment:Microscopic follows if indicated. Other Microsc. Observations See below: [facility] Comment:Microscopic was justin cated and was performed. 12/12/2024 1:40 PM EDT 12/12/2024 us Viraj Rogers MD LAB URINE ORDERABLES Final Re sult [facility] [address] [place] [address] * CBC (12/12/2024 1:40 PM EDT) WBC 10.6 3.4 - 10.8 x10E3/uL [facility] RBC 4.55 4.14 - 5.80 x10E6/uL [facility] Hemoglobin 13.6 13.0 - 17.7 g/dL [facility] Hematocrit 40.9 37.5 - 51.0 % [facility] MCV 90 79 - 97 fL [facility] MCH 29.9 26.6 - 33.0 pg [facility] MCHC 33.3 31.5 - 35.7 g/dL [facility] RDW 13.9 11.6 - 15.4 % [facility] Platelets 301 150 - 450 x10E3/uL [facility] 12/12/2024 1:40 PM EDT 12/12/2024 Viraj Rogers MD LAB BLOOD ORDERABLES Final Re sult [facility] [address] [place] [address] * (ABNORMAL) Phosphorus (12/12/2024 1:40 PM EDT) Phosphorus 2.4(L) 2.8 - 4.1 mg/dL [facility] 12/12/2024 1:40 PM EDT 12/12/2024 Viraj Rogers MD LAB BLOOD ORDERABLES Final Re sult [facility] [address] [place] [address] * Albumin (12/12/2024 1:40 PM EDT) Albumin 4.1 3.7 - 4.7 g/dL [facility] 12/12/2024 1:40 PM EDT 12/12/2024 Viraj Rogers MD LAB BLOOD ORDERABLES [facility] [address] [place] [address] * (ABNORMAL) Basic Metabolic Panel (12/12/2024 1:40 PM EDT) Glucose 165(H) 70 - 99 mg/dL [facility] BUN 18 8 - 27 mg/dL [facility] Creatinine 1.09 0.76 - 1.27 mg/dL [facility] eGFR CKD-EPI CR 2020 68 >59 mL/min/1.7 3 [facility] BUN/Creatinine Ratio 17 10 - 24 [facility] Sodium 139 134 - 144 mmol/L [facility] Potassium 3.4(L) 3.5 - 5.2 mmol/L [facility] Chloride 100 96 - 106 mmol/L [facility] Bicarbonate (CO2) 21 20 - 29 mmol/L [facility] Calcium 9.0 8.6 - 10.2 mg/dL [facility] 12/12/2024 1:40 PM EDT 12/12/2024 Viraj Rogers MD LAB BLOOD ORDERABLES Final Re [facility] [address] [place] [address] from Last 3 Months Insurance Medicare [facility] [place] [place] [address] Care Teams Deposit Clerk Relationship Specialty Start Date End Date Jessica Clark MD [facility] [place] [address] PCP - General Internal Medicine 10/21/22
== END 2025-01-18 09:29 | disposition home or self-care (01) ==
LOC: HO.HMCC 08:45
PROVIDERS: PCP Internal Medicine; Visit Provider Internal Medicine
DX: E11.9 Type 2 diabetes mellitus without complications (principal); E53.8 Deficiency of other specified B group vitamins; E55.9 Vitamin D deficiency, unspecified

== ENCOUNTER 2025-03-30 13:18 | Outpatient (AMB) | payer MEDICARE, OTHER, SELFPAY ==
--- NOTE | 2025-03-30 13:33 | MHC.OFFWIV ---
Intake Vital Signs 03/30/25 13:34 Height 5 ft 5 in Weight 184 lb BMI 30.6 BP 130/56 L Blood Pressure Location Lt brachial Position Sitting Pulse 71 Pulse Source Pulse Oximeter Temp 97.8 F Temp Source Oral Pulse Oximetry (%) 98 Oxygen Delivery Method Room Air Intake Visit Reasons: EP right ear blockage and left ear is sore Intake Note: Patient presents c/o right ear blockage/sore & moving into left ear also. Patient Tobacco Use Status: Former Tobacco user Allergies sertraline Adverse Reaction (Unknown, Verified 03/30/25 13:36) facial numbness simvastatin Adverse Reaction (Unknown, Verified 03/30/25 13:36) sore muscles HPI HPI Comments History of Present Illness Details This is an 79-year-old male who presented to the walk-in clinic complaining of bilateral ear pain and swelling x 2 weeks. Patient states his symptoms started in his right ear. He states he gets a lot of ear wax and uses his finger nail to scrape the ear wax out. He then started to develop some pain and swelling of the right ear and he was unable to get his hearing aid and due to the swelling. He went to a different urgent care about 1-1/2 weeks ago and he was diagnosed with an ear infection and given oral amoxicillin x7 days, which he completed 4 days ago. He states that his symptoms have not gotten better but they also have not gotten worse and he started to develop left ear swelling and pain as well. He denies any fevers or chills. He denies any nasal congestion, rhinorrhea, sinus congestion, sore throat, or headaches. [facility] Medical History Hypertension, essential Lipid disorder Migraine headache Surgical History S/P right coronary artery (RCA) stent placement H/O prostatectomy History of umbilical hernia repair Hx of cholecystectomy Family History Father Skin cancer Lymphoma Mother No problems noted. Daughter Migraine Maternal Grandfather No problems noted. Maternal Grandmother No problems noted. Paternal Grandfather No problems noted. Paternal Grandmother No problems noted. Brother No problems noted. Son No problems noted. Son No problems noted. Social History Housing: House Patient Tobacco Use Status: Former Tobacco user Tobacco use type: Cigar e-Cigarette/Vaping Use: Never Used service: No Current occupational status: retired Cognitive needs: No Hearing needs: Yes Vision needs: Yes Review of Systems Const All systems reviewed & are unremarkable except as noted in HPI and below Reports no additional complaints Eyes Reports no additional complaints ENT Reports no additional complaints Card Reports no additional complaints Resp Reports no additional complaints GI Reports no additional complaints Reports no additional complaints Musc Reports no additional complaints Skin/Breast Reports system reviewed and no additional complaints, except as documented Neuro Reports no additional complaints Psych Reports no additional complaints Endo Reports no additional complaints Pal/Lymph Reports no additional complaints Aller/Immun Reports no additional complaints Physical Exam Exam Exam: Vital signs reviewed. Constitutional: Non-toxic appearing. No acute distress. Well-developed and well-nourished. HEENT: Normocephalic and atraumatic. PERRL/EOMI. There is significant erythema and edema of bilateral external auditory canals (right greater than left) and I am unable to completely visualize his tympanic membranes bilaterally although the visualized portion of the tympanic membranes appear normal without erythema, edema, or bulging. There is no postauricular swelling, erythema, or tenderness to palpation. Skin: Warm and dry. No rashes or lesions noted. Neck: Full and painless range of motion. No cervical lymphadenopathy. Cardio: Regular rate. No lower extremity edema. Pulmonary: No respiratory distress. No accessory muscle usage. Musculoskeletal: Normal range of motion in joints throughout the body. No deformity or other signs of injury. Neuro: Alert and oriented x4. Cranial nerves 2-12 grossly intact. No focal deficits appreciated. Psych: Normal mood and affect. Vital Signs: Last Vital Signs Temp 97.8 F 03/30/25 13:34 Pulse 71 03/30/25 13:34 BP 130/56 L 03/30/25 13:34 Pulse Ox 98 03/30/25 13:34 Oxygen Delivery Method Room Air 03/30/25 13:34 BMI result Body Mass Index 30.6 Assessment & Plan Assessment & Plan (1) Otitis externa of both ears: Code(s): H60.93 - Unspecified otitis externa, bilateral Qualifiers: Otitis externa type: unspecified type Chronicity: acute Qualified Code(s): H60.503 - Unspecified acute noninfective otitis externa, bilateral Plan 79-year-old male who presented to the walk-in clinic complaining of bilateral ear pain and swelling x 2 weeks. Patient was recently treated with oral amoxicillin for an ear infection but feels as though his symptoms have not gotten better or worse and he started to develop pain and swelling of his left ear, as well. On physical examination, he has significant edema and erythema of bilateral external auditory canals and nylon able to completely visualize tympanic membranes bilaterally although the visualized portion of the tympanic membranes appear normal and he was recently treated for a middle ear infection. History and physical most consistent with bilateral otitis externa. Patient was given a prescription for neomycin/polymyxin/hydrocortisone ear drops. He was advised to follow-up here if his symptoms persist for re-evaluation. Patient verbalizes understanding and he is in agreement with the plan. Medications: New hqvbaauf-jaltcnryk-SR 3.5-10,000-1 mg/mL-unit/mL-% 4 drps otic (ears) Q6H 10 mL 0RF 10 days Coding Level of Care Code Est Pt Level 3 (32293) Diagnoses Acute otitis externa of both ears, unspecified type H60.503 Otitis externa type: unspecified type Chronicity: acute
[2025-03-30 13:34] VITALS: BP 130/56; PULSE 71; TEMP 36.6; O2SAT 98; BMI 30.6
== END 2025-03-30 14:22 | disposition home or self-care (01) ==
PROVIDERS: PCP Internal Medicine; Visit Provider Physician Assistant Medical
DX: H60.503 Unspecified acute noninfective otitis externa, bilateral (principal)

== ENCOUNTER → 2025-03-30 13:18 | Outpatient (BNVA) | payer MEDICARE, OTHER, SELFPAY | PROVIDERS: PCP Internal Medicine; Visit Provider Physician Assistant Medical | DX: H60.503 Unspecified acute noninfective otitis externa, bilateral (principal) | CPT/HCPCS: 99212 ==

== ENCOUNTER 2025-04-09 12:31 | Outpatient (AMB) | payer MEDICARE, OTHER, SELFPAY ==
[2025-04-09 12:38] VITALS: BP 133/63; PULSE 76; TEMP 36.8; O2SAT 96; BMI 30.9
--- NOTE | 2025-04-09 12:38 | AM.OFFWIN_ITS ---
Intake Vital Signs 04/09/25 12:38 Height 5 ft 5 in Weight 186 lb BMI 30.9 BP 133/63 Blood Pressure Location Lt brachial Position Sitting Pulse 76 Pulse Source Pulse Oximeter Temp 98.2 F Temp Source Oral Pulse Oximetry (%) 96 Oxygen Delivery Method Room Air Intake Visit Reasons: EP - Cannot Hear Intake Note: EP hearing impaired for the last three days after he completed the course of medicine he started on Mar 30, 2025. Patient Tobacco Use Status: Former Tobacco user Allergies sertraline Adverse Reaction (Unknown, Verified 04/09/25 12:51) facial numbness simvastatin Adverse Reaction (Unknown, Verified 04/09/25 12:51) sore muscles HPI HPI Comments History of Present Illness Details History of Present Illness The patient is an 79 year old male presenting with his for follow-up of an outer ear infection and evaluation of new-onset hearing loss. - The patient was diagnosed with a middl e ear infection and treated with amoxicillin, which initially improved symptoms but ear pain persisted. - He was then seen again on 03/30/2025 an d was diagnosed with a bilateral outer ear infection. - He was prescribed neomycin-polymyxin e ar drops which he took for 8 days and has since discontinued. - He reports ear pain has resolved, staton nimisha over the last few days, has had trouble hearing more than usual - He has stopped wearing his hearing aid s when symptoms first started, however his dog recently destroy them - Patients reports that he was able to hear a little even without his hearing aids in the past, however she has been having to shout for the last few days. - He has an appointment with an audiolog ist at [facility] tomorrow to get fitted for new hearing aids. - He is currently recovering from a col d and has been having drainage and congestion - He denies any drainage from the ears, fevers, chills Review of Systems Constitutional: Negative for fevers, chills HENT: Reports bilateral hearing loss. Negative for ear pain, ear discharge. Reports congestions Physical Exam General Appearance: Normal appearance, well developed. No acute distress HEENT: Normocephalic, atraumatic. Patent left and right ear canals without swelling or pus noted. Minimal ear wax noted in left ear canal. Bilateral TM noted to be intact. Right TM with scarring noted and middle ear effusion. Left and right TM without erythema or swelling. Oropharynx clear without erythema or exudates. No significant postnasal drainage noted. Pulmonary: No respiratory distress. Speaking in full sentences Musculoskeletal: Moving all extremities spontaneously and against gravity Mental Status: Alert and Oriented x 3 Psychiatric: Normal mood. Normal affect. [facility] Medical History Hypertension, essential Lipid disorder Migraine headache Surgical History S/P right coronary artery (RCA) stent placement H/O prostatectomy History of umbilical hernia repair Hx of cholecystectomy Family History Father Skin cancer Lymphoma Mother No problems noted. Daughter Migraine Maternal Grandfather No problems noted. Maternal Grandmother No problems noted. Paternal Grandfather No problems noted. Paternal Grandmother No problems noted. Brother No problems noted. Son No problems noted. Son No problems noted. Social History Housing: House Patient Tobacco Use Status: Former Tobacco user Tobacco use type: Cigar e-Cigarette/Vaping Use: Never Used service: No Current occupational status: retired Cognitive needs: No Hearing needs: Yes Vision needs: Yes Physical Exam Vital Signs: Last Vital Signs Temp 98.2 F 04/09/25 12:38 Pulse 76 04/09/25 12:38 BP 133/63 04/09/25 12:38 Pulse Ox 96 04/09/25 12:38 Oxygen Delivery Method Room Air 04/09/25 12:38 BMI result Body Mass Index 30.9 Assessment & Plan Assessment & Plan (1) Bilateral change in hearing: Code(s): H91.93 - Unspecified hearing loss, bilateral Plan - The patient's otitis externa appears to have resolved with neomycin-polymyxin ear drops, as physical exam shows no signs of erythema, pus, or swelling. - Per chart review from office visit on 03/30/25, partial TM was visualized prior to being prescribed neomycin ear drops. Currently both tympanic membranes appear to be intact with scarring of the right TM. - The new-onset hearing loss is the primary concern. There is no apparent obstructive cause like cerumen impaction or significant canal swelling. - Fluid noted behind the right tympanic membrane, possibly related to a concurrent cold and congestion, may be a contributing factor. - Recommended trying vjrz-olt-zhadkyl Flonase (fluticasone) nasal spray, one spray in each nostril daily, to help drain fluid from the eustachian tube. Patient denies any history of glaucoma. - The patient has an upcoming appointment with his speed runner tomorrow to be fitted for new hearing aids - If hearing is still significantly impacted after obtaining new hearing aids, can consider ENT referral. - Discussed prompt medical evaluation if any new ear pain or drainage from the ears. Patient was informed and verbally consented to the use of an ambient scribe for clinic note documentation during the visit. Coding Level of Care Code Est Pt Level 3 (35971) Diagnoses Bilateral change in hearing H91.93
== END 2025-04-09 13:26 | disposition home or self-care (01) ==
LOC: HO.HMCWIS 12:31
PROVIDERS: PCP Internal Medicine; Visit Provider Family Medicine
DX: H91.93 Unspecified hearing loss, bilateral (principal)

== ENCOUNTER → 2025-04-09 12:31 | Outpatient (BNVA) | payer MEDICARE, OTHER, SELFPAY | PROVIDERS: PCP Internal Medicine; Visit Provider Family Medicine | DX: H91.93 Unspecified hearing loss, bilateral (principal) | CPT/HCPCS: 99212 ==

== ENCOUNTER 2025-04-25 06:52 | Outpatient (REF) | payer MEDICARE, OTHER, SELFPAY ==
--- OUTSIDE RECORDS SUMMARY | 2025-04-25 06:55 | XMS_ITS | Clinical Summary ---
Author Organization [facility], Address [address] [address] Phone Care Team Providers Care Lie Detector Operator Name Role Phone Jessica Clark MD Primary Care Provider [phone] Allergies No known active allergies Medications amitriptyline [...] Encounters Date Type Department Care Team Description 2025 9:10 AM EST Office Visit [facility], [address] [place] [phone] Viraj Rogers MD Prediabetes (Primary Dx); Stage 3b chronic kidney disease (HCC) from Last 3 Months Social History Tobacco [...] Care Team (Late st Contact Info) Description 05/02/2025 8:50 AM EST Office Visit [facility], [address] [phone] Viraj Rogers MD [address] [place] [address] [place] [address] Health Maintenance Due Date Last Done Comments Pneumococcal Vaccine: 50+ Ye ars (1 of 2 - PCV) 1964 Influenza Vaccine (#1) 2024 Hepatitis B Vaccine Aged Out No longe r eligible based on patient's age to complete this topic Procedures Procedure Name Priority Date/Time Associated Diagnosis Comments URINE ALBUMIN / CREATININE RATIO Routine 04/12/2025 9:28 AM EST Prediabetes BASIC METABOLIC PANEL Routine 04/12/2025 9:28 AM EST Prediabetes HEMOGLOBIN A1C Routine 04/12/2025 9:28 AM EST Prediabetes from Last 3 Months Results * Urine Albumin / Creatinine Ratio (04/12/2025 9:28 AM EST) Creatinine, Ur 171.4 Not Estab. mg/dL [facility] Albumin, Urine 7.4 Not Estab. ug/mL [facility] Albumin/Creatin ine Ratio 4 0 - 29 mg/g creat [facility] Comment: Normal: 0 - 29 Moderately increased: 30 - 300 Severely increased: >300 Urine Urine specimen obtained by clean catch procedure / Unknown 04/12/2025 9:28 AM EST 04/12/2025 Viraj Rogers MD LAB URINE ORDERABLES Final Re sult [facility] [address] [place] [address] * (ABNORMAL) Hemoglobin A1c (04/12/2025 9:28 AM EST) Hemoglobin A1C 6.7(H) 4.8 - 5.6 % [facility] Comment: Prediabetes: 5.7 - 6.4 Diabetes: >6.4 Glycemic control for adults with diabetes: <7.0 Blood Venous blood / Unknown 04/12/2025 9:28 AM EST 04/12/2025 Viraj Rogers MD LAB BLOOD ORDERABLES Final Re sult Performing Organization Address City/[facility]/ZIP Co de Phone Number [facility] [address] [place] [address] * (ABNORMAL) Basic Metabolic Panel (04/12/2025 9:28 AM EST) Glucose 132(H) 70 - 99 mg/dL [facility] BUN 20 8 - 27 mg/dL [facility] Creatinine 1.14 0.76 - 1.27 mg/dL [facility] eGFR CKD-EPI CR 2020 64 >59 mL/min/1.7 3 [facility] BUN/Creatinine Ratio 18 10 - 24 [facility] Sodium 137 134 - 144 mmol/L [facility] Potassium 4.6 3.5 - 5.2 mmol/L [facility] Chloride 98 96 - 106 mmol/L [facility] Bicarbonate (CO2) 29 20 - 29 mmol/L [facility] Calcium 9.2 8.6 - 10.2 mg/dL [facility] Blood Venous blood / Unknown 04/12/2025 9:28 AM EST 04/12/2025 us Viraj Rogers MD LAB BLOOD ORDERABLES Final Re sult [facility] [address], [address] [place] [address] from Last 3 Months Insurance Medicare [facility] [place] [address] Care Teams Lie Detector Operator Relationship Specialty Start Date End Date Jessica Clark MD [facility] [place] [address] PCP - General Internal Medicine 10/21/22
--- OUTSIDE RECORDS SUMMARY | 2025-04-25 06:55 | XMS_ITS | Encounter Summary ---
Author Organization [facility] Address [address] [place] [address] Phone Care Team Providers Care Glass Frame Fitter Name Role Phone Jessica Clark MD Primary Care Provider [phone] Encounter Details Date Type Department Care Team (Late st Contact Info) Description 10/22/2022 Documentation Only [facility] [address] [place] [address] Jessica Clark MD [address] [place] [address] Social History Tobacco Use Types Packs/Day Years [...] Visit [facility] [address] [place] [address] Viraj Rogers MD [address] [place] [address] [place] [address] documented as of this encounter Visit Diagnoses Not on filedocumented in this encounter Care Teams Glass Frame Fitter Relationship Specialty Start Date End Date Jessica Clark MD [address] [place] [address] PCP - General Internal Medicine 10/21/22 documented as of this encounter
--- OUTSIDE RECORDS SUMMARY | 2025-04-25 06:55 | XMS_ITS | Encounter Summary ---
Author Organization [facility] Address [address] [place] [address] Phone Care Team Providers Care Piping Manager Name Role Phone Jessica Clark MD Primary Care Provider [phone] Encounter Details Date Type Department Care Team (Late st Contact Info) Description 12/28/2023 Documentation Only [facility] [address] [place] [address] Tere Shearer [address] [place] [phone] Social History Tobacco Use Types Packs/Day Years [...] Visit [facility] [address] [place] [address] Viraj Rogers MD [address] [place] [address] [place] [address] documented as of this encounter Visit Diagnoses Not on filedocumented in this encounter Care Teams Piping Manager Relationship Specialty Start Date End Date Jessica Clark MD [address] [place], [place] [phone] PCP - General Internal Medicine 10/21/22 documented as of this encounter
--- OUTSIDE RECORDS SUMMARY | 2025-04-25 06:55 | XMS_ITS | Encounter Summary ---
Author Organization [facility] Address [address] [place] [address] Phone Care Team Providers Care Medical Affairs Leader Name Role Phone Jessica Clark MD Primary Care Provider [phone] Encounter Details Date Type Department Care Team (Late st Contact Info) Description 10/21/2022 Documentation Only [facility] [address] [place] [address] Jessica Clark MD [address] [place] [address] Social History Tobacco Use Types Packs/Day Years [...] Visit [facility] [address] [place] [address] Viraj Rogers MD [address] [place] [address] [place] [address] documented as of this encounter Visit Diagnoses Not on filedocumented in this encounter Care Teams Medical Affairs Leader Relationship Specialty Start Date End Date Jessica Clark MD [address] [place] [address] PCP - General Internal Medicine 10/21/22 documented as of this encounter
[2025-04-25 10:40] LABS: Microalbum/Creatinine Ratio Ur 6.9 ug/mg cr (<30)
[2025-04-25 10:51] LABS: Magnesium 2.0 mg/dL (1.6-2.6)
[2025-04-25 10:58] LABS: Ferritin 298 ng/mL (20-250)
[2025-04-25 11:03] LABS: Vitamin B12 925 pg/mL (200-900)
== END 2025-04-25 06:53 | disposition home or self-care (01) ==
LOC: HO.HMGCLDS 06:52
PROVIDERS: PCP Internal Medicine; Visit Provider Internal Medicine
DX: E11.9 Type 2 diabetes mellitus without complications (principal); E53.8 Deficiency of other specified B group vitamins; E55.9 Vitamin D deficiency, unspecified; R79.89 Other specified abnormal findings of blood chemistry; D63.8 Anemia in other chronic diseases classified elsewhere
CPT/HCPCS: 36415; 82043; 82306; 82570; 82607; 82728; 83036; 83735